=== PATIENT | female | born 1960 | race Caucasian/White ===

== ENCOUNTER 2024-11-11 07:53 | Outpatient (AMB) | payer OTHER, SELFPAY ==
--- OUTSIDE RECORDS SUMMARY | 2024-11-11 07:56 | XMS_ITS | Encounter Summary ---
Author Organization [facility] Address [address] [place] [address] [place] [phone] Phone Care Team Providers Care Environmental Services Floor Tech Name Role Phone Vince Wilcox MD Primary Care Provider + [phone] Vince Wilcox MD Primary Care Provider [phone] Bhavna Cormier MD Primary Care Provider [phone] Encounter Details Date Type Department Care Team (Late st Contact Info) Description 01/24/2021 Procedure Pass [facility] Endoscopy Admitting Dept Virtual Department [address] [place] [address] [id number] Social History Tobacco Use Types Packs/Day Years Used Date Smoking Tobacco: Former Cigarettes Q uit: 2018 Smokeless Tobacco: Former Alcohol Use Standard Drinks/Week Comments Not Currently 0 (1 standard drink = 0.6 oz pur e alcohol) Comments Unknown Sex and Gender Information Value Date Recorded Sex Assigned at Female 01/24/2021 10:32 AM EDT Legal Sex Female 8:15 AM EDT Gender Identity Female 01/24/2021 10:32 AM EDT Sexual Orientation Straight 01/24/2021 10 :32 AM EDT documented as of this encounter Plan of Treatment Upcoming Encounters Date Type Department Care Team (Late st Contact Info) Description 02/17/2025 10:00 AM EST Office Visit [facility] [address] [place], [place] [phone] Bhavna Cormier MD [address] [facility], [address] [place], [place] [id number] [email or web address] 04/29/2025 10:10 AM EST Office Visit [facility] [address] [place] [address] John Hamlin [address] [address] 11/09/2025 8:45 AM EDT Appointment [facility] [address] [place] [address] [address] [place] [address] Leonel Wesley, [address] [place] [address] 11/22/2025 9:00 AM EDT Office Visit [facility] [address] [place] [address], [address] [place] [address] Leonel Wesley, [address] [address] [email or web address] documented as of this encounter Visit Diagnoses Not on filedocumented in this encounter Care Teams Environmental Services Floor Tech Relationship Specialty Start Date End Date Vince Wilcox MD PCP - General Internal Medicine 09/13/20 02/04/24 Vince Wilcox MD [address] [place] [address] PCP - General Internal Medicine 02/05/24 06/02/24 Bhavna Cormier MD 234 [facility] 7 [place] [address] [email or web address] PCP - General Family Medicine 06/03/24 documented as of this encounter Additional Source Comments The information contained in this document represents components of the legal health record. It is not the complete legal health record.[facility]
[2024-11-11 08:02] VITALS: BP 102/62; PULSE 69; O2SAT 98; BMI 25.1
--- NOTE | 2024-11-11 08:02 | A.OFFPC_ITS ---
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 Allergies statin Adverse Reaction (Mild, Uncoded 11/11/24 08:22) Muscle Cramps Medication List - Last Reconciled 11/11/24 by Renée Gan PA-C alendronate 70 mg PO QWEEK xcxldaokgn-eblrxfdkhgkii-tcvj 50-325-40 mg 1 tab PO Q4-6H PRN dextroamphetamine-amphetamine 5 mg (Adderall) 5 mg PO DAILY levothyroxine (Unithroid) 75 mcg PO DAILY omeprazole 20 mg PO DAILY rosuvastatin 20 mg PO DAILY trazodone 50 mg PO BEDTIME PRN Tobacco use date assessed: 11/11/24 Fall risk assessment: No Falls in past year Last assessed Fall Risk: 11/11/24 Dental Screening Dental Screen Date: 11/11/24 Did you have a dental visit in the last 12 months?: Yes Did you have a dental problem in the last 6 months where you did not have access to dental care?: No Was dental information given to patient?: 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 She was last seen by her PCP 03/2024 for physical exam. At that time she was following with [facility] for bilateral cortisone injections of the hip and starting with PT. Migraines had improved and patient was continued on Adderall for ADD. Presenting for a new patient visit to establish care and discuss ongoing management of multiple chronic conditions. The patient has been managing osteoporosis with alendronate due to insurance coverage issues with her previous medication, Prolia. She is following with Dr. Hamlin through [facility] endo. The patient has a history of hyperlipidemia and has experienced muscle pain with statins, which she manages with tonic water and CoQ10 supplements. The patient experiences optical migraines approximately twice a month, managed with Fioricet. GERD is managed with omeprazole, which she uses as needed, particularly when consuming foods that may trigger symptoms. Carotid Artery Disease is monitored annually by cardiology, with no current surgical indication. Emphysema diagnosed but not requiring inhalers; the patient attends annual lung screenings. Mammogram: 12/2023. 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 1. Little interest or pleasure in doing things: not at all 2. Feeling down, depressed, or hopeless: not at all 3. Trouble falling or staying asleep, or sleeping too much: not at all 4. Feeling tired or having little energy: not at all 5. Poor appetite or overeating: not at all 6. Feeling bad about yourself - or that you are a failure or have let yourself or your family down: not at all 7. Trouble concentrating on things, such as reading the newspaper or watching television: not at all 8. Moving or speaking so slowly that other people could have noticed. Or the opposite - being so fidgety or restless that you have been moving around a lot more than usual: not at all 9. Thoughts that you would be better off or of hurting yourself in some way: not at all Total score: 0 Depression Screening Interpretation: Negative Depression Screening Done: Yes 69880 - PHQ-9 Billing: Yes Source: Developed by Drs. Alexis Granger, Dodie Reyes, Mikie Garcia and colleagues, with an educational rocco from [employer]. Thrive Questionnaire Date Thrive assessed: 11/09/24 I am a: Patient What is your living situation today?: I have a steady place to live Within the past 12 months, did the food you bought not last and you didn't have the money to get more?: Never true Within the past 12 months, did you worry whether your food would run out before you got money to buy more?: Never true Do you have trouble paying for medicines?: I choose not to answer this question Do you have trouble getting transportation to medical appointments?: No Do you have trouble paying your heating and electricity bill?: I choose not to answer this question Do you have trouble taking care of your child, family member or friend?: No Do you have trouble with day-to-day activities such as bathing, preparing meals, shopping, managing finances, etc.?: No Are you currently unemployed and looking for a job?: No Are you interested in more education?: Yes Please select the resources that you would like help with: None Currently or been in a relationship where the following occur: No concerns reported THRIVE Score: 0 AUDIT C Alcohol Use Questionnaire (AUDIT-C) 1. How often do you have a drink containing alcohol?: Never 3. How often do you have six or more drinks on one occasion?: Never Total Score: 0 Score Reviewed/Action Taken: Yes DIAN-7 AMB Questionnaire DIAN-7 Date DIAN - 7 assessed: 11/11/24 Feeling nervous, anxious, or on edge: 0 = Not at all Not being able to stop or control worryin = Not at all Worrying too much about different things: 0 = Not at all Trouble relaxin = Not at all Being so restless that it is hard to sit still: 0 = Not at all Becoming easily annoyed or irritable: 0 = Not at all Feeling afraid as if something awful might happen: 0 = Not at all Total DIAN-7 score (0-4 normal; 5-9 mild; 10-14 moderate; 15-21 severe): 0 Source: Developed by Dodie Singh Kurt Kroenke and colleagues, with an educational rocco from [employer]. DIAN-7 Assessment Billing DIAN-7 Assessment Tool: DIAN-7 Assessment 58808 Review of Systems Const Denies body aches, Denies fatigue, Denies fever(s), Denies frequent falls and Reports headache(s) (2-3 months) Eyes Reports no additional complaints, Denies change in vision and Reports requires corrective lenses ENT Denies dysphagia, Denies dizziness, Denies facial pain, Reports headache(s) (2-3 months) and Denies odynophagia Card Denies chest pain, Denies syncope, Denies irregular heart rhythm, Denies leg edema, Denies lightheadedness and Denies dyspnea Resp Denies cough and Denies dyspnea GI Denies abdominal pain, Denies constipation, Denies dysphagia, Denies dyspepsia, Denies diarrhea, Denies nausea, Denies odynophagia and Denies vomiting Denies urinary frequency, Denies dysuria, Denies urinary hesitancy and Denies urinary urgency Musc Details: pepito knee pain Denies back pain Skin/Breast Reports system reviewed and no additional complaints, except as documented Neuro Denies dizziness, Denies syncope, Denies frequent falls and Reports headache(s) (2-3 months) Psych Reports no additional complaints Endo Denies fatigue Physical exam (Primary Care) Vital Signs: Last Vital Signs Pulse 69 11/11/24 08:02 BP 102/62 11/11/24 08:02 Pulse Ox 98 11/11/24 08:02 Oxygen Delivery Method Room Air 11/11/24 08:02 BMI result Body Mass Index 25.1 Tobacco/Smoking Status: Tobacco use Status Tobacco use date assessed 11/11/24 11/11/24 08:17 Patient Tobacco Use Status Former Tobacco user 11/11/24 08:17 Tobacco use type Cigarette 11/11/24 08:17 e-Cigarette/Vaping Use Never Used 11/11/24 08:17 PHQ-9: PHQ-9 Score PHQ-9: Total score 0 11/11/24 08:21 Depression Screening Interpretation: Negative Thrive Assessment: Date of Thrive Assessment Date Thrive assessed 11/09/24 11/11/24 08:02 Currently or been in a relationship where the following occur: No concerns reported Const General: cooperative, healthy appearing, comfortable and no acute distress Orientation/consciousness: patient oriented x3 [facility] Head: Yes normocephalic Ears: hearing grossly normal bilaterally General nose exam: Normal external nose present Eyes General: appearance normal, both eyes and all related structures Conjunctivae: conjunctivae normal Neck Neck: Yes full ROM and Yes no lymphadenopathy Resp Effort & Inspection: normal respiratory effort Auscultation: clear to auscultation bilaterally, no crackles, no rales, no rhonchi and no wheezes Cardio Rate: regular rate Rhythm: regular rhythm Skin General skin exam: no rashes or lesions noted Neuro General: patient oriented x3 Gait exam (Neuro): Normal gait present Extrem General: Yes normal to inspection, Yes full ROM and No edema Psych Affect: normal affect Attitude: cooperative Insight: Good insight present (Psych) Judgement: Good judgement present (Psych) Coding Level of Care Code New Pt Level 4 (76888) Diagnoses ADD (attention deficit disorder) F98.8 Bilateral carotid artery disease I77.9 Hypothyroidism following radioiodine therapy E89.0 Osteoporosis M81.0 PUD (peptic ulcer disease) K27.9 Migraines G43.909 Emphysema lung J43.9 Insomnia G47.00 Hyperglycemia R73.9 Hypercholesterolemia E78.00 Additional Codes DIAN-7 Assessment Billing - DIAN-7 Assessment Tool: DIAN-7 Assessment 66631 ([id number]) PHQ-9 - 12812 - PHQ-9 Billing: Yes ([id number]) Assessment & Plan Assessment & Plan (1) ADD (attention deficit disorder): Code(s): F98.8 - Other specified behavioral and emotional disorders with onset usually occurring in childhood and adolescence Category: Medical Plan: She is on Adderall 5mg QD and feels this is beneficial. Plan to maintain this Rx for this patient. (2) Bilateral carotid artery disease: Comment: Not surgically and follows yearly with vascular Code(s): I77.9 - Disorder of arteries and arterioles, unspecified Category: Medical Plan: Following with [facility] cardiology yearly for this concern. She was previously on ASA but was discontinue and she is unsure of the reason. Plan to obtain records from cardiology and continue to follow with their office. LDL goal less than 70. (3) Hypothyroidism following radioiodine therapy: Code(s): E89.0 - Postprocedural hypothyroidism Category: Medical Plan: Continue to follow with endocrinology and currently on Levothyroxine 75mcg. Ordered for repeat blood work. (4) Osteoporosis: Comment: Dr. Hamlin [facility] endo Code(s): M81.0 - Age-related osteoporosis without current pathological fracture Category: Medical Plan: She is currently following with [facility] endo and was previously on Prolia injections prior to insurance changing. She was switched to Alendronate as the injection was no longer covered. Reviewed adverse reactions of this medication with the patient today. Continue to follow with endo. (5) PUD (peptic ulcer disease): Code(s): K27.9 - Peptic ulcer, site unspecified, unspecified as acute or chronic, without hemorrhage or perforation Category: Medical Plan: Avoid trigger foods such as citrus, tomato products, soda, caffeine, spicy foods and other foods that may be irritating to your stomach. Avoid laying flat 3-4 hours after eating and elevate the head of the bed 30 degrees to prevent acid from moving into the esophagus. (6) Migraines: Code(s): G43.909 - Migraine, unspecified, not intractable, without status migrainosus Category: Medical Plan: Patient experiences migraines 1-2x per month and uses Fioricet as needed. She will continue on this medication as she has had good benefit. Should migraines become more frequent will plan to discuss maintenance medication at that time. (7) Emphysema lung: Comment: Annual lung cancer screening Code(s): J43.9 - Emphysema, unspecified Category: Medical Plan: She participates in annual lung cancer screening program through [facility]. Not currently on inhalers and feels her breathing is well managed at this time. (8) Insomnia: Code(s): G47.00 - Insomnia, unspecified Category: Medical Plan: Patient uses Trazodone with good benefit. (9) Hyperglycemia: Code(s): R73.9 - Hyperglycemia, unspecified Category: Medical Plan: Decrease the amount of carbohydrates such as pasta, bread, rice, and potatoes and limit the amount of sweets. Although fruits are generally healthy they should be eaten in moderation as they are still high in sugar. Given resources today and ordered for updated blood work. (10) Hypercholesterolemia: Code(s): E78.00 - Pure hypercholesterolemia, unspecified Category: Medical Plan: Avoid foods that are high in cholesterol such as red meat, fried foods, eggs and baked goods. Triglyceride goal of less than 150 and LDL goal of less than 70. Continue on Rosuvastatin 20mg. Orderedfor updated blood work. Plan The patient will continue with alendronate for osteoporosis management, ensuring adherence to administration guidelines to prevent esophageal irritation. Regular follow-up with the animal husbandry teacher is advised to monitor bone health and medication efficacy. For hyperlipidemia, the patient is encouraged to maintain consistent medication adherence and consider lifestyle modifications, including dietary changes and increased physical activity, to manage cholesterol levels effectively. Migraine management will continue with Fioricet as needed, and the patient is advised to monitor for any changes in frequency or severity. Hypothyroidism will be managed with ongoing levothyroxine therapy, with regular monitoring of thyroid function tests. GERD management includes the use of omeprazole as needed, particularly when consuming trigger foods. Insomnia management will continue with trazodone as needed, with attention to sleep hygiene practices. The patient will continue to monitor carotid artery disease with annual evaluations, and emphysema will be monitored through annual lung screenings. This note was constructed using voice recognition software. While every effort has been made to ensure accuracy and auto design checker, still areas may have been included sometimes these areas may affect the content or meeting of the given symptoms. Total time spent caring for the patient today was 30 minutes. This includes time spent before the visit reviewing the chart, time spent during the visit, and time spent after the visit and documentation. Patient was informed a nd verbally consented to the use of an ambient scribe for clinic note documentation during this visit. Orders: Orders Lipid Panel Today E78.00 - Pure hypercholesterolemia, unspecified, I77.9 - Disorder of arteries and arterioles, unspecified TSH reflex Free T4 Today E89.0 - Postprocedural hypothyroidism Complete Blood Count Auto Diff Today K27.9 - Peptic ulcer, site unspecified, unspecified as acute or chronic, without hemorrhage or perforation, Z00.00 - Encounter for general adult medical examination without abnormal findings Vitamin B12 and Folate Today M81.0 - Age-related osteoporosis without current pathological fracture, Z13.21 - Encounter for screening for nutritional disorder Vitamin D 25-OH Total Today M81.0 - Age-related osteoporosis without current pathological fracture, Z13.21 - Encounter for screening for nutritional disorder Hemoglobin A1c Today E11.65 - Type 2 diabetes mellitus with hyperglycemia, R73.9 - Hyperglycemia, unspecified Free T4 (Free Thyroxine) Today E89.0 - Postprocedural hypothyroidism
== END 2024-11-11 08:50 | disposition home or self-care (01) ==
LOC: HO.HMCH 07:53
DX: J43.9 Emphysema, unspecified (principal); F98.8 Other specified behavioral and emotional disorders with onset usually occurring in childhood and adolescence; I77.9 Disorder of arteries and arterioles, unspecified; E89.0 Postprocedural hypothyroidism; M81.0 Age-related osteoporosis without current pathological fracture; K27.9 Peptic ulcer, site unspecified, unspecified as acute or chronic, without hemorrhage or perforation; G43.909 Migraine, unspecified, not intractable, without status migrainosus; G47.00 Insomnia, unspecified; R73.9 Hyperglycemia, unspecified; E78.00 Pure hypercholesterolemia, unspecified

== ENCOUNTER → 2024-11-11 07:53 | Outpatient (BNVA) | payer OTHER, SELFPAY | DX: M81.0 Age-related osteoporosis without current pathological fracture (principal); J43.9 Emphysema, unspecified; F98.8 Other specified behavioral and emotional disorders with onset usually occurring in childhood and adolescence; E78.00 Pure hypercholesterolemia, unspecified; E03.9 Hypothyroidism, unspecified; G47.00 Insomnia, unspecified; G43.909 Migraine, unspecified, not intractable, without status migrainosus; R35.0 Frequency of micturition | CPT/HCPCS: 96127 ==

== ENCOUNTER 2024-12-12 09:33 | Outpatient (REF) | payer OTHER, SELFPAY ==
--- OUTSIDE RECORDS SUMMARY | 2024-12-12 09:38 | XMS_ITS | Encounter Summary ---
Author Organization [facility] Address [address] [place] [address] Phone Care Team Providers Care Leather Stamper Name Role Phone Vince Wilcox MD Primary Care Provider [phone] Vince Wilcox MD Primary Care Provider [phone] Bhavna Cormier MD Primary Care Provider [phone] Encounter Details Date Type Department Care Team (Latest Contact Info) Description 09/14/2020 Transcribe Orders Virtual Department [address] [place] [address] Dodie Norman NP [address] [place] [id number] Dysphagia, pharyngoesophageal phase (Primary Dx) Social History Tobacco Use Types Packs/Day Years Used Date Smoking Tobacco: Never Assessed Comments Unknown Sex and Gender Information Value [...] Description 02/17/2025 10:00 AM EST Office Visit [facility] [address] [place], [place] [phone] Bhavna Cormier MD [address] [facility], [address] [place] [address] [email or web address] 04/29/2025 10:10 AM EST Office Visit [facility] [address] [place] [address] [place] [address] John Hamlin, [address] [address] 11/09/2025 8:45 AM EDT Appointment [facility] [address] [place] [address] Leonel Wesley, [address] [place] [address] 11/22/2025 9:00 AM EDT Office Visit [facility] [address] [place] [address] [address] [facility], [address] [place] [address] Leonel Wesley, [address] [place] [address] [email or web address] documented as of this encounter Visit Diagnoses Diagnosis Dysphagia, pharyngoesophageal phase- Primary documented in this encounter Care Teams Leather Stamper Relationship Specialty Start Date End Date Vince Wilcox MD PCP - General Internal Medicine 09/13/20 02/04/24 Vince Wilcox MD [facility] [address] PCP - General Internal Medicine 02/05/24 06/02/24 Bhavna Cormier MD [address] [facility], [address] [place] [address] [email or web address] PCP - General Family Medicine 06/03/24 documented as of this encounter Additional Source Comments The information contained in this document represents components of the legal health record. It is not the complete legal health record.[facility]
--- OUTSIDE RECORDS SUMMARY | 2024-12-12 09:38 | XMS_ITS | Encounter Summary ---
Author Organization [facility] Address [address] [place] [address] Phone Care Team Providers Care Cigar Packer And Shader Name Role Phone Vince Wilcox MD Primary Care Provider [phone] Vince Wilcox MD Primary Care Provider [phone] Bhavna Cormier MD Primary Care Provider [phone] Encounter Details Date Type Department Care Team (Late st Contact Info) Description 10/07/2020 Ancillary Orders Virtual Department 30 [place] [address] Dodie Norman NP 10 [place] [address] Dysphagia, unspecified type Social History Tobacco Use Types Packs/Day Years [...] Description 02/17/2025 10:00 AM EST Office Visit [facility] [address] [place] [address] Bhavna Cormier MD [address] [place] [address], [address] [place] [address] [email or web address] 04/29/2025 10:10 AM EST Office Visit [facility] [address] [place] [address] [place] [address] John Hamlin [address] [address] 11/09/2025 8:45 AM EDT Appointment [facility] [address] [place] [address] Leonel Wesley, [address] [place] [address] 11/22/2025 9:00 AM EDT Office Visit [facility] [address] [place] [address], [address] [place] [address] Leonel Wesley [address] [place] [address] documented as of this encounter Results * FL BARIUM SWALLOW ESOPHAGRAM DOUBLE CONTRAST (10/28/2020 9:33 AM EDT) Anatomical Region Laterality Modality Chest Computed Radiogr aphy 10/28/2020 10:2 2 AM EDT Impressions 10/28/2020 10:32 AM EDT 1.Severe esophageal dysmotility. 2.Suggestion of ulceration of the distal esophagus. Recommend direct visualization with endoscopy. 3.Large hiatal hernia. Narrative 10/28/2020 10:32 AM EDT TECHNIQUE: BARIUM SWALLOW was performed with Sodium Carbonate and Barium. OPERATORS: Dr. Aquiles Ross COMPARISON: None available. FINDINGS: Swallow: The swallowing mechanism was grossly normal. There was esophageal dysmotility, with nonpropulsive contractions and tertiary contractions identified. During swallowing of heavy barium liquid, there was the suggestion of ulceration of the distal esophagus, though this was not definitively present during swallowing of thin barium. The esophagus was normally distensible. Gastroesophageal junction: There was a large hiatal hernia. Reflux: Assessment for gastroesophageal reflux was equivocal for evidence of reflux. A barium tablet was administered, which passed easily into the stomach. Radiation Exposure: Fluoroscopy Time: 2 minutes 38 seconds, Dose: 70.48 mGy, Dose Area Product (DAP): 1304.19 uGy * m^2, Number of total images: 437 Procedure Note Aquiles Ross MD - 10/28/2020 TECHNIQUE: BARIUM SWALLOW was performed with Sodium Carbonate and Barium. OPERATORS: Dr. Aquiles Ross COMPARISON: None available. FINDINGS: Swallow: The swallowing mechanism was grossly normal. There wasesophageal dysmotility, with nonpropulsive contractions and tertiarycontractions identified. During swallowing of heavy barium liquid, therewas the suggestion of ulceration of the distal esophagus, though this wasnot definitively present during swallowing of thin barium. The esophaguswas normally distensible. Gastroesophageal junction: There was a large hiatal hernia. Reflux: Assessment for gastroesophageal reflux was equivocal for evidenceof reflux. A barium tablet was administered, which passed easily into the stomach. Radiation Exposure: Fluoroscopy Time: 2 minutes 38 seconds, Dose: 70.48 mGy, Dose Area Product (DAP): 1304.19 uGy * m^2, Number of total images: 437 IMPRESSION: 1.Severe esophageal dysmotility. 2.Suggestion of ulceration of the distal esophagus. Recommend directvisualization with endoscopy. 3.Large hiatal hernia. Dodie Norman NP IMG FL MISC Final Res ult documented in this encounter Visit Diagnoses Diagnosis Dysphagia, unspecified type Dysphagia, unspecified type documented in this encounter Care Teams Cigar Packer And Shader Relationship Specialty Start Date End Date Vince Wilcox MD PCP - General Internal Medicine 09/13/20 02/04/24 Vince Wilcox MD [address] [place] [address] PCP - General Internal Medicine 02/05/24 06/02/24 Bhavna Cormier MD [address] [place] [address] 7 [place] [address] [email or web address] PCP - General Family Medicine 06/03/24 documented as of this encounter Additional Source Comments The information contained in this document represents components of the legal health record. It is not the complete legal health record.[facility]
--- OUTSIDE RECORDS SUMMARY | 2024-12-12 09:38 | XMS_ITS | Encounter Summary ---
Author Organization [facility] Address [address] [place] [address] Phone Care Team Providers Care Baseball Pitcher Name Role Phone Vince Wilcox MD Primary Care Provider [phone] Vince Wilcox MD Primary Care Provider [phone] Bhavna Cormier MD Primary Care Provider Reason for Referral * MRI/CAT Scan - Closed Specialty Diagnoses / Procedures Referred By Michael wilson Referred To Contact Radiology Diagnoses Abdominal pain, unspecified abdominal location Procedures CT Abdomen/Pelvis CHG CT SCAN,ABDOMENT AND PELVIS,W CONTRAST Arleth Redd PA 10 [place] [address] Phone: tel: fax: Referral ID Status Reason Start Date Expiration Date Visits Re quested Visits Authorized [id number] Closed 05/01/2023 06/30/2023 1 1 Encounter Details Date Type Department Care Team (Latest Contact Info) Description 05/01/2023 Transcribe Orders Virtual Department [address] [place] [address] Arleth Redd PA 10 [place] [address] Abdominal pain, unspecified abdominal location (Primary Dx) Social History Tobacco Use Types Packs/Day Years Used Date Smoking Tobacco: Former Cigarettes 2017 Smokeless Tobacco: Former Alcohol Use Standard Drinks/Week Comments Not Currently 0 (1 standard drink = 0.6 oz pur e alcohol) Education Answer Date Recorded Are you interested in more education? Not on kim e 07/28/2022 Are you concerned about learning? Not on file 07/28/2022 No 07/28/2022 No 07/28/2022 Digital Access Answer Date Recorded No 08/28/2022 No 08/28/2022 Reliable internet access at home? Not on file 08/28/2022 Device with a working camera? 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 Not on file Not on file documented as of this encounter Plan of Treatment Upcoming Encounters Date Type Department Care Team (Late st Contact Info) Description 02/17/2025 10:00 AM EST Office Visit [facility] [address] [place] [address] Bhavna Cormier MD 234 [facility] 7 [place] [address] [email or web address] 04/29/2025 10:10 AM EST Office Visit [facility] [address] [place] [address] John Hamlin [address] [address] 11/09/2025 8:45 AM EDT Appointment [facility] [place] 3rd [place] [address] Leonel Wesley, 22 [facility] [address] [place] [address] .[place] 11/22/2025 9:00 AM EDT Office Visit [facility] 22 [facility] 3rd Floor, [address] [place] [address] Leonel Wesley DO 22 [facility] [address] [place] [address] [email or web address] documented as of this encounter Results * CT ABDOMEN/PELVIS WITH CONTRAST (06/06/2023 4:39 PM EST) Anatomical Region Laterality Modality Abdomen, Pelvis Computed Tomogra phy 06/07/2023 5:29 PM EST Impressions 06/08/2023 6:44 AM EST Impression: No abdominopelvic acute inflammation. Moderate-sized hiatal hernia containing nonobstructed stomach. Mild extrahepatic bile duct dilation; a cause is not visualized. No intrahepatic bile duct dilation or abnormal gallbladder distention. Indeterminate 1.9 cm left ovarian lesion. RECOMMENDATION: -Consider abdominal MRI/MRCP to further evaluate for a cause of mild extrahepatic bile duct dilation. -Consider pelvic ultrasound to further evaluate left ovarian finding. Narrative 06/08/2023 6:[address] ABDOMEN/PELVIS WITH CONTRAST Referring clinician's provided indication for this examination in Epic: Outside Radiology Order; ABDOMINAL PAIN TECHNIQUE: Multidetector-row CT of the abdomen and pelvis was performed after administration of intravenous contrast using tailored dose modulation techniques. Images were reconstructed in the axial, coronal, and sagittal planes. COMPARISON: FL BARIUM SWALLOW ESOPHAGRAM DOUBLE CONTRAST FINDINGS: Lower Chest: Moderate sized hiatal hernia. Subsegmental atelectasis at the posterior lower lobes. Liver: No suspicious focal lesion. Biliary: Dilation of extrahepatic bile duct measuring up to 10 mm diameter. No intrahepatic bile duct dilation. Nondistended gallbladder with fundal adenomyomatosis. Spleen: No splenomegaly or suspicious focal lesion. Pancreas: No mass or main duct dilation. Adrenal Glands: No nodule. Kidneys/Ureters: No urolithiasis, hydronephrosis, or solid renal mass. Pelvic Organs/Bladder: Hysterectomy. No focal bladder wall thickening. Left ovary contains a 1.9 cm hypoattenuating round lesion (3:159). Bowel: No abnormal wall thickening or distension. Large colonic stool volume.. Peritoneum/Retroperitoneum: No free fluid, free air, or mass. Lymph Nodes: No abnormally enlarged lymph nodes. Vessels: No aortic aneurysm. Atherosclerotic changes. Bones/Soft Tissues: No destructive osseous lesion. Left iliac sclerotic lesion, likely bone island. Grade 1 degenerative anterolisthesis of L5 on S1. Degenerative changes. Procedure Note Josiah Valenzuela MD - 06/08/2023 CT ABDOMEN/PELVIS WITH CONTRAST Referring clinician's provided indication for this examination in Epic:Outside Radiology Order; ABDOMINAL PAIN TECHNIQUE: Multidetector-row CT of the abdomen and pelvis was performedafter administration of intravenous contrast using tailored dosemodulation techniques. Images were reconstructed in the axial, coronal,and sagittal planes. COMPARISON: FL BARIUM SWALLOW ESOPHAGRAM DOUBLE CONTRAST FINDINGS: Lower Chest: Moderate sized hiatal hernia. Subsegmental atelectasis at theposterior lower lobes. Liver: No suspicious focal lesion. Biliary: Dilation of extrahepatic bile duct measuring up to 10 mmdiameter. No intrahepatic bile duct dilation. Nondistended gallbladderwith fundal adenomyomatosis. Spleen: No splenomegaly or suspicious focal lesion. Pancreas: No mass or main duct dilation. Adrenal Glands: No nodule. Kidneys/Ureters: No urolithiasis, hydronephrosis, or solid renal mass. Pelvic Organs/Bladder: Hysterectomy. No focal bladder wall thickening.Left ovary contains a 1.9 cm hypoattenuating round lesion (3:159). Bowel: No abnormal wall thickening or distension. Large colonic stoolvolume.. Peritoneum/Retroperitoneum: No free fluid, free air, or mass. Lymph Nodes: No abnormally enlarged lymph nodes. Vessels: No aortic aneurysm. Atherosclerotic changes. Bones/Soft Tissues: No destructive osseous lesion. Left iliac scleroticlesion, likely bone island. Grade 1 degenerative anterolisthesis of L5 onS1. Degenerative changes. IMPRESSION: Impression: No abdominopelvic acute inflammation. Moderate-sized hiatal hernia containing nonobstructed stomach. Mild extrahepatic bile duct dilation; a cause is not visualized. Nointrahepatic bile duct dilation or abnormal gallbladder distention. Indeterminate 1.9 cm left ovarian lesion. RECOMMENDATION: -Consider abdominal MRI/MRCP to further evaluate for a cause of mildextrahepatic bile duct dilation. -Consider pelvic ultrasound to further evaluate left ovarian finding. us Arleth KHAN IMG CT ABD/PELVIS Final Res ult documented in this encounter Visit Diagnoses Diagnosis Abdominal pain, unspecified abdominal location- Primary Abdominal pain, unspecified abdominal location documented in this encounter Care Teams Baseball Pitcher Relationship Specialty Start Date End Date Vince Wilcox MD PCP - General Internal Medicine 09/13/20 02/04/24 [place] [address] [place] [address] PCP - General Internal Medicine 02/05/24 06/02/24 Bhavna Cormier MD [address] [place] [address], [address] [place] [address] [email or web address] PCP - General Family Medicine 06/03/24 documented as of this encounter Additional Source Comments The information contained in this document represents components of the legal health record. It is not the complete legal health record.[facility]
--- OUTSIDE RECORDS SUMMARY | 2024-12-12 09:38 | XMS_ITS | Encounter Summary ---
Author Organization [facility] Address [facility] [employer] [facility] [address] [place] [address] Phone Care Team Providers Care Hose Sprayer Name Role Phone Vince Wilcox MD Primary Care Provider [phone] Vince Wilcox MD Primary Care Provider [phone] Bhavna Cormier MD Primary Care Provider [phone] Encounter Details Date Type Department Care Team (Late st Contact Info) Description 10/31/2020 Procedure Pass [facility] [address] [place] [address] Social History Tobacco Use Types Packs/Day Years [...] Description 02/17/2025 10:00 AM EST Office Visit [facility] [address] [place] [address] Bhavna Cormier MD 234 [facility], [address] [place], [place] [id number] [email or web address] 04/29/2025 10:10 AM EST Office Visit [facility] [address] [place] [address] John Hamlin, [address] [address] 11/09/2025 8:45 AM EDT Appointment [facility] [place] [address] [place] [address] Leonel Wesley, DO [address] [place] [address] [place] [address] 11/22/2025 9:00 AM EDT Office Visit [facility] [address], [address] [place] [address] Leonel Wesley [address] [place] [address] [email or web address] documented as of this encounter Visit Diagnoses Not on filedocumented in this encounter Care Teams Hose Sprayer Relationship Specialty Start Date End Date Vince Wilcox MD PCP - General Internal Medicine 09/13/20 02/04/24 Vince Wilcox MD [facility] [address] PCP - General Internal Medicine 02/05/24 06/02/24 Bhavna Cormier MD 234 [facility] 7 [place] [address] [email or web address] PCP - General Family Medicine 06/03/24 documented as of this encounter Additional Source Comments The information contained in this document represents components of the legal health record. It is not the complete legal health record.[facility]
--- OUTSIDE RECORDS SUMMARY | 2024-12-12 09:38 | XMS_ITS | Encounter Summary ---
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 Not on file Not on file documented as of this encounter Plan of Treatment Upcoming Encounters Date Type Department Care Team (Late st Contact Info) Description 02/17/2025 10:00 AM EST Office Visit [facility] [address] [place] [address] Bhavna Cormier MD 234 [facility] 7 [place] [address] [email or web address] 04/29/2025 10:10 AM EST Office Visit [facility] [address] [place] [address] John Hamlin [address] [address] 11/09/2025 8:45 AM EDT Appointment [facility] [address] [address] Leonel Wesley, [address] [address] 11/22/2025 9:00 AM EDT Office Visit [facility] [address] [place] [address], [address] [place] [address] Leonel Wesley, [address] [address] documented as of this encounter Visit Diagnoses Not on filedocumented in this encounter Care Teams Music Pastor Relationship Specialty Start Date End Date Vince Wilcox MD PCP - General Internal Medicine 09/13/20 02/04/24 Vince Wilcox MD [address] [address] PCP - General Internal Medicine 02/05/24 06/02/24 Bhavna Cormier MD [address] [place] [address] 7 [place] [address] [email or web address] PCP - General Family Medicine 06/03/24 documented as of this encounter Additional Source Comments The information contained in this document represents components of the legal health record. It is not the complete legal health record.[facility]
--- OUTSIDE RECORDS SUMMARY | 2024-12-12 09:38 | XMS_ITS | Encounter Summary ---
Author Organization [facility] Address [address] [place] [address] Phone Care Team Providers Care Netezza Developer Name Role Phone Vince Wilcox MD Primary Care Provider [phone] Vince Wilcox MD Primary Care Provider [phone] Bhavna Cormier MD Primary Care Provider Reason for Referral * MRI/CAT Scan - Closed Specialty Diagnoses / Procedures Referred By Michael wilson Referred To Contact Radiology Diagnoses Dilated bile duct Procedures MRI Cholangiopancreatography (MRCP) CHG MRI, ABDOMEN, COMBO Arleth Redd PA [address] [place] [address] Phone: tel: fax: Referral ID Status Reason Start Date Expiration Date Visits Re quested Visits Authorized [id number] Closed 06/17/2023 08/16/2023 1 1 Encounter Details Date Type Department Care Team (Latest Contact Info) Description 06/27/2023 Transcribe Orders Virtual Department 30 [place] [address] Arleth Redd PA [address] [place], [place] [id number] Dilated bile duct (Primary Dx) Social History Tobacco Use Types [...] 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 on file Not on file documented as of this encounter Plan of Treatment Upcoming Encounters Date Type Department Care Team (Late st Contact Info) Description 02/17/2025 10:00 AM EST Office Visit [facility] [address] [place] [address] Bhavna Cormier MD 234 [facility] 7 [place] [address] [email or web address] 04/29/2025 10:10 AM EST Office Visit [facility] [address] [place] [address] Jhon Hamlin, 22 [place] [address] 11/09/2025 8:45 AM EDT Appointment [facility] [place] [address] [place] [address] 3rd [place] [address] Leonel Wesley, 22 [facility] [address] [place] [address] [email or web address] 11/22/2025 9:00 AM EDT Office Visit [facility] 22 [facility] 3rd Floor, [address] [place] [address] Leonel Wesley, 22 [facility] [address] [place] [address] [email or web address] documented as of this encounter Results * MRI CHOLANGIOPANCREATOGRAPHY (MRCP) WITH AND WITHOUT CONTRAST (07/10/2023 5:27 PM EDT) Anatomical Region Laterality Modality Pancreas, Biliary Magnetic Reson ance 07/11/2023 8:41 PM EDT Impressions 07/12/2023 6:00 AM EDT No choledocholithiasis or other cause for mild extrahepatic bile duct dilation identified. No intrahepatic bile duct dilation. Narrative 07/12/2023 6:00 AM EDT MRI CHOLANGIOPANCREATOGRAPHY (MRCP) WITH AND WITHOUT CONTRAST Referring clinician's provided indication for this examination in Epic: Outside Radiology Order; bile duct dilation TECHNIQUE: Multiplanar MR imaging of the abdomen was performed using T1, T2, fat saturated, and diffusion weighted techniques. 2D and 3D MRCP sequences were performed. Dynamic multiphase imaging was also performed after administration of an intravenous gadolinium contrast agent. COMPARISON: CT ABDOMEN/PELVIS WITH CONTRAST FINDINGS: Lower Chest: No significant change in moderate-sized hiatal hernia. Liver: No global signal abnormality or suspicious focal lesion. Few punctate simple appearing cysts. Biliary: No intrahepatic bile duct dilation. Mild extrahepatic bile duct prominence measuring up to 9 mm diameter. No obstructing stone or mass identified. Noninflamed gallbladder with fundal adenomyomatosis. Spleen: No splenomegaly or suspicious focal lesion. Pancreas: No solid mass or main duct dilation. Adrenal Glands: No nodule. Kidneys/Ureters: No solid renal mass or hydronephrosis. Peritoneum/Retroperitoneum: No abdominal free fluid or mass. Lymph Nodes: No lymphadenopathy. Vessels: No abdominal aortic aneurysm. Bones/Soft Tissues: No suspicious osseous lesion. Degenerative changes. Procedure Note Josiah Valenzuela MD - 07/12/2023 MRI CHOLANGIOPANCREATOGRAPHY (MRCP) WITH AND WITHOUT CONTRAST Referring clinician's provided indication for this examination in Epic:Outside Radiology Order; bile duct dilation TECHNIQUE: Multiplanar MR imaging of the abdomen was performed using T1,T2, fat saturated, and diffusion weighted techniques. 2D and 3D MRCPsequences were performed. Dynamic multiphase imaging was also performedafter administration of an intravenous gadolinium contrast agent. COMPARISON: CT ABDOMEN/PELVIS WITH CONTRAST FINDINGS: Lower Chest: No significant change in moderate-sized hiatal hernia. Liver: No global signal abnormality or suspicious focal lesion. Fewpunctate simple appearing cysts. Biliary: No intrahepatic bile duct dilation. Mild extrahepatic bile ductprominence measuring up to 9 mm diameter. No obstructing stone or massidentified. Noninflamed gallbladder with fundal adenomyomatosis. Spleen: No splenomegaly or suspicious focal lesion. Pancreas: No solid mass or main duct dilation. Adrenal Glands: No nodule. Kidneys/Ureters: No solid renal mass or hydronephrosis. Peritoneum/Retroperitoneum: No abdominal free fluid or mass. Lymph Nodes: No lymphadenopathy. Vessels: No abdominal aortic aneurysm. Bones/Soft Tissues: No suspicious osseous lesion. Degenerative changes. IMPRESSION: No choledocholithiasis or other cause for mild extrahepatic bile ductdilation identified. No intrahepatic bile duct dilation. us Arleth KHAN IMG MR ABDOMEN Final Resul t documented in this encounter Visit Diagnoses Diagnosis Dilated bile duct- Primary Dilated bile duct documented in this encounter Care Teams Netezza Developer Relationship Specialty Start Date End Date Vince Wilcox MD PCP - General Internal Medicine 09/13/20 02/04/24 Vince Wlicox MD [address] [place] [address] PCP - General Internal Medicine 02/05/24 06/02/24 Bhavna Cormier MD [address] [place] [address], [address] [place] [address] [email or web address] PCP - General Family Medicine 06/03/24 documented as of this encounter Additional Source Comments The information contained in this document represents components of the legal health record. It is not the complete legal health record.[facility]
--- OUTSIDE RECORDS SUMMARY | 2024-12-12 09:38 | XMS_ITS | Encounter Summary ---
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 [address] [place] [address] Bhavna Cormier MD 234 [facility] 7 [place] [address] [email or web address] [email or web address] 04/29/2025 10:10 AM EST Office Visit [facility] [address] [place] [address] John Hamlin [address] [address] 11/09/2025 8:45 AM EDT Appointment [facility] [address] [address] Leonel Wesley, [address] [address] 11/22/2025 9:00 AM EDT Office Visit [facility] [address] [place] [address], [address] [place] [address] Leonel Wesley, [address] [address] documented as of this encounter Visit Diagnoses Not on filedocumented in this encounter Care Teams Nutrition Club Ambassador Relationship Specialty Start Date End Date Vince Wilcox MD PCP - General Internal Medicine 09/13/20 02/04/24 Vince Wilcox MD [address] [address] PCP - General Internal Medicine 02/05/24 06/02/24 Bhavna Cormier MD [address] [place] [address] 7 [place] [address] [email or web address] PCP - General Family Medicine 06/03/24 documented as of this encounter Additional Source Comments The information contained in this document represents components of the legal health record. It is not the complete legal health record.[facility]
--- OUTSIDE RECORDS SUMMARY | 2024-12-12 09:38 | XMS_ITS | Encounter Summary ---
Author Organization [facility] Address [address] [place] [address] Phone Care Team Providers Care Communications Tower Climber Name Role Phone Bhavna Cormier MD Primary Care Provider Encounter Details Date Type Department Care Team ([facility] st Contact Info) Description 11/09/2024 Telephone [facility] [address] [place] [address] Kiana [email or web address] Social History Tobacco Use Types Packs/Day Years Used Date Smoking Tobacco: Former Cigarettes 2017 Smokeless Tobacco: Former Alcohol Use Standard Drinks/Week Comments Never 0 (1 standard drink = 0.6 oz [...] with a working camera? Not on file Intimate Partner Violence Answer Date R ecorded Are you denied basic needs s uch as food, clothing, or medical care? Deferred 01/30/2024 In the past 12 months have y ou been in a relationship with a person who hurts, threatens, or tries to control you? Deferred 01/30/2024 Are you denied basic needs s uch as food, clothing, or medical care? Deferred 01/30/2024 In the past 12 months have y ou been in a relationship with a person who hurts, threatens, or tries to control you? 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 Hamlin is contracted with her insurance. Informed patient insurance is accepted based off insurance participation grid, pt would like a call back. Please contact and advise. Central Support Oil Refiner (Please do not reply to this user; this inbox is not monitored.) Thank you. documented in this encounter Plan of Treatment Upcoming Encounters Date Type Department Care Team (Late st Contact Info) Description 02/17/2025 10:00 AM EST Office Visit [facility] [address] [place] [address] Bhavna Cormier MD 234 [facility], [address] [place] [address] [email or web address] 04/29/2025 10:10 AM EST Office Visit [facility] [address] [place] [address] John Hamlin DO 22 [place] [address] 11/09/2025 8:45 AM EDT Appointment [facility] [address] 3rd [place] [address] Leonel Wesley, DO 22 [facility] [address] [place] [address] [email or web address] 11/22/2025 9:00 AM EDT Office Visit [facility] [address] Floor, [address] [place] [address] Leonel Wesley, DO 22 [facility] [address] [place] [address] [email or web address] documented as of this encounter Visit Diagnoses Not on filedocumented in this encounter Care Teams Communications Tower Climber Relationship Specialty Start Date End Date Bhavna Cormier MD [address] [place] [address] 7 [place] [address] [email or web address] PCP - General Family Medicine 06/03/24 documented as of this encounter Additional Source Comments The information contained in this document represents components of the legal health record. It is not the complete legal health record.[facility]
--- OUTSIDE RECORDS SUMMARY | 2024-12-12 09:38 | XMS_ITS | Encounter Summary ---
Author Organization [facility] Address [address] [place] [address] Phone Care Team Providers Care Industrial Hygiene Engineer Name Role Phone Bhavna Cormier MD Primary Care Provider Reason for Visit * Reason Onset Date Comments Medication Problem 12/10/2024 Re: Fosamax Encounter Details Date Type Department Care Team (Late st Contact Info) Description 12/10/2024 Telephone [facility] 22 [place] [address] Hayley Hernandez RN 22 [place] [address] [email or web address] Medication Problem (Re: Fosamax) Social History Tobacco Use Types Packs/Day Years [...] Industry 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 I called her back, no answer, left her a voicemail. * Hayley Hernandez RN - 12/11/2024 11:18 AM EDT Call placed to patient, no answer, left message to return call to nurse. * John Hamlin DO - 12/10/2024 4:56 PM EDT Reclast is a bisphosphonate as well but it should not cause any GI problems. I do not know if it isgoing to cause her bone pain as well as she describes. As you know there is also Prolia subcutaneous injections every 6 months but this requires more work from the patient in terms of doing blood work and she would not be able to stop the medication without being placed on either zoledronic acid/Reclast or alendronate. * Hayley Hernandez RN - 12/10/2024 4:06 PM EDT Pt left voicemail, stating thinks having side effect to Fosamax. Reports has been on it for 2 months now. Reports nausea and headache and joint discomfort, exhaustion. States her knees are really bothering her the most. She is trying to get through it, but never had knee pain before. Denies any nausea. She has dry heaved some. She would be due to take her next pill this Saturday, so her last pillwas last Saturday. She is asking if you think would be reasonable for her to do Reclast instead? Pt advised me okay to leave her detailed voicemail when I return her call. documented in this encounter Plan of Treatment Upcoming Encounters Date Type Department Care Team (Late st Contact Info) Description 02/17/2025 10:00 AM EST Office Visit [address] [address] Bhavna Cormier MD [address] [place] [address] 7 [place] [address] [email or web address] 04/29/2025 10:10 AM EST Office Visit [facility] [address] [place] [address] John Hamlin, DO [address] [place] [address] 11/09/2025 8:45 AM EDT Appointment [facility] [place] 3rd [place] [address] Leonel Wesley, DO 22 [facility] [address] [place] [address] 11/22/2025 9:00 AM EDT Office Visit [facility] 22 [facility] 3rd Floor, [address] [place], [place] [phone] Leonel Wesley DO 22 [facility] [address] [place] [address] [email or web address] documented as of this encounter Visit Diagnoses Not on filedocumented in this encounter Care Teams Industrial Hygiene Engineer Relationship Specialty Start Date End Date Bhavna Cormier MD [address] [place] [address] [address] [place] [address] [email or web address] PCP - General Family Medicine 06/03/24 documented as of this encounter Additional Source Comments The information contained in this document represents components of the legal health record. It is not the complete legal health record.[facility]
--- OUTSIDE RECORDS SUMMARY | 2024-12-12 09:38 | XMS_ITS | Encounter Summary ---
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 7 [place] [address] [email or web address] 04/29/2025 10:10 AM EST Office Visit [facility] [address] [place] [address] John Hamlin [address] [address] 11/09/2025 8:45 AM EDT Appointment [facility] [place] [address] Leonel Wesley, [address] [address] 11/22/2025 9:00 AM EDT Office Visit [facility] [address] [place] [address], [address] [place] [address] Leonel Wesley, [address] [address] documented as of this encounter Visit Diagnoses Not on filedocumented in this encounter Care Teams Cost Recorder Relationship Specialty Start Date End Date Vince Wilcox MD PCP - General Internal Medicine 09/13/20 02/04/24 Vince Wilcox MD [address] [address] PCP - General Internal Medicine 02/05/24 06/02/24 Bhavna Cormier MD [address] [place] [address] 7 [place] [address] [email or web address] PCP - General Family Medicine 06/03/24 documented as of this encounter Additional Source Comments The information contained in this document represents components of the legal health record. It is not the complete legal health record.[facility]
--- OUTSIDE RECORDS SUMMARY | 2024-12-12 09:38 | XMS_ITS | Encounter Summary ---
Author Organization [facility] Address [address] [place] [address] [place] [address] Phone Care Team Providers Care Water Resource Consultant Name Role Phone Vince Wilcox MD Primary Care Provider + [phone] Vince Wilcox MD Primary Care Provider [phone] Bhavna Cormier MD Primary Care Provider Encounter Details Date Type Department Care Team (Late st Contact Info) Description 12/30/2020 Procedure Pass [facility] Endoscopy Admitting Dept Virtual Department [address] [place], [place] [phone] Social History Tobacco Use Types Packs/Day Years [...] Encounters Date Type Department Care Team (Late Contact Info) Description 02/17/2025 10:00 AM EST Office Visit [facility] 234 [place], [place] [phone] Bhavna Cormier MD 234 [facility], [address] [place] [address] [email or web address] [email or web address] [email or web address] [email or web address] 04/29/2025 10:10 AM EST Office Visit [facility] 22 [place] [address] John Hamlin [address] [address] [email or web address] 11/09/2025 8:45 AM EDT Appointment [facility] [place] [address] [place] [address] [address] [place] [address] Leonel Wesley, [address] [place] [address] [email or web address] 11/22/2025 9:00 AM EDT Office Visit [facility] [address] [place] [address], [address] [place] [address] Leonel Wesley, [address] [address] [email or web address] documented as of this encounter Visit Diagnoses Not on filedocumented in this encounter Care Teams Water Resource Consultant Relationship Specialty Start Date End Date Vince Wilcox MD PCP - General Internal Medicine 09/13/20 02/04/24 Vince Wilcox MD [address] [place] [address] PCP - General Internal Medicine 02/05/24 06/02/24 Bhavna Cormier MD [address] [place] [address], [address] [place] [address] [email or web address] [email or web address] [email or web address] PCP - General Family Medicine 06/03/24 documented as of this encounter Additional Source Comments The information contained in this document represents components of the legal health record. It is not the complete legal health record.[facility]
--- OUTSIDE RECORDS SUMMARY | 2024-12-12 09:38 | XMS_ITS | Encounter Summary ---
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 on file Not on file documented as of this encounter Plan of Treatment Upcoming Encounters Date Type Department Care Team ([facility] st Contact Info) Description 02/17/2025 10:00 AM EST Office Visit [facility] [address] [place] [address] Bhavna Cormier MD 234 [facility] 7 [place] [address] [email or web address] 04/29/2025 10:10 AM EST Office Visit [facility] [address] [place] [address] John Hamlin [address] [address] 11/09/2025 8:45 AM EDT Appointment [facility] [place] [place] [address] Leonel Wesley, [address] [place] [address] 11/22/2025 9:00 AM EDT Office Visit [facility] [address] [place] [address] [place] [address], [address] [place] [address] Leonel Wesley, [address] [address] documented as of this encounter Visit Diagnoses Not on filedocumented in this encounter Care Teams Green Prize Packer Relationship Specialty Start Date End Date Vince Wilcox MD PCP - General Internal Medicine 09/13/20 02/04/24 Vince Wilcox MD [address] [address] PCP - General Internal Medicine 02/05/24 06/02/24 Bhavna Cormier MD [address] [place] [address] 7 [place] [address] [email or web address] PCP - General Family Medicine 06/03/24 documented as of this encounter Additional Source Comments The information contained in this document represents components of the legal health record. It is not the complete legal health record.[facility]
--- OUTSIDE RECORDS SUMMARY | 2024-12-12 09:38 | XMS_ITS | Encounter Summary ---
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 .[email or web address] 04/29/2025 10:10 AM EST Office Visit [facility] [address] [place] [address] John Hamlin [address] [address] 11/09/2025 8:45 AM EDT Appointment [facility] [place] [address] [address] [place] [address] Leonel Wesley, 22 [facility] [address] [place] [address] 11/22/2025 9:00 AM EDT Office Visit [facility] [address] [facility], [address] [place] [address] Leonel Wesley Ally, DO [facility] [address] [place] [address] [email or web address] documented as of this encounter Visit Diagnoses Not on filedocumented in this encounter Care Teams Manager Target Relationship Specialty Start Date End Date Vince Wilcox MD PCP - General Internal Medicine 09/13/20 02/04/24 Vince Wilcox MD [address] [address] PCP - General Internal Medicine 02/05/24 06/02/24 Bhavna Cormier MD [address] [place] [address] [address] [place] [address] [email or web address] PCP - General Family Medicine 06/03/24 documented as of this encounter Additional Source Comments The information contained in this document represents components of the legal health record. It is not the complete legal health record.[facility]
--- OUTSIDE RECORDS SUMMARY | 2024-12-12 09:38 | XMS_ITS | Encounter Summary ---
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 [address] [place] [address] Bhavna Cormier MD [address] [facility] [address] [place] [address] [email or web address] 04/29/2025 10:10 AM EST Office Visit [facility] [address] [place] [address] John Hamlni [address] [address] 11/09/2025 8:45 AM EDT Appointment [facility] [address] [place] [address] Leonel Wesley [address] [place] [id number] 11/22/2025 9:00 AM EDT Office Visit [facility] [address] [facility], [address] [place] [address] Leonel Wesley [address] [address] documented as of this encounter Results * US PELVIS TRANSABDOMINAL PLUS TRANSVAGINAL (06/21/2023 4:43 PM EDT) Anatomical Region Laterality Modality Pelvis, Uterus/Adnexa Ultrasound 06/24/2023 9:41 AM EDT Impressions 06/25/2023 5:00 PM EDT 1. 1.7 cm simple appearing left ovarian avascular cyst corresponds to prior CT findings. Yearly follow-up sonography is recommended per current guidelines 2. Surgically absent right ovary and uterus, per history Narrative 06/25/2023 5:00 PM EDT US PELVIS TRANSABDOMINAL PLUS TRANSVAGINAL Referring clinician's provided indication for this examination in [facility]: Outside Radiology Order; lesion on ovary TECHNIQUE: Pelvic Ultrasound Transabdominal performed for global imaging of the pelvis. Pelvic Ultrasound Transvaginal performed for detailed imaging of the endometrium and/or adnexa. COMPARISON: CT abdomen pelvis 06/06/2023 FINDINGS: Uterus: Surgically absent, per history. Right adnexa: Surgically absent, per history. Left adnexa: The left ovary is poorly visualized sonographically. Overlying bowel gas. Left ovary measures 2.1 x 2.9 x 1.8 cm. Normal color and spectral Doppler waveform analysis. There is a 1.7 x 1.5 x 1.7 cm simple appearing avascular cyst. Free fluid: No significant free fluid. Procedure Note Nita Villalta MD - 06/25/2023 US PELVIS TRANSABDOMINAL PLUS TRANSVAGINAL Referring clinician's provided indication for this examination in [facility]:Outside Radiology Order; lesion on ovary TECHNIQUE: Pelvic Ultrasound Transabdominal performed for global imagingof the pelvis. Pelvic Ultrasound Transvaginal performed for detailedimaging of the endometrium and/or adnexa. COMPARISON: CT abdomen pelvis 06/06/2023 FINDINGS: Uterus: Surgically absent, per history. Right adnexa: Surgically absent, per history. Left adnexa: The left ovary is poorly visualized sonographically. Overlying bowel gas.Left ovary measures 2.1 x 2.9 x 1.8 cm. Normal color and spectral Dopplerwaveform analysis. There is a 1.7 x 1.5 x 1.7 cm simple appearingavascular cyst. Free fluid: No significant free fluid. IMPRESSION: 1. 1.7 cm simple appearing left ovarian avascular cyst corresponds toprior CT findings. Yearly follow-up sonography is recommended per currentguidelines 2. Surgically absent right ovary and uterus, per history us Arleth KHAN IMG US PELVIS Final Resul t documented in this encounter Visit Diagnoses Diagnosis Lesion of ovary- Primary Lesion of ovary documented in this encounter Care Teams Supervisor [employer] Relationship Specialty Start Date End Date Vince Wilcox MD PCP - General Internal Medicine 09/13/20 02/04/24 Vince Wilcox MD [address] [place] [id number] PCP - General Internal Medicine 02/05/24 06/02/24 Bhavna Cormier MD [address] [place] [address], [address] [place] [address] [email or web address] PCP - General Family Medicine 06/03/24 documented as of this encounter Additional Source Comments The information contained in this document represents components of the legal health record. It is not the complete legal health record.[facility]
--- OUTSIDE RECORDS SUMMARY | 2024-12-12 09:38 | XMS_ITS | Clinical Summary ---
Author Organization [facility] Address [address] [place] [id number] Phone Care Team Providers Care Head Counselor Name Role Phone Bhavna Cormier MD Primary Care Provider [phone] Allergies Active Allergy Reactions Criticality Noted Date Comments Atorvastatin Other (See Comments) 10/31/2020 Leg cramps Codeine Unknown 12/25/2022 Gi upset Medications levothyroxine (SYNTHROID, LEVOTHROID) 75 MCG tablet levothyroxine 75 mcg tablet Active omeprazole (PRILOSEC) 20 MG capsule Take 20 mg by mouth as needed. Active dextroamphetamin e-amphetamine (ADDERALL) 5 mg Tab Take 5 mg by mouth daily. Active ascorbic acid, vitamin C, (VITAMIN C) 500 MG tablet Take 500 mg by mouth daily. Active cholecalciferol (VITAMIN D3) 25 MCG (1,000 unit) tablet Take 1,000 Units by mouth daily. Active butalbital-aceta minophen-caffein e (FIORICET, ESGIC) 50-325-40 mg per tablet Take 1 tablet by mouth every 4 (four) hours as needed for pain (specific location in comments). Active calcium carbonate 1,250 mg (500 mg elemental) capsule Take 500 mg by mouth daily. Active magnesium 250 mg Tab Take 210 mg by mouth daily. Active traZODone (DESYREL) 50 MG tablet Take 50 mg by mouth as needed. 01/16/20 Active chlorhexidine (PERIDEX) 0.12 % solution 10/31/19 23 Active ibuprofen (ADVIL,MOTRIN) 800 MG tablet Take 800 mg by mouth every 8 (eight) hours. 10/31/19 23 Active PHENobarbital-hy oscyamine-atropi ne-scopolamine () 16.2-0.1037 -0.0194 mg Tab Take 1 tablet by mouth as needed. 05/06/19 24 Active denosumab (PROLIA SUBQ) 10/23/19 24 Active docusate sodium (COLACE) 100 MG capsule Take 1 capsule (100 mg total) by mouth 2 (two) times a day. 60 capsule 6 01/30/20 24 Active meloxicam (MOBIC) 15 MG tablet Take 1 tablet by mouth every morning. 02/10/20 24 Active rosuvastatin (CRESTOR) 20 MG tablet TAKE 1 TABLET BY MOUTH DAILY 90 tablet 3 08/11/19 25 Active alendronate (FOSAMAX) 70 MG tabletIndication s:Other osteoporosis without current pathological fracture Take 1 tablet (70 mg total) by mouth every 7 days. Take in the morning with a full glass of water, on an empty stomach, and do not take anything else by mouth or lie down for the next 30 min. 12 tablet 2 10/30/19 25 Active Active Problems Problem Noted Date Diagnosed Date History of repair of hiatal hernia 02/21/2024 Other dysphagia 08/12/2023 Paraesophageal hernia 08/12/2023 Assessment & Plan (08/12/2023 3:53 PM EDT): This is a 63-year-old woman with an apparent recurrence of her paraesophageal hernia from 2020. There may be partial breakdown of her partial gastric fundoplication but it appears to be intact on endoscopy and my visualization of her recent barium swallow. I have offered the patient a laparoscopic repair of her recurrent paraesophageal hernia and she would like to undergo this procedure. She reports she is feeling relatively well right now and would like to get through the summer prior to scheduling this procedure. The patient will follow back up with me at the end of summer to schedule the laparoscopic repair of her recurrent paraesophageal hernia. I discussed the procedure in detail including risk benefits and alternatives and discussed the postoperative diet of pur ed diet for 2 weeks. She agrees. She will follow-up with me prior to scheduling this procedure to ensure that there are no significant changes to her health. She is scheduled to see the rotary machine operator for her normal ongoing follow-up and will need a cardiac clearance prior to this procedure anyway. Epigastric pain 01/21/2023 Assessment & Plan (01/21/2023 4:35 PM EDT): This is a 62-year-old woman who has a history of undergoing hiatal hernia repair with partial gastric fundoplication for gastroesophageal reflux disease with Dr. Ribeiro from [facility] in 2020. The patient has developed epigastric discomfort and regurgitation of liquids only in the early mornings which resolves later on in the day. She has no reflux. She underwent an endoscopy that shows a possible recurrence of hiatal hernia but fundoplication that is still intact. The patient will schedule the barium swallow so I can get a further look at what the esophagus looks like and also the gastric fundoplication and the possibility of hiatal hernia. Patient will continue current medications and diet as she already is. She currently avoids drinking anything before 11:00 and she could should continue that as she has no regurgitation if she continues to schedule. The patient will also obtain the surgical records from Dr. Ribeiro so that I can evaluate what type of surgery was performed in 2020. Once I have these records and the study for the barium swallow has been completed I will call the patient discuss next steps. I personally reviewed the documentation that was sent over from [facility] including the endoscopy. Bilateral carotid artery stenosis 12/25/2022 Assessment & Plan (11/09/2024 9:13 AM EDT): She really does have minimal internal carotid artery thickening nonetheless I would keep her LDL right where it is at less than 70 mg/dL Assessment & Plan (10/29/2023 9:22 AM EDT): She has tortuous carotid arteries but not a lot in the way of plaque Assessment & Plan (03/29/2023 10:48 AM EST): She has a 60% right carotid stenosis that we will follow twice a year with ultrasound I have put this order in. Assessment & Plan (12/25/2022 4:13 PM EDT): He has bilateral carotid artery stenosis, see note. She is completely asymptomatic. She will meet with Dr. Wesley in 3 months to discuss that. Other osteoporosis without current pathological fracture 03/10/2021 Assessment & Plan (04/27/2024 10:41 AM EST): She continues with calcium vitamin D supplements today she presents for the 6th Prolia injection. She is due for repeat DXA scan at a [facility] facility on 10/17/2024 this has been requested. I did inform her that she must go to the same facility where she went last. She should repeat lab work prior to the follow-up visit in 6 months time. Also lab work fasting 2 weeks prior to the visit in a years time. Assessment & Plan (04/25/2023 3:40 PM EST): The patient is taking calcium but still deficient and I think by 250 mg asked her to add additional tablet which is 250 mg. That should bring her up to maybe 1250 mg of calcium a day combined with her dietary calcium. Her vitamin D will be closer to 3500 units. Today she presents for her fourth Prolia injection. She has been doing quite well in terms of bone mineral density with weight training, additional calcium intake and Prolia administration. She had a tremendous improvement in the femoral neck of 16.6% and in the spine 7.6%. She is no longer in the osteoporotic range in terms of bone mineral density but the diagnosis of course is still considered osteoporosis. Assessment & Plan (10/10/2022 9:43 AM EDT): I am still unclear if the patient is getting adequate calcium in combination with diet and supplements. Vitamin D levels was still elevated and she is going to decrease the vitamin D intake to 2000 units daily. She will send me a message through the patient portal regarding her calcium supplementation. Today, 10/10/2022 she received her third Prolia injection. She is past due for DXA scan. She does not recall exactly where she had the last imaging or which [facility] facility it was done. She believes it was in [place] was not [place]. I will ask my staff to send DXA scan request to [facility]. Addendum: She googled her calcium supplementation she is getting calcium carbonate 650 mg. Assessment & Plan (04/11/2022 8:53 AM EST): The patient is now taking calcium 500 mg a day +441 mg on average through diet. Is still not enough she needs formal calcium at least 1200 mg a day. She is taking vitamin D 5000 units every other day and her vitamin D levels were elevated in the past we will check vitamin D level for the follow-up visit. She is also on Prolia received her first injection on 06/23/2021 but is receiving her second Prolia injection today because she was sick and had to reschedule. I did advise her that really she should try to get these injections within the 2-week window. With starting a new schedule as of today. She should repeat basic metabolic panel prior to the follow-up visit in 6 months time. Assessment & Plan (05/26/2021 10:37 AM EST): This is a patient with osteoporosis and I do recommend treatment with antiresorptive medications. I prefer Prolia over generic alendronate because had to had studies have shown a benefit in terms of bone mineral density there is greater bone mineral density with Prolia. The patient has agreed to use Prolia. Of course she has health [employer] insurance and we do have to get prior authorization. I did inform the patient that she does have to come twice a year to the office. The first visit is going to be a little bit off because she has to get the injection which cannot be done today but eventually will go to coordinate the visit so that she sees the nurse once and she sees me at least once a year. She will not have to do multiple visits for injections plus follow-up visit with me. She does need to get adequate calcium intake because the Prolia takes calcium from the serum into the bones to build bone. So if she does not take adequate calcium intake she is going to develop hypocalcemia which can cause muscle aches tingling numbness etc. This is a concern because the patient does not take enough calcium. Despite 24-hour urine calcium levels being in the normal reference range her calcium intake was only 441 mg so she needs another 760 mg. She does not like to take calcium tablets because it too big but they are available and Gummies and she can get this. She needs to take it in divided doses with food at lunch and dinner. She needs at least 760 mg but I do not know what doses these Gummies come in. So they could be 250 mg she needs to figure it out. Again it is important that she take it with food. Also is important that she take it in divided doses because she cannot absorb more than 800 mg of calcium in 1 sitting. She is getting too much vitamin D she needs to take 10,000 units every other day for 5000 units. Once she completes that maybe she can just get 5000 units vitamin D. Even 5000 units seems to be high but her vitamin D levels were not as high as I would expect at 67 ng/mL on 10,000 units of vitamin D. I do have to do a prior transition for Prolia. I asked the patient to contact our staff in 2 weeks if she has not heard anything. Continue doing that until she finds out if the Prolia has been approved. The patient informs me that she has gastritis so she prefers to use Prolia or oral bisphosphonates which can worsen her problem. In fact the patient informs me that she is due for hiatal hernia repair. I reviewed that Denosumab (Prolia) is a q 6 month subcutaneous injection that has good bone density and fracture data. It s mechanism of action is as a monoclonal antibody directed against RANK ligand. It acts as an antiresorptive agent on the bones by suppressing formation of osteoclasts. It is indicated for osteoporosis in women and men, bony metastases in breast, prostate and other solid tumors, and is approved for aromatase inhibitor bone loss. Potential side effects include injection site pain and swelling (short lived), rash, infection, osteonecrosis of the jaw (5.2 out 10,000 patients) and possibly atypical femur fractures (0.8 out of 10,000). It is necessary to stay current with calcium and Vitamin D intake as hypocalcemia can develop. Labs were reviewed and there is no hypocalcemia. Denosumab ten year data has been presented and shows continued increases in BMD (lumbar spine 21.7% increase in BMD, and hip was 9.2% increase in BMD over 10 years) and continued fracture risk reduction (68% vertebral and hip, 40% non-vertebral, 20% for hip over a three year period) without significant increases in potential side effects. The patient has been instructed to call our office if any symptoms develop or if pain in the thigh develops. Assessment & Plan (03/10/2021 11:03 AM EST): This is a patient with osteoporosis diagnosed on 09/02/2020. She has multiple risk factors for osteoporosis including family history, age, menopause, history of hyperparathyroidism, tobacco use for 30 years, decrease calcium intake and use of proton pump inhibitors. At this point I would like to work-up for secondary etiologies of osteoporosis. Essential familial hypercholesterolemia 02/16/20 Assessment & Plan (11/09/2024 9:14 AM EDT): Her cholesterol is actually really well-controlled Assessment & Plan (03/29/2023 10:47 AM EST): We are working on this I will get her to the guidelines at less than 70 mg/dL LDL Pure hypercholesterolemia 01/10/2021 Assessment & Plan (10/29/2023 9:22 AM EDT): LDL should be less than 70 which it is Assessment & Plan (12/25/2022 4:12 PM EDT): Last office visit, we started her on Crestor. She is doing a lot better on the Crestor. She is tolerating 5 mg once daily. Her lipids are much better, her LDL is now 82. I would like her to increase her rosuvastatin up a little bit to 10 mg once daily. We will recheck a lipid panel in 3 months. She will then follow-up with Dr. Wesley given her new carotid disease findings. Assessment & Plan (09/10/2022 4:07 PM EDT): Her LDL has been elevated. She tells me that she has been on atorvastatin in the past and did not tolerate it due to muscle cramps. She is so far tolerating the Zetia but it is not terribly effective at lowering her lipids. She is willing to try rosuvastatin. I have prescribed a low-dose of rosuvastatin, 5 mg to be taken once daily. We will recheck a lipid panel in 3 months. Given her family history of coronary artery disease, I have suggested that she have a carotid ultrasound. (If she has carotid artery disease, she will more likely be a candidate for Repatha if it comes down to that). Assessment & Plan (02/14/2022 9:04 AM EST): Her most recent lipid panel from September 2021 shows cholesterol 242, LDL 152. LDL goal should be less than 100. She has been intolerant of multiple statins in the past due to muscle cramping. She did try Zetia for 3 months which can provided. Muscle cramping and pain so she discontinued this medication. She is trying to eat better and exercising however her LDL still remains 152. Would like to try her on a PSK 9 2 inhibitor but will need to seek prior Auth from insurance company. I will have the medical staff assistant's wellness and see if we can get her set up on 1 of these medications. We will see her back here in 4 months after she is started this medication. She is strongly encouraged to follow heart healthy diet and to start exercising consistently. Assessment & Plan (01/10/2021 12:20 PM EDT): As mentioned I have ordered her a lipid profile I will see her thereafter in follow-up. Chest pain on breathing 10/31/2020 Assessment & Plan (01/10/2021 12:20 PM EDT): No coronary disease whatsoever on high quality stress testing Assessment & Plan (10/31/2020 12:03 PM EDT): As mentioned given her risk factors it is worth doing an exercise nuclear stress test she does have nonspecific T wave abnormalities on the ECG and a lot of risk factors. Benign essential hypertension 10/31/2020 Overview (11/09/2024): Her blood pressure is perfectly controlled to the guidelines Assessment & Plan (11/09/2024 9:13 AM EDT): Assessment & Plan (10/29/2023 9:21 AM EDT): Perfectly controlled to the guidelines. Assessment & Plan (03/29/2023 10:47 AM EST): Well-controlled to the guidelines. Assessment & Plan (12/25/2022 4:11 PM EDT): Blood pressure in the office today is normal. No medication changes. Assessment & Plan (09/10/2022 4:05 PM EDT): Blood pressure in the office today is adequately controlled. No medication changes. Assessment & Plan (02/14/2022 9:04 AM EST): Blood pressure is well controlled today 110/76. She was encouraged to follow her healthy diet including low sodium. Assessment & Plan (01/10/2021 12:20 PM EDT): Well-controlled at this time. Assessment & Plan (10/31/2020 12:03 PM EDT): Well-controlled Obesity (BMI 30-39.9) 10/31/2020 Assessment & Plan (11/09/2024 9:14 AM EDT): She has lost a few pounds and is trying to exercise more Assessment & Plan (03/29/2023 10:48 AM EST): She is losing weight and exercises on a regular basis. Assessment & Plan (01/10/2021 12:20 PM EDT): She knows well to diet and exercise for this Assessment & Plan (10/31/2020 12:03 PM EDT): I did talk to her about diet and exercise Encounters Date Type Department Care Team Description 12/10/2024 Telephone [facility] [address] [place] [address] [place] [address] Hayley Hernandez, chaser apprentice Problem (Re: Fosamax) 11/09/2024 9:00 AM EDT Office Visit [facility] [address], [address] [place] [address] Leonel Wesley, Benign essential hypertension (Primary Dx); Bilateral carotid artery stenosis; Obesity (BMI 30-39.9); Essential familial hypercholesterolemia 11/09/2024 Telephone [facility] [address] [place] [address] Kiana Neal 10/29/2024 Orders Only [facility] [address] [place] [address] John Hamlin DO Other osteoporosis without current pathological fracture (Primary Dx) 10/28/2024 9:26 AM EDT - 10/28/2024 11:59 PM EDT Hospital Encounter [facility] [address] [place] [address] 3rd [place] [address] Leonel Wesley DO Discharge Disposition: Home or Self Care 10/27/2024 7:53 AM EDT - 10/27/2024 11:59 PM EDT Hospital Encounter [facility] [address] [place] [address] John Hamlin DO Discharge Disposition: Home or Self Care 10/22/2024 Telephone [facility] [address] [place] [address] John Hamlin DO Medication Prior Authorization (Prolia) from Last 3 Months Immunizations Immunization Administration Dates Next Due COVID-19 (Pre-01/21) Pfizer Vaccine, mRNA, PF Influenza Quadrivalent Preservative Free IM 01/30,12/30/2018 Family History Medical History Relation Comments Arthritis Father Heart disease Father Lung cancer Mother Osteoporosis Mother Relation Status Comments Father Alive Mother Social History Tobacco Use Types Packs/Day Years Used Date Smoking Tobacco: Former Cigarettes 2017 Smokeless Tobacco: Former Tobacco Cessation:Counseling Given: Not Answered Alcohol Use Standard Drinks/Week Comments Never 0 [...] Industry 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 Job 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 Not on fi le Not on file Not on file Last Filed Vital Signs Vital Sign Reading Time Taken Comments Blood Pressure 116/68 11/09/2024 8:52 AM EDT Pulse 66 11/09/2024 8:52 AM EDT Temperature 36 C (96.8 F) 06/09/2024 11:00 AM EDT Respiratory Rate 20 01/30/2024 11:30 AM EDT Oxygen Saturation 98% 06/09/2024 11:00 AM EDT Inhaled Oxygen Concentration - - Weight 64 kg (141 lb) 11/09/2024 8:52 AM EDT Height 156.2 cm (5' 1.5 ) 11/09/2024 8:52 AM EDT Body Mass Index 26.21 11/09/2024 8:52 AM EDT Plan of Treatment Upcoming Encounters Date Type Department Care Team (Late st Contact Info) Description 02/17/2025 10:00 AM EST Office Visit [facility] [address] [place] [address] Bhavna Cormier MD [address] [place] [address] [address] [place] [address] [email or web address] 04/29/2025 10:10 AM EST Office Visit [facility] [address] [place] [address] John Hamlin, [address] [address] 11/09/2025 8:45 AM EDT Appointment [facility] [address] [place] [address] Leonel Wesley, [address] [place] [id number] 11/22/2025 9:00 AM EDT Office Visit [facility] [address] [place] [address], [address] [place] [address] Loenel Wesley [address] [place] [phone] Health Maintenance Due Date Last Done Comments DEPRESSION SCREENING 1971 HEPATITIS C SCREENING 06/19/1977 HIV ONE-TIME SCREENING (18-65 YEARS) 06/19/1977 MAMMOGRAM 1999 COLOGUARD 06/19/2004 COLONOSCOPY 06/19/2004 COLORECTAL CANCER SCREENING 06/19/2004 FIT TEST 06/19/2004 FOBT 06/19/2004 SIGMOIDOSCOPY 06/19/2004 VIRTUAL COLONOSCOPY 06/19/2004 LUNG CANCER SCREENING (LDCT Only) 06/19/2009 PNEUMOCOCCAL VACCINES (50+ years) (2 of 2 - PCV) 01/01/2020 12/31/2018 TSH LEVEL 03/13/2022 03/13/2021 INFLUENZA VACCINE (#1) 2024 3, 03/16/2022, 02/12/2020, Additional history exists COVID-19 VACCINE (2024- season) 2024 03/18/2021, 05/23/2020, 05/12/2020, Additional history exists BLOOD PRESSURE 05/12/2025 11/09/2024 SCREENING FOR DIABETES 10/28/2027 10/27/2024 Adult Td,Tdap Booster 09/02/2031 09/01/2021 , 08/07/2011, 12/31/2001 RSV VACCINE (1 - 1-dose 75+ series) 06/19/2034 ZOSTER VACCINES Completed 03/16/2022, 05/27/2021 OSTEOPOROSIS SCREENING INITIAL (ONE-TIME) Completed 10/21/2024, 10/17/2022, 04/11/2022 HEPATITIS A VACCINES Aged Out No long er eligible based on patient's age to complete this topic HIB VACCINES Aged Out No longer eligi ble based on patient's age to complete this topic MENINGOCOCCAL VACCINES (ACWY) Aged Out No longer eligible based on patient's age to complete this topic MENINGOCOCCAL VACCINES (B) Aged Out N o longer eligible based on patient's age to complete this topic Medical Devices Implanted Type [employer] Director Device Identifier Shelf Expiration Date Model / Serial / Lot Mesh Mesh Bladder Pin Pin Bilateral: Toe Procedures Procedure Name Priority Date/Time Associated Diagnosis Comments US CAROTID DUPLEX COMPLETE (BILATERAL) Routine 10/28/2024 10:29 AM EDT Benign essential hypertension RENAL PANEL Routine 10/27/2024 8:04 AM EDT Other osteoporosis without current pathological fracture BD DXA MONITORING Routine 10/21/2024 9:5 0 AM EDT Other osteoporosis without current pathological fracture TSH WITH REFLEX Routine 03/13/2021 8:24 AM EST Other osteoporosis without current pathological fracture from Last 3 Months or Most Recently Relevant to Health Maintenance Results * US Carotid Duplex Complete (Bilateral) (10/28/2024 10:29 AM EDT) Height 156 cm Weight 61 kg Anatomical Region Laterality Modality Heart, Thoracic Vasculature, Neck Ultrasound Narrative 10/29/2024 10:34 AM EDT Right Side: Internal carotid artery stenosis range: 16-49% Vertebral artery is antegrade Subclavian artery is multiphasic. Since previous study no change in velocities. Left Side: Internal carotid artery stenosis range: 16-49% Vertebral artery is antegrade Subclavian artery is multiphasic. Since previous study no change in velocities. Conclusion: No significant carotid artery stenosis is seen. There is some tortuosity in the right distal internal carotid artery. Carotid Artery Right Right Side: Common Carotid Artery CCA Prox: 71/19 cm/sec CCA Dist: 80/24 cm/sec CCA Plaque: minimal Internal Carotid Artery ICA Prox: 61/24 cm/sec ICA Mid: 74/25 cm/sec ICA Distal: 137/49 cm/sec (tortuous) ICA Plaque: mild ICA/CCA Ratio: 1.7 External Carotid Artery: 122 cm/sec Vertebral: 55 cm/sec; antegrade Subclavian: 115 cm/sec; multiphasic Carotid Artery Left Left Side: Common Carotid Artery CCA Prox: 60/17 cm/sec CCA Dist: 65/20 cm/sec CCA Plaque: minimal Internal Carotid Artery ICA Prox: 77/32 cm/sec ICA Mid: 58/22 cm/sec ICA Distal: 114/45 cm/sec ICA Plaque: minimal ICA/CCA Ratio: 1.7 External Carotid Artery: 77 cm/sec Vertebral: 50 cm/sec; antegrade Subclavian: 53 cm/sec; multiphasic Introductory Comments Techniques used for this study included: color flow Doppler and spectral waveform Doppler. us Leonel A Arcoleo DO CV US NEUROVASCULAR Final Res ult * (ABNORMAL) Renal panel (10/27/2024 8:04 AM EDT) SODIUM 141 133 - 146 mmol/L [facility] POTASSIUM 4.4 3.3 - 5.1 mmol/L [facility] CHLORIDE 103 96 - 108 mmol/L [facility] CO2 29 21 - 35 mmol/L [facility] GLUCOSE 109(H) 70 - 99 mg/dL [facility] BUN 10 6 - 19 mg/dL [facility] CREATININE 0.70 0.5 - 1.5 mg/dL [facility] CALCIUM 10.1 8.4 - 10.3 mg/dL [facility] PHOSPHORUS 3.4 2.7 - 4.5 mg/dL [facility] ALBUMIN 4.3 3.9 - 4.8 g/dL [facility] EGFR 96 >59 mL/min/1.7 3m2 [facility] Comment:Estimated glomerular filtration rate calculated using the CKD-EPI refit equation. ANION GAP 13 10 - 20 mmol/L [facility] Blood 10/27/2024 8:04 AM EDT 10/27/2024 8:06 AM EDT us John Hamlin DO LAB BLOOD ORDERABLES Final Resul t Performing Organization Address City/[facility]/ZIP Co de Phone Number [address] [address] * DXA Monitoring (10/21/2024 9:50 AM EDT) Anatomical Region Laterality Modality Bone Density Bone Density John Hamlin DO IMG BD BONE DENSITY DEXA Final R esult * TSH with reflex (03/13/2021 8:24 AM EST) TSH 1.12 0.27 - 4.20 uIU/mL [facility] Blood 03/13/2021 8:24 AM EST 03/13/2021 8:29 AM EST us John Hamlin DO LAB BLOOD ORDERABLES Final Resul t Performing Organization Address City/[facility]/ZIP Co de Phone Number [address] [address] from Last 3 Months or Most Recently Relevant to Health Maintenance Insurance [employer] PPO MEDICARE REPLACEMENT AETNA O MEDICARE REPLACEMENT AETNA O MEDICARE REPLACEMENT AETNA O MEDICARE REPLACEMENT AETNA O MEDICARE REPLACEMENT AETNA [facility] MEDICARE REPLACEMENT Advance Directives For more information, please contact: [phone] (9AM - 5PM Angie/[facility], Saturday-Saturday) Documents on File Type Date Recorded Patient Triage Technician Expl anation Healthcare Proxy 01/30/2024 * Full Code (Latest Code Status on File) Date Activated Date Inactivated Comments 01/30/2024 6:43 AM Question Answer Comments Code Status Confirmed With: Patient Care Teams Head Counselor Relationship Specialty Start Date End Date Bhavna Cormier MD [address] [place] [address], [address] [place], [place] [address] [email or web address] PCP - General Family Medicine 06/03/24 Additional Source Comments The information contained in this document represents components of the legal health record. It is not the complete legal health record.[facility]
--- OUTSIDE RECORDS SUMMARY | 2024-12-12 09:38 | XMS_ITS | Encounter Summary ---
Author Organization [facility] Address [address] [place] [address] [place] [address] Phone Care Team Providers Care Sports Official Name Role Phone Vince Wilcox MD Primary Care Provider + [phone] Vince Wilcox MD Primary Care Provider [phone] Bhavna Cormier MD Primary Care Provider Encounter Details Date Type Department Care Team (Late st Contact Info) Description 02/21/2021 Procedure Pass [facility] Endoscopy Admitting Dept Virtual Department 30 [place] [address] Social History Tobacco Use Types Packs/Day Years Used Date Smoking Tobacco: Former Cigarettes Q uit: 2018 Smokeless Tobacco: Former Alcohol Use Standard Drinks/Week Comments Not Currently 0 (1 standard drink = 0.6 oz pur e alcohol) Comments No Sex and Gender Information Value Date Recorded Sex Assigned at Female 01/24/2021 10:32 AM EDT Legal Sex Female 8:15 AM EDT Gender Identity Female 01/24/2021 10:32 AM EDT Sexual Orientation Straight 01/24/2021 10 :32 AM EDT documented as of this encounter Plan of Treatment Upcoming Encounters Date Type Department Care Team (Late Contact Info) Description 02/17/2025 10:00 AM EST Office Visit [facility] [address] [place] [address] Bhavna Cormier MD 234 [facility], [address] [place] [address] [email or web address] 04/29/2025 10:10 AM EST Office Visit [facility] 22 [place] [address] John Hamlin [address] [address] [email or web address] 11/09/2025 8:45 AM EDT Appointment [facility] [address] [place] [address] 3[address] [place] [address] Leonel Wesley, [address] [place] [address] [email or web address] 11/22/2025 9:00 AM EDT Office Visit [facility] [address] [place] [address], [address] [place] [address] Leonel Wesley, [address] [address] [email or web address] documented as of this encounter Visit Diagnoses Not on filedocumented in this encounter Care Teams Sports Official Relationship Specialty Start Date End Date Vince Wilcox MD PCP - General Internal Medicine 09/13/20 02/04/24 Vince Wilcox MD [address] [place] [address] PCP - General Internal Medicine 02/05/24 06/02/24 Bhavna Cormier MD [address] [place] [address], [address] [place] [address] [email or web address] PCP - General Family Medicine 06/03/24 documented as of this encounter Additional Source Comments The information contained in this document represents components of the legal health record. It is not the complete legal health record.[facility]
--- OUTSIDE RECORDS SUMMARY | 2024-12-12 09:38 | XMS_ITS | Encounter Summary ---
Author Organization [facility] Address [address] [place] [address] Phone Care Team Providers Care Interactive Multimedia Designer Name Role Phone Vince Wilcox MD Primary Care Provider + [phone] Vince Wilcox MD Primary Care Provider [phone] Bhavna Cormier MD Primary Care Provider [phone] Encounter Details Date Type Department Care Team (Late st Contact Info) Description 05/07/2023 Telephone [facility] Main Endoscopy [address] [place] [address] Swati Lucas RN 30 [place] [address] [email or web address] Social History Tobacco Use Types Packs/Day Years [...] 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 Not on file Not on file documented as of this encounter Plan of Treatment Upcoming Encounters Date Type Department Care Team (Late st Contact Info) Description 02/17/2025 10:00 AM EST Office Visit [facility] 234 [place] [address] Bhavna Cormier MD [address] [address] [email or web address] 04/29/2025 10:10 AM EST Office Visit [facility] [address] [place] [address] [place] [address] John Hamlin [address] [address] 11/09/2025 8:45 AM EDT Appointment [facility] [address] [place] [address] Leonel Wesley, [address] [address] 11/22/2025 9:00 AM EDT Office Visit [facility] [address] [place] [address], [address] [place] [address] Leonel Wesley [address] [address] documented as of this encounter Visit Diagnoses Not on filedocumented in this encounter Care Teams Interactive Multimedia Designer Relationship Specialty Start Date End Date Vince Wilcox MD PCP - General Internal Medicine 09/13/20 02/04/24 Vince Wilcox MD [address] [address] PCP - General Internal Medicine 02/05/24 06/02/24 Bhavna Cormier MD [address] [place] [address] 7 [place] [address] [email or web address] PCP - General Family Medicine 06/03/24 documented as of this encounter Additional Source Comments The information contained in this document represents components of the legal health record. It is not the complete legal health record.[facility]
--- OUTSIDE RECORDS SUMMARY | 2024-12-12 09:38 | XMS_ITS | Encounter Summary ---
Author Organization [facility] Address [address] [place] [address] [place] [address] Phone Care Team Providers Care Data Warehouse Developer Name Role Phone Vince Wilcox MD Primary Care Provider + [phone] Vince Wilcox MD Primary Care Provider [phone] Bhavna Cormier MD Primary Care Provider Encounter Details Date Type Department Care Team (Late st Contact Info) Description 01/24/2021 Procedure Pass [facility] Endoscopy Admitting Dept Virtual Department 30 [place], [place] [id number] Social History Tobacco Use Types Packs/Day Years [...] Description 02/17/2025 10:00 AM EST Office Visit [facility] 234 [place], [place] [phone] Bhavna Cormier MD 234 [facility], [address] [place] [address] [email or web address] 04/29/2025 10:10 AM EST Office Visit [facility] 22 [place] [address] John Hamlin [address] [address] [email or web address] 11/09/2025 8:45 AM EDT Appointment [facility] [place] [address] [place] [address] [address] [place] [address] Leonel Wesley, [address] [place] [address] [email or web address] 11/22/2025 9:00 AM EDT Office Visit [facility] [address] [place] [address], [address] [place] [address] Leonel Wesley, [address] [address] [email or web address] documented as of this encounter Visit Diagnoses Not on filedocumented in this encounter Care Teams Data Warehouse Developer Relationship Specialty Start Date End Date Vince Wilcox MD PCP - General Internal Medicine 09/13/20 02/04/24 Vince Wilcox MD [address] [place] [address] PCP - General Internal Medicine 02/05/24 06/02/24 Bhavna Cormier MD [address] [place] [address], [address] [place] [address] [email or web address] PCP - General Family Medicine 06/03/24 documented as of this encounter Additional Source Comments The information contained in this document represents components of the legal health record. It is not the complete legal health record.[facility]
[2024-12-12 11:01] LABS: Hematocrit 34.6 % (37.0-47.0); Hemoglobin 11.6 g/dl (12.0-16.0); Mean Corpuscular HGB Conc 33.5 g/dl (31.0-35.0); Mean Corpuscular Hemoglobin 28.4 pg (27.0-33.0); Mean Corpuscular Volume 84.6 fL (80.0-98.0); NRBC Abs Auto 0.000 X10*3/uL (0.0-0.012); NRBC Pct Auto 0.0 /100WBC (0.0-0.2); Platelet Count 196 X10*3/uL (160-400); Red Blood Count 4.09 X10*6/uL (4.20-5.50); White Blood Count 6.8 X10*3/uL (4.8-10.8)
[2024-12-12 11:03] LABS: Hemoglobin A1C 114.5474 umol/L; Total Hemoglobin (HGBA1C) 3046.2536 umol/L
[2024-12-12 11:18] LABS: Atypical Lymph Absolute Manual 0.5 x10*3/uL; Atypical Lymphs Percent Manual 7 % (0-6); Band Neutrophils Percent 2 % (3-5); Basophils Abs Manual 0.1 X10*3/uL (0.0-0.2); Basophils Percent Manual 1 % (0-2); Eosinophils Absolute Manual 0.1 X10*3/uL (0.0-0.4); Eosinophils Percent Manual 2 % (0-4); Lymphocytes Absolute Manual 1.6 X10*3/uL (1.2-4.9); Lymphocytes Percent Manual 23 % (20-40); Monocytes Absolute Manual 0.5 X10*3/uL (0.1-1.2); Monocytes Percent Manual 7 % (2-11); Neutrophils Absolute Manual 4.1 X10*3/uL (2.0-8.3); Neutrophils Percent Manual 58 % (45-73); RBC Morphology NORMAL
[2024-12-12 12:06] LABS: Cholesterol 146 mg/dL (<200); HDL Cholesterol 48 mg/dL (>40); Triglycerides 126 mg/dL (<150)
[2024-12-12 12:28] LABS: Free T4 (Free Thyroxine) 1.04 ng/dL (0.71-1.85)
[2024-12-12 12:31] LABS: Folate 6.9 ng/mL (> or = 4.0); Vitamin B12 796 pg/mL (200-900)
[2024-12-14 21:33] LABS: Lyme Abs Screen <0.90 index
== END 2024-12-12 09:34 | disposition home or self-care (01) ==
LOC: HO.LAB 09:33
DX: E11.65 Type 2 diabetes mellitus with hyperglycemia (principal); M81.0 Age-related osteoporosis without current pathological fracture; G43.909 Migraine, unspecified, not intractable, without status migrainosus; E78.00 Pure hypercholesterolemia, unspecified; I77.9 Disorder of arteries and arterioles, unspecified; E89.0 Postprocedural hypothyroidism; Z13.21 Encounter for screening for nutritional disorder; Z01.84 Encounter for antibody response examination
CPT/HCPCS: 36415; 80061; 82306; 82607; 82746; 83036; 84439; 84443; 85007; 85025; 85027; 86617; 86618

== ENCOUNTER 2024-12-14 08:23 | Outpatient (AMB) | payer OTHER, SELFPAY ==
[2024-12-14 08:31] VITALS: BP 108/68; PULSE 81; RESP 16; TEMP 36.4; O2SAT 95; BMI 24.7
--- NOTE | 2024-12-14 08:31 | MHC.OFFWIV ---
Intake Vital Signs 12/14/24 08:31 Height 5 ft 2.6 in Weight 137 lb 8 oz BMI 24.7 BP 108/68 Blood Pressure Location Lt brachial Position Sitting Respiration 16 Pulse 81 Pulse Source Pulse Oximeter Temp 97.5 F Temp Source Oral Pulse Oximetry (%) 95 Oxygen Delivery Method Room Air Intake Visit Reasons: EP Sweats, headaches, joint pain Patient Tobacco Use Status: Former Tobacco user Health Information Systems Technician Required: No Accompanied by: Self / Same As Patient Allergies statin Adverse Reaction (Mild, Uncoded 11/11/24 08:22) Muscle Cramps HPI HPI Comments History of Present Illness Details 64 y/o Female patient who presents to the walk in clinic with c/o URI symptoms. She reports Joint pains, Body aches, Headaches, Nausea, chills and abdominal cramping. Reports that symptoms started 2 weeks. She has been taking Pain medication with no relief.Denies Fevers or vomiting. Denies Diarrhea, but she does have chronic Constipation. 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 Current occupational exposures/hazards: No Cognitive needs: No Hearing needs: No Vision needs: Yes Review of Systems Const All systems reviewed & are unremarkable except as noted in HPI and below Physical Exam Vital Signs: Last Vital Signs Temp 97.5 F 12/14/24 08:31 Pulse 81 12/14/24 08:31 Resp 16 12/14/24 08:31 BP 108/68 12/14/24 08:31 Pulse Ox 95 12/14/24 08:31 Oxygen Delivery Method Room Air 12/14/24 08:31 BMI result Body Mass Index 24.7 Const General: no acute distress Nutritional Appearance: well nourished Orientation/consciousness: patient oriented x3 HEENT Head: Yes normocephalic Ears: external ears normal and TM's normal bilaterally General nose exam: No nasal discharge present Face and sinus: Yes sinuses nontender Mouth: moist mucous membranes Throat: Yes uvula midline Resp Effort & Inspection: normal respiratory effort Auscultation: clear to auscultation bilaterally, no crackles, no rales, no rhonchi and no wheezes Cardio Heart sounds: S1 normal heart sound present and S2 normal heart sound present Neuro General: patient oriented x3 Assessment & Plan Assessment & Plan (1) Acute respiratory disease: Code(s): J06.9 - Acute upper respiratory infection, unspecified Plan: Possibly viral vs Bacterial. Rest and hydrate well Acetaminophen for pain relief. Ordered SARs. If no improvement go to ED. Orders: Orders SARS-CoV2/FLU/RSV Today J06.9 - Acute upper respiratory infection, unspecified Coding Level of Care Code Est Pt Level 4 (12003) Diagnoses Acute respiratory disease J06.9 Time Spent (min) 20
--- OUTSIDE RECORDS SUMMARY | 2024-12-14 09:26 | XMS_ITS | Encounter Summary ---
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 7 [place] [address] [email or web address] 04/29/2025 10:10 AM EST Office Visit [facility] [address] [place] [address] John Hamlin [address] [address] 11/09/2025 8:45 AM EDT Appointment [facility] [address] [address] Leonel Wesley, [address] [address] 11/22/2025 9:00 AM EDT Office Visit [facility] [address] [place] [address], [address] [place] [address] Leonel Wesley, [address] [address] documented as of this encounter Visit Diagnoses Not on filedocumented in this encounter Care Teams Intermodal Customer Service Relationship Specialty Start Date End Date Vince Wilcox MD PCP - General Internal Medicine 09/13/20 02/04/24 Vince Wilcox MD [address] [address] PCP - General Internal Medicine 02/05/24 06/02/24 Bhavna Cormier MD [address] [place] [address] 7 [place] [address] [email or web address] PCP - General Family Medicine 06/03/24 documented as of this encounter Additional Source Comments The information contained in this document represents components of the legal health record. It is not the complete legal health record.[facility]
--- OUTSIDE RECORDS SUMMARY | 2024-12-14 09:26 | XMS_ITS | Encounter Summary ---
Author Organization [facility] Address [address] [place] [address] Phone Care Team Providers Care Science Editor Name Role Phone Vince Wilcox MD Primary Care Provider + [phone] Vince Wilcox MD Primary Care Provider [phone] Bhavna Cormier MD Primary Care Provider Encounter Details Date Type Department Care Team (Latest Contact Info) Description 09/14/2020 Transcribe Orders Virtual Department 30 [place] [address] Dodie Norman NP [address] [place] [address] Dysphagia, pharyngoesophageal phase (Primary Dx) Social History [...] Description 02/17/2025 10:00 AM EST Office Visit [facility] 234 [place], [place] [phone] Bhavna Cormier MD 234 [facility], [address] [place] [address] [email or web address] 04/29/2025 10:10 AM EST Office Visit [facility] [address] [place] [address] [place] [address] John Hamlin, [address] [address] 11/09/2025 8:45 AM EDT Appointment [facility] [address] [place] [address] Leonel Wesley, [address] [place] [address] 11/22/2025 9:00 AM EDT Office Visit [facility] [address] [place] [address] [address] [facility], [address] [place] [address] Leonel Wesley, [address] [place] [address] [email or web address] documented as of this encounter Visit Diagnoses Diagnosis Dysphagia, pharyngoesophageal phase- Primary documented in this encounter Care Teams Science Editor Relationship Specialty Start Date End Date Vince Wilcox MD PCP - General Internal Medicine 09/13/20 02/04/[address] [facility] [address] PCP - General Internal Medicine 02/05/24 06/02/24 Bhavna Cormier MD 234 [facility], [address] [place] [address] [email or web address] PCP - General Family Medicine 06/03/24 documented as of this encounter Additional Source Comments The information contained in this document represents components of the legal health record. It is not the complete legal health record.[facility]
--- OUTSIDE RECORDS SUMMARY | 2024-12-14 09:26 | XMS_ITS | Encounter Summary ---
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 on file Not on file documented as of this encounter Plan of Treatment Upcoming Encounters Date Type Department Care Team (Late st Contact Info) Description 02/17/2025 10:00 AM EST Office Visit [facility] [address] [place] [address] Bhavna Cormier MD 234 [facility] 7 [place] [address] [email or web address] 04/29/2025 10:10 AM EST Office Visit [facility] 22 [place] [address] John Hamlin [address] [address] 11/09/2025 8:45 AM EDT Appointment [facility] [place] [address] Leonel Wesley, [address] [address] 11/22/2025 9:00 AM EDT Office Visit [facility] [address] [place] [address], [address] [place] [address] Leonel Wesley, [address] [address] documented as of this encounter Visit Diagnoses Not on filedocumented in this encounter Care Teams Body Repairer Relationship Specialty Start Date End Date Vince Wilcox MD PCP - General Internal Medicine 09/13/20 02/04/24 Vince Wilcox MD [address], [place] [address] PCP - General Internal Medicine 02/05/24 06/02/24 hBavna Cormier MD [address] [place] [address] 7 [place] [address] [email or web address] PCP - General Family Medicine 06/03/24 documented as of this encounter Additional Source Comments The information contained in this document represents components of the legal health record. It is not the complete legal health record.[facility]
--- OUTSIDE RECORDS SUMMARY | 2024-12-14 09:26 | XMS_ITS | Clinical Summary ---
Author Organization [facility] Address [address] [place] [address] Phone Care Team Providers Care Manager Inventory Name Role Phone Bhavna Cormier MD Primary Care Provider Allergies Active Allergy Reactions Criticality Noted Date [...] health. She is scheduled to see the senior marketing data analyst for her normal ongoing follow-up and will need a cardiac clearance prior to this procedure anyway. Epigastric pain 01/21/2023 Assessment & Plan (01/21/2023 4:35 PM EDT): This is a 62-year-old woman who has a history of undergoing hiatal hernia repair with partial gastric fundoplication for gastroesophageal reflux disease with Dr. Ribeiro from [facility] in 2020. The patient has developed [...] the documentation that was sent over from [facility] including the endoscopy. Bilateral carotid artery [...] due for repeat DXA scan at a [facility] facility on 10/17/2024 this has been [...] she had the last imaging or which [facility] facility it was done. She believes it was in [place] was not [place]. I will ask my staff to send DXA scan request to [facility]. Addendum: She googled her calcium supplementation she [...] use Prolia. Of course she has health [place] insurance and we do have to get [...] insurance company. I will have the medical billing and coding specialist's wellness and see if we can get [...] Care Team Description 12/10/2024 Telephone [facility] [address] [place] [address] [place] [address] Hayley Hernandez, celery stripper Problem (Re: Fosamax) 11/09/2024 9:00 AM EDT Office Visit [facility] [address], [address] [place] [address] Leonel Wesley, Benign essential hypertension (Primary Dx); Bilateral carotid artery stenosis; Obesity (BMI 30-39.9); Essential familial hypercholesterolemia 11/09/2024 Telephone [facility] [address] [place] [address] Kiana Neal 10/29/2024 Orders Only [facility] [address] [place] [address] John Hamlin DO Other osteoporosis without current pathological fracture (Primary Dx) 10/28/2024 9:26 AM EDT - 10/28/2024 11:59 PM EDT Hospital Encounter [facility] [address] [place] [address] 3rd [place] [address] Leonel Wesley DO Discharge Disposition: Home or Self Care 10/27/2024 7:53 AM EDT - 10/27/2024 11:59 PM EDT Hospital Encounter [facility] [address] [place] [address] John Hamlin DO Discharge Disposition: Home or Self Care 10/22/2024 Telephone [facility] [address] [place] [address] John Hamlin DO Medication Prior Authorization (Prolia) [...] 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 [...] Description 02/17/2025 10:00 AM EST Office Visit [facility] [address] [place] [address] Bhavna Cormier MD [address] [place] [address] 7 [place] [address] [email or web address] 04/29/2025 10:10 AM EST Office Visit [facility] [address] [place] [address] John Hamlin, [address] [address] 11/09/2025 8:45 AM EDT Appointment [facility] [place] [address] [place] [address] Leonel Wesley, [address] [place] [address] 11/22/2025 9:00 AM EDT Office Visit [facility] [address] [place] [address], [address] [place] [address] Leonel Wesley [address] [place] [address] Health Maintenance Due Date Last Done Comments [...] this topic Medical Devices Implanted Type Area Venereal Disease Control Head Device Identifier Shelf Expiration Date Model / [...] EDT) SODIUM 141 133 - 146 mmol/L [facility] POTASSIUM 4.4 3.3 - 5.1 mmol/L [facility] CHLORIDE 103 96 - 108 mmol/L [facility] CO2 29 21 - 35 mmol/L [facility] GLUCOSE 109(H) 70 - 99 mg/dL [facility] BUN 10 6 - 19 mg/dL [facility] CREATININE 0.70 0.5 - 1.5 mg/dL [facility] CALCIUM 10.1 8.4 - 10.3 mg/dL [facility] PHOSPHORUS 3.4 2.7 - 4.5 mg/dL [facility] ALBUMIN 4.3 3.9 - 4.8 g/dL [facility] EGFR 96 >59 mL/min/1.7 3m2 [facility] Comment:Estimated glomerular filtration rate calculated using the CKD-EPI refit equation. ANION GAP 13 10 - 20 mmol/L [facility] Blood 10/27/2024 8:04 AM EDT 10/27/2024 8:06 AM EDT us John Hamlin DO LAB BLOOD ORDERABLES Final Resul t Performing Organization Address City/[facility]/ZIP Co de Phone Number [address] [address] * DXA Monitoring (10/21/2024 9:50 AM EDT) Anatomical Region Laterality Modality Bone Density Bone Density John Hamlin DO IMG BD BONE DENSITY DEXA Final R esult * TSH with reflex (03/13/2021 8:24 AM EST) TSH 1.12 0.27 - 4.20 uIU/mL [facility] Blood 03/13/2021 8:24 AM EST 03/13/2021 8:29 AM EST us John Hamlin DO LAB BLOOD ORDERABLES Final Resul t Performing Organization Address City/[facility]/ZIP Co de Phone Number [address] [address] from Last 3 Months or Most Recently Relevant to Health Maintenance Insurance A[employer] PPO MEDICARE REPLACEMENT AETNA O MEDICARE REPLACEMENT AETNA O MEDICARE REPLACEMENT AETNA O MEDICARE REPLACEMENT AETNA O MEDICARE REPLACEMENT AETNA [facility] MEDICARE REPLACEMENT Advance Directives For more information, please contact: [phone] (9AM - 5PM Angie/[facility], Saturday-Saturday) Documents on File Type Date Recorded Patient Radiology Receptionist Expl anation Healthcare Proxy 01/30/2024 * Full Code (Latest Code Status on File) Date Activated Date Inactivated Comments 01/30/2024 6:43 AM Question Answer Comments Code Status Confirmed With: Patient Care Teams Manager Inventory Relationship Specialty Start Date End Date Bhavna Cormier MD [address] [place] [address], [address] [place], [place] [id number] [email or web address] PCP - General Family Medicine 06/03/24 Additional Source Comments The information contained in this document represents components of the legal health record. It is not the complete legal health record.[facility]
--- OUTSIDE RECORDS SUMMARY | 2024-12-14 09:26 | XMS_ITS | Encounter Summary ---
Author Organization [facility] Address [address] [place] [address] [place] [address] Phone Care Team Providers Care Arts Administrator Or Manager Name Role Phone Vince Wilcox MD Primary Care Provider + [phone] Vince Wilcox MD Primary Care Provider [phone] Bhavna Cormier MD Primary Care Provider Encounter Details Date Type Department Care Team (Late st Contact Info) Description 01/24/2021 Procedure Pass [facility] Endoscopy Admitting Dept Virtual Department 30 [place], [place] [id number] Social History Tobacco Use Types Packs/Day Years [...] Description 02/17/2025 10:00 AM EST Office Visit [facility] 234 [place], [place] [phone] Bhavna Cormier MD 234 [facility], [address] [place] [address] [email or web address] 04/29/2025 10:10 AM EST Office Visit [facility] 22 [place] [address] [address] Ham[address] [address] [email or web address] 11/09/2025 8:45 AM EDT Appointment [facility] [place] [address] [place] [address] 3rd [place] [address] Leonel Wesley, [address] [place] [address] [email or web address] 11/22/2025 9:00 AM EDT Office Visit [facility] [address] [place] [address], [address] [place] [address] Leonel Wesley, [address] [address] [email or web address] documented as of this encounter Visit Diagnoses Not on filedocumented in this encounter Care Teams Arts Administrator Or Manager Relationship Specialty Start Date End Date Vince Wilcox MD PCP - General Internal Medicine 09/13/20 02/04/24 Vince Wilcox MD [address] [place] [address] PCP - General Internal Medicine 02/05/24 06/02/24 Bhavna Cormier MD [address] [place] [address], [address] [place] [address] [email or web address] PCP - General Family Medicine 06/03/24 documented as of this encounter Additional Source Comments The information contained in this document represents components of the legal health record. It is not the complete legal health record.[facility]
--- OUTSIDE RECORDS SUMMARY | 2024-12-14 09:26 | XMS_ITS | Encounter Summary ---
Author Organization [facility] Address [address] [place] [address] Phone Care Team Providers Care Upholsterer Outside Name Role Phone Vince Wilcox MD Primary Care Provider [phone] Vince Wilcox MD Primary Care Provider [phone] Bhavna Cormier MD Primary Care Provider [phone] Reason for Referral * MRI/CAT Scan - Closed Specialty Diagnoses / Procedures Referred By Michael wilson Referred To Contact Radiology Diagnoses Dilated bile duct Procedures MRI Cholangiopancreatography (MRCP) CHG MRI, ABDOMEN, COMBO Arleth Redd PA 10 [place] [address] Phone: tel: fax: Referral ID Status Reason Start Date Expiration Date Visits Re quested Visits Authorized [id number] Closed 06/17/2023 08/16/2023 1 1 Encounter Details Date Type Department Care Team (Latest Contact Info) Description 06/27/2023 Transcribe Orders Virtual Department 30 [place] [address] Arleth Redd PA [address] [place], [place] [id number] Dilated bile duct (Primary Dx) Social History [...] Industry 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 fi le Not on file Not on file documented as of this encounter Plan of Treatment Upcoming Encounters Date Type Department Care Team (Late st Contact Info) Description 02/17/2025 10:00 AM EST Office Visit [facility] [address] [place] [address] Bhavna Cormier MD 234 [facility] 7 [place] [address] [email or web address] 04/29/2025 10:10 AM EST Office Visit [facility] [address] [place] [address] John Hamlin, 22 [place] [address] 11/09/2025 8:45 AM EDT Appointment [facility] [place] [address] [place] [address] 3rd [place] [address] Leonel Wesley, [address] [facility] [address] [place] [address] [email or web address] 11/22/2025 9:00 AM EDT Office Visit [facility] [address] [facility] 3rd Floor, [address] [place] [address] Leonel Wesley, [address] [facility] [address] [place] [address] [email or web address] documented as of this encounter Results * [...] duct documented in this encounter Care Teams Upholsterer Outside Relationship Specialty Start Date End Date Vince Wilcox MD PCP - General Internal Medicine 09/13/20 02/04/24 Vince Wilcox MD [address] [place] [address] PCP - General Internal Medicine 02/05/24 06/02/24 Bhavna Cormier MD [address] [place] [address], [address] [place] [address] [email or web address] PCP - General Family Medicine 06/03/24 documented as of this encounter Additional Source Comments The information contained in this document represents components of the legal health record. It is not the complete legal health record.[facility]
--- OUTSIDE RECORDS SUMMARY | 2024-12-14 09:26 | XMS_ITS | Encounter Summary ---
Author Organization [facility] Address [address] [place] [address] Phone Care Team Providers Care Excel Expert Name Role Phone Vince Wilcox MD Primary Care Provider [phone] Vince Wilcox MD Primary Care Provider [phone] Bhavna Cormier MD Primary Care Provider Encounter Details Date Type Department Care Team (Late st Contact Info) Description 10/07/2020 Ancillary Orders Virtual Department 30 [place] [address] Dodie Norman NP 10 [place] [address] Dysphagia, unspecified type Social History Tobacco Use [...] Description 02/17/2025 10:00 AM EST Office Visit [facility] 234 [place] [address] Bhavna Cormier MD [address] [place] [address], [address] [place] [address] [email or web address] 04/29/2025 10:10 AM EST Office Visit [facility] [address] [place] [address] [place] [address] [address] Hamlin [address] [address] 11/09/2025 8:45 AM EDT Appointment [facility] [address] [place] [address] Leonel Wesley, [address] [place] [address] 11/22/2025 9:00 AM EDT Office Visit [facility] [address] [place] [address], [address] [place] [address] Leonel Wesley [address] [place] [address] documented as of this encounter Results * [...] type documented in this encounter Care Teams Excel Expert Relationship Specialty Start Date End Date Vince Wilcox MD PCP - General Internal Medicine 09/13/20 02/04/24 Vince Wilcox MD [address] [place] [address] PCP - General Internal Medicine 02/05/24 06/02/24 Bhavna Cormier MD [address] [place] [address] 7 [place] [address] [email or web address] PCP - General Family Medicine 06/03/24 documented as of this encounter Additional Source Comments The information contained in this document represents components of the legal health record. It is not the complete legal health record.[facility]
--- OUTSIDE RECORDS SUMMARY | 2024-12-14 09:26 | XMS_ITS | Encounter Summary ---
Author Organization [facility] Address [address] [place] [address] [place] [address] Phone Care Team Providers Care Phlebotomy Manager Name Role Phone Vince Wilcox MD Primary Care Provider + [phone] Vince Wilcox MD Primary Care Provider [phone] Bhavna Cormier MD Primary Care Provider [phone] Encounter Details Date Type Department Care Team (Late st Contact Info) Description 12/30/2020 Procedure Pass [facility] Endoscopy Admitting Dept Virtual Department 30 [place], [place] [phone] Social History Tobacco Use Types Packs/Day Years [...] Description 02/17/2025 10:00 AM EST Office Visit [facility] 234 [place], [place] [phone] Bhavna Cormier MD 234 [facility], [address] [place] [address] [email or web address] 04/29/2025 10:10 AM EST Office Visit [facility] 22 [place] [address] John Hamlin [address] [address] [email or web address] 11/09/2025 8:45 AM EDT Appointment [facility] [place] [address] [place] [address] 3[address] [place] [address] Leonel Wesley, [address] [place] [address] [email or web address] 11/22/2025 9:00 AM EDT Office Visit [facility] [address] [place] [address], [address] [place] [address] Leoenl Wesley, [address] [address] [email or web address] documented as of this encounter Visit Diagnoses Not on filedocumented in this encounter Care Teams Phlebotomy Manager Relationship Specialty Start Date End Date Vince Wilcox MD PCP - General Internal Medicine 09/13/20 02/04/24 Vince Wilcox MD [address] [place] [address] PCP - General Internal Medicine 02/05/24 06/02/24 Bhavna Cormier MD [address] [place] [address], [address] [place] [address] [email or web address] PCP - General Family Medicine 06/03/24 documented as of this encounter Additional Source Comments The information contained in this document represents components of the legal health record. It is not the complete legal health record.[facility]
--- OUTSIDE RECORDS SUMMARY | 2024-12-14 09:26 | XMS_ITS | Encounter Summary ---
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 Please contact and advise. Central Support Automotive Service Writer (Please do not reply to this user; this inbox is not monitored.) Thank you. documented in this encounter Plan of Treatment Upcoming Encounters Date Type Department Care Team (Late st Contact Info) Description 02/17/2025 10:00 AM EST Office Visit [facility] [address] [place] [address] Bhavna Cormier MD 234 [facility], [address] [place] [address] [email or web address] 04/29/2025 10:10 AM EST Office Visit [facility] [address] [place] [address] John Hamlin DO 22 [place] [address] 11/09/2025 8:45 AM EDT Appointment [facility] [address] 3rd [place] [address] Leonel Wesley, DO 22 [facility] [address] [place] [address] [email or web address] 11/22/2025 9:00 AM EDT Office Visit [facility] [address] Floor, [address] [place] [address] Leonel Wesley, DO 22 [facility] [address] [place] [address] [email or web address] documented as of this encounter Visit Diagnoses Not on filedocumented in this encounter Care Teams Mandarin Chinese Teacher Relationship Specialty Start Date End Date Bhavna Cormier MD [address] [place] [address] 7 [place] [address] [email or web address] PCP - General Family Medicine 06/03/24 documented as of this encounter Additional Source Comments The information contained in this document represents components of the legal health record. It is not the complete legal health record.[facility]
--- OUTSIDE RECORDS SUMMARY | 2024-12-14 09:26 | XMS_ITS | Encounter Summary ---
Author Organization [facility] Address [facility] [employer] [facility] [address] [place] [address] Phone Care Team Providers Care Pneumatic Tube Operator Name Role Phone Vince Wilcox MD Primary Care Provider [phone] Vince Wilcox MD Primary Care Provider [phone] Bhavna Cormier MD Primary Care Provider [phone] Encounter Details Date Type Department Care Team (Late st Contact Info) Description 10/31/2020 Procedure Pass [facility] [address] [place] [address] Social History Tobacco Use Types Packs/Day Years [...] Description 02/17/2025 10:00 AM EST Office Visit [facility] [address] [place] [address] Bhavna Cormier MD 234 [facility], [address] [place], [place] [address] [email or web address] 04/29/2025 10:10 AM EST Office Visit [facility] [address] [place] [address] John Hamlin, [address] [address] 11/09/2025 8:45 AM EDT Appointment [facility] [place] [address] [place] [address] Leonel Wesley, DO [address] [place] [address] [place] [address] 11/22/2025 9:00 AM EDT Office Visit [facility] [address], [address] [place] [address] Leonel Wesley [address] [place] [address] [email or web address] documented as of this encounter Visit Diagnoses Not on filedocumented in this encounter Care Teams Pneumatic Tube Operator Relationship Specialty Start Date End Date Vince Wilcox MD PCP - General Internal Medicine 09/13/20 02/04/24 Vince Wilcox MD [facility] [address] PCP - General Internal Medicine 02/05/24 06/02/24 Bhavna Cormier MD 234 [facility] 7 [place] [address] [email or web address] PCP - General Family Medicine 06/03/24 documented as of this encounter Additional Source Comments The information contained in this document represents components of the legal health record. It is not the complete legal health record.[facility]
--- OUTSIDE RECORDS SUMMARY | 2024-12-14 09:27 | XMS_ITS | Encounter Summary ---
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 on file Not on file documented as of this encounter Plan of Treatment Upcoming Encounters Date Type Department Care Team ([facility] st Contact Info) Description 02/17/2025 10:00 AM EST Office Visit [facility] 234 [place] [address] Bhavna Cormier MD 234 [facility] 7 [place] [address] [email or web address] 04/29/2025 10:10 AM EST Office Visit [facility] [address] [place] [address] John Hamlin [address] [address] 11/09/2025 8:45 AM EDT Appointment [facility] [place] [place] [address] Leonel Wesley, [address] [place] [address] 11/22/2025 9:00 AM EDT Office Visit [facility] [address] [place] [address] [place] [address], [address] [place] [address] Leonel Wesley, [address] [address] documented as of this encounter Visit Diagnoses Not on filedocumented in this encounter Care Teams Fur Storage Clerk Relationship Specialty Start Date End Date Vince Wilcox MD PCP - General Internal Medicine 09/13/20 02/04/24 Vince Wilcox MD [address], [place] [address] PCP - General Internal Medicine 02/05/24 06/02/24 Bhavna Cormier MD [address] [place] [address] 7 [place] [address] [email or web address] PCP - General Family Medicine 06/03/24 documented as of this encounter Additional Source Comments The information contained in this document represents components of the legal health record. It is not the complete legal health record.[facility]
--- OUTSIDE RECORDS SUMMARY | 2024-12-14 09:27 | XMS_ITS | Encounter Summary ---
Author Organization [facility] Address [address] [place] [address] [place] [address] Phone Care Team Providers Care Print Line Operator Name Role Phone Vince Wilcox MD Primary Care Provider + -[phone] Vince Wilcox MD Primary Care Provider [phone] Bhavna Cormier MD Primary Care Provider Encounter Details Date Type Department Care Team (Late st Contact Info) Description 02/21/2021 Procedure Pass [facility] Endoscopy Admitting Dept Virtual Department 30 [place], [place] [phone] Social History Tobacco Use Types Packs/Day Years [...] Description 02/17/2025 10:00 AM EST Office Visit [facility] 234 [place] [address] Bhavna Cormier MD 234 [facility], [address] [place] [address] [email or web address] [email or web address] 04/29/2025 10:10 AM EST Office Visit [facility] 22 [place] [address] John Hamlin [address] [address] [email or web address] 11/09/2025 8:45 AM EDT Appointment [facility] [address] [place] [address] 3rd [place] [address] Leonel Wesley, [address] [place] [address] [email or web address] 11/22/2025 9:00 AM EDT Office Visit [facility] [address] [place] [address], [address] [place] [address] Leonel Wesley, [address] [address] [email or web address] documented as of this encounter Visit Diagnoses Not on filedocumented in this encounter Care Teams Print Line Operator Relationship Specialty Start Date End Date Vince Wilcox MD PCP - General Internal Medicine 09/13/20 02/04/24 Vince Wilcox MD [address] [place] [address] PCP - General Internal Medicine 02/05/24 06/02/24 Bhavna Cormier MD [address] [place] [address], [address] [place] [address] [email or web address] PCP - General Family Medicine 06/03/24 documented as of this encounter Additional Source Comments The information contained in this document represents components of the legal health record. It is not the complete legal health record.[facility]
--- OUTSIDE RECORDS SUMMARY | 2024-12-14 09:27 | XMS_ITS | Encounter Summary ---
Author Organization [facility] Address [address] [place] [address] Phone Care Team Providers Care Emergency Manager Name Role Phone Vince Wilcox MD Primary Care Provider + -[phone] Vince Wilcox MD Primary Care Provider + -[phone] Bhavna Cormier MD Primary Care Provider [phone] Encounter Details Date Type Department Care Team (Latest Contact Info) Description 01/02/2023 Transcribe Orders Virtual Department 30 [place] [address] Estuardo Olea MD [address] [place] [address] [email or web address] Dysphagia, unspecified type (Primary Dx) Social History Tobacco Use Types [...] Description 02/17/2025 10:00 AM EST Office Visit [facility] 234 [place] [address] Bhavna Cormier MD 234 [facility] 7 [place] [address] [email or web address] 04/29/2025 10:10 AM EST Office Visit [facility] 22 [place] [address] John Hamlin [address] [address] 11/09/2025 8:45 AM EDT Appointment [facility] [place] [address] [place] [address] Leonel Wesley [address] [address] 11/22/2025 9:00 AM EDT Office Visit [facility] [address] [facility], [address] [place] [address] Leonel Wesley [address] [address] documented as of this encounter Results * FL BARIUM SWALLOW ESOPHAGRAM DOUBLE CONTRAST (02/08/2023 9:20 AM EST) Anatomical Region Laterality Modality Chest Computed Radiogr aphy 02/08/2023 12:2 2 PM EST Impressions 02/08/2023 5:21 PM EST 1. Large paraesophageal hernia with questioned breakdown or partial breakdown of the known Navdeep fundoplication. 2. Distention of the distal esophagus with moderate to severe esophageal motility FLUOROSCOPY TIME: 2 minutes 32 seconds NUMBER OF IMAGES: 252 ATTESTATION: I, Nita Villalta as teaching physician, have reviewed the images for this case and if necessary edited the report originally created by Nathaniel Serrano. Narrative 02/08/2023 5:21 PM EST BARIUM SWALLOW ESOPHAGRAM DOUBLE CONTRAST HISTORY: Hiatal hernia status post Navdeep fundoplication, recurrent symptoms COMPARISON: Barium swallow 10/28/2020. OPERATORS: Nathaniel Serrano SUPERVISING PHYSICIAN: Nita Villalta TECHNIQUE: Double contrast barium swallow examination was performed with Sodium Carbonate and Barium. The patient was unable to tolerate effervescent crystals. FINDINGS: A preliminary lateral view of the neck demonstrates no acute abnormality. LARYNX: Laryngeal penetration without evidence of aspiration. ESOPHAGUS: Motility: Moderate to severe esophageal dysmotility evidenced by tertiary contractions and reversed peristalsis. Mucosa: Unremarkable. Distensibility: There is distention of the distal esophagus. GASTROESOPHAGEAL JUNCTION: There is a large paraesophageal hernia with questioned breakdown or partial breakdown of the known Navdeep fundoplication. TABLET: A standard 13 mm barium tablet passed through the esophagus into the stomach without difficulty. GASTROESOPHAGEAL REFLUX: None observed. Procedure Note Nita Villalta MD - 02/08/2023 BARIUM SWALLOW ESOPHAGRAM DOUBLE CONTRAST HISTORY: Hiatal hernia status post Navdeep fundoplication, recurrentsymptoms COMPARISON: Barium swallow 10/28/2020. OPERATORS: Nathaniel Serrano SUPERVISING PHYSICIAN: Nita Villalta TECHNIQUE: Double contrast barium swallow examination was performed withSodium Carbonate and Barium. The patient was unable to tolerateeffervescent crystals. FINDINGS: A preliminary lateral view of the neck demonstrates no acuteabnormality. LARYNX: Laryngeal penetration without evidence of aspiration. ESOPHAGUS: Motility: Moderate to severe esophageal dysmotility evidenced bytertiary contractions and reversed peristalsis. Mucosa: Unremarkable. Distensibility: There is distention of the distal esophagus. GASTROESOPHAGEAL JUNCTION: There is a large paraesophageal hernia withquestioned breakdown or partial breakdown of the known Nissenfundoplication. TABLET: A standard 13 mm barium tablet passed through the esophagus intothe stomach without difficulty. GASTROESOPHAGEAL REFLUX: None observed. IMPRESSION: 1. Large paraesophageal hernia with questioned breakdown or partialbreakdown of the known Navdeep fundoplication. 2. Distention of the distal esophagus with moderate to severe esophagealmotility FLUOROSCOPY TIME: 2 minutes 32 seconds NUMBER OF IMAGES: 252 ATTESTATION: I, Nita Villalta as teaching physician, have reviewed theimages for this case and if necessary edited the report originally createdby Nathaniel Serrano. Estuardo Olea MD [facility] Final Result documented in this encounter Visit Diagnoses Diagnosis Dysphagia, unspecified type- Primary Dysphagia, unspecified type documented in this encounter Care Teams Emergency Manager Relationship Specialty Start Date End Date Vince Wilcox MD PCP - General Internal Medicine 09/13/20 02/04/24 Vince Wilcox MD [address] [place] [address] PCP - General Internal Medicine 02/05/24 06/02/24 Bhavna Cormier MD [address] [place] [address] 7 [place] [address] [email or web address] PCP - General Family Medicine 06/03/24 documented as of this encounter Additional Source Comments The information contained in this document represents components of the legal health record. It is not the complete legal health record.[facility]
--- OUTSIDE RECORDS SUMMARY | 2024-12-14 09:27 | XMS_ITS | Encounter Summary ---
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 on file Not on file documented as of this encounter Plan of Treatment Upcoming Encounters Date Type Department Care Team (Late st Contact Info) Description 02/17/2025 10:00 AM EST Office Visit [facility] 234 [place] [address] Bhavna Cormier MD 234 [facility] 7 [place] [address] [email or web address] 04/29/2025 10:10 AM EST Office Visit [facility] 22 [place] [address] John Hamlin [address] [address] 11/09/2025 8:45 AM EDT Appointment [facility] [place] [address] Leonel Wesley, [address] [address] 11/22/2025 9:00 AM EDT Office Visit [facility] [address] [place] [address], [address] [place] [address] Leonel Wesley, [address] [address] documented as of this encounter Visit Diagnoses Not on filedocumented in this encounter Care Teams Network Announcer Relationship Specialty Start Date End Date Vince Wilcox MD PCP - General Internal Medicine 09/13/20 02/04/24 Vince Wilcox MD [address], [place] [address] PCP - General Internal Medicine 02/05/24 06/02/24 Bhavna Cormier MD [address] [place] [address] 7 [place] [address] [email or web address] PCP - General Family Medicine 06/03/24 documented as of this encounter Additional Source Comments The information contained in this document represents components of the legal health record. It is not the complete legal health record.[facility]
--- OUTSIDE RECORDS SUMMARY | 2024-12-14 09:27 | XMS_ITS | Encounter Summary ---
Author Organization [facility] Address [address] [place] [address] Phone Care Team Providers Care Electrician Helper Powerhouse Name Role Phone Vince Wilcox MD Primary Care Provider + [phone] Vince Wilcox MD Primary Care Provider [phone] Bhavna Cormier MD Primary Care Provider [phone] Encounter Details Date Type Department Care Team (Latest Contact Info) Description 06/17/2023 Transcribe Orders Virtual Department 30 [place] [address] Arleth Redd PA [address] [place] [address] Lesion of ovary (Primary Dx) Social History [...] Industry 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 Not on file Not on file documented as of this encounter Plan of Treatment Upcoming Encounters Date Type Department Care Team (Late st Contact Info) Description 02/17/2025 10:00 AM EST Office Visit [facility] 234 [place] [address] Bhavna Cormier MD 234 [facility] 7 [place] [address] [email or web address] 04/29/2025 10:10 AM EST Office Visit [facility] 22 [place] [address] John Hamlin [address] [address] 11/09/2025 8:45 AM EDT Appointment [facility] [address] [place] [address] Leonel Wesley [address] [place] [address] 11/22/2025 9:00 AM EDT Office Visit [facility] [address] [place] [address]rd [facility], [address] [place] [address] Leonel Wesley [address] [place] [address] [address] documented as of this encounter Results * [...] clinician's provided indication for this examination in [facility]: Outside Radiology Order; lesion on ovary TECHNIQUE: [...] clinician's provided indication for this examination in [facility]:Outside Radiology Order; lesion on ovary TECHNIQUE: Pelvic [...] ovary documented in this encounter Care Teams Electrician Helper Powerhouse Relationship Specialty Start Date End Date Vince Wilcox MD PCP - General Internal Medicine 09/13/20 02/04/24 Vince Wilcox MD [address] [place] [address] PCP - General Internal Medicine 02/05/24 06/02/24 Bhavna Cormier MD [address] [place] [address], [address] [place] [address] [email or web address] PCP - General Family Medicine 06/03/24 documented as of this encounter Additional Source Comments The information contained in this document represents components of the legal health record. It is not the complete legal health record.[facility]
--- OUTSIDE RECORDS SUMMARY | 2024-12-14 09:27 | XMS_ITS | Encounter Summary ---
Author Organization [facility] Address [address] [place] [address] Phone Care Team Providers Care Director Critical Care Name Role Phone Vince Wilcox MD Primary Care Provider [phone] Vince Wilcox MD Primary Care Provider [phone] Bhavna Cormier MD Primary Care Provider Reason for Referral * MRI/CAT Scan - Closed Specialty Diagnoses / Procedures Referred By Michael wilson Referred To Contact Radiology Diagnoses Abdominal pain, unspecified abdominal location Procedures CT Abdomen/Pelvis CHG CT SCAN,ABDOMENT AND PELVIS,W CONTRAST Arleth Redd PA [address] [place] [address] Phone: tel: fax: Referral ID Status Reason Start Date Expiration Date Visits Re quested Visits Authorized [id number] Closed 05/01/2023 06/30/2023 1 1 Encounter Details Date Type Department Care Team (Latest Contact Info) Description 05/01/2023 Transcribe Orders Virtual Department [address] [place] [address] Arleth Redd PA [address] [place] [address] Abdominal pain, unspecified abdominal location (Primary Dx) [...] Industry 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 Not on file Not on file documented as of this encounter Plan of Treatment Upcoming Encounters Date Type Department Care Team (Late st Contact Info) Description 02/17/2025 10:00 AM EST Office Visit [facility] 234 [place] [address] Bhavna Cormier MD 234 [facility] 7 [place] [address] [email or web address] 04/29/2025 10:10 AM EST Office Visit [facility] [address] [place] [address] John Hamlin [address] [address] 11/09/2025 8:45 AM EDT Appointment [facility] [address] 3rd [place] [address] Leonel Wesley, 22 [facility] [address] [place] [address] [email or web address] 11/22/2025 9:00 AM EDT Office Visit [facility] 22 [facility] 3rd Floor, [address] [place] [address] Leonel Wesley DO 22 [facility] [address] [place] [address] [email or web address] documented as of this encounter Results * [...] location documented in this encounter Care Teams Director Critical Care Relationship Specialty Start Date End Date Vince Wilcox MD PCP - General Internal Medicine 09/13/20 02/04/24 [place] [address] [place] [address] PCP - General Internal Medicine 02/05/24 06/02/24 Bhavna Cormier MD [address] [place] [address], [address] [place] [address] [email or web address] PCP - General Family Medicine 06/03/24 documented as of this encounter Additional Source Comments The information contained in this document represents components of the legal health record. It is not the complete legal health record.[facility]
--- OUTSIDE RECORDS SUMMARY | 2024-12-14 09:27 | XMS_ITS | Encounter Summary ---
Author Organization [facility] Address [address] [place] [address] Phone Care Team Providers Care Mainframe Analyst Name Role Phone Bhavna Cormier MD Primary Care Provider Reason for Visit * Reason Onset Date Comments Medication Problem 12/10/2024 Re: Fosamax Encounter Details Date Type Department Care Team (Late st Contact Info) Description 12/10/2024 Telephone [facility] 22 [place] [address] Hayley Hernandez RN 22 [place] [address] [email or web address] Medication Problem (Re: Fosamax) Social History [...] Industry 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 Not [...] Description 02/17/2025 10:00 AM EST Office Visit [address] [address] Bhavna Cormier MD [address] [place] [address] 7 [place] [address] [email or web address] 04/29/2025 10:10 AM EST Office Visit [facility] [address] [place] [address] John Hamlin, DO [address] [place] [address] 11/09/2025 8:45 AM EDT Appointment [facility] [place] 3rd [place] [address] Leonel Wesley, DO 22 [facility] [address] [place] [address] 11/22/2025 9:00 AM EDT Office Visit [facility] 22 [facility] 3rd Floor, [address] [place], [place] [address] Leonel Wesley DO 22 [facility] [address] [place] [address] [email or web address] documented as of this encounter Visit Diagnoses Not on filedocumented in this encounter Care Teams Mainframe Analyst Relationship Specialty Start Date End Date Bhavna Cormier MD [address] [place] [address] [address] [place] [address] [email or web address] PCP - General Family Medicine 06/03/24 documented as of this encounter Additional Source Comments The information contained in this document represents components of the legal health record. It is not the complete legal health record.[facility]
--- OUTSIDE RECORDS SUMMARY | 2024-12-14 09:27 | XMS_ITS | Encounter Summary ---
Author Organization [facility] Address [address] [place] [address] Phone Care Team Providers Care Service Director Name Role Phone Vince Wilcox MD Primary Care Provider + [phone] Vince Wilcox MD Primary Care Provider [phone] Bhavna Cormier MD Primary Care Provider Encounter Details Date Type Department Care Team (Late st Contact Info) Description 05/07/2023 Telephone [facility] [address] [place] [address] Swati Lucas RN 30 [place] [address] [email or web address] Social History Tobacco Use Types Packs/Day Years [...] 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 on file Not on file documented as of this encounter Plan of Treatment Upcoming Encounters Date Type Department Care Team (Late st Contact Info) Description 02/17/2025 10:00 AM EST Office Visit [facility] 234 [place] [address] Bhavna Cormier MD [address] [address] [email or web address] 04/29/2025 10:10 AM EST Office Visit [facility] [address] [place] [address] [place] [address] John Hamlin [address] [address] 11/09/2025 8:45 AM EDT Appointment [facility] [address] [place] [address] Leonel Wesley, [address] [address] 11/22/2025 9:00 AM EDT Office Visit [facility] [address] [place] [address], [address] [place] [address] Leonel Wesley [address] [address] documented as of this encounter Visit Diagnoses Not on filedocumented in this encounter Care Teams Service Director Relationship Specialty Start Date End Date Vince Wilcox MD PCP - General Internal Medicine 09/13/20 02/04/24 Vince Wilcox MD [address] [address] PCP - General Internal Medicine 02/05/24 06/02/24 Bhavna Cormier MD [address] [place] [address] 7 [place] [address] [email or web address] PCP - General Family Medicine 06/03/24 documented as of this encounter Additional Source Comments The information contained in this document represents components of the legal health record. It is not the complete legal health record.[facility]
--- OUTSIDE RECORDS SUMMARY | 2024-12-14 09:27 | XMS_ITS | Encounter Summary ---
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 file Not on file documented as of this encounter Plan of Treatment Upcoming Encounters Date Type Department Care Team (Late st Contact Info) Description 02/17/2025 10:00 AM EST Office Visit [facility] 234 [place] [address] Bhavna Cormier MD 234 [facility] 7 [place] [address] [email or web address] 04/29/2025 10:10 AM EST Office Visit [facility] 22 [place] [address] John Hamlin [address] [address] 11/09/2025 8:45 AM EDT Appointment [facility] [place] [address] [address] [place] [address] Leonel Wesley, 22 [facility] [address] [place] [address] 11/22/2025 9:00 AM EDT Office Visit [facility] [address] [place] [address] [facility], [address] [place] [address] Leonel Wesley Ally, DO 22 [facility] [address] [place] [address] [email or web address] documented as of this encounter Visit Diagnoses Not on filedocumented in this encounter Care Teams Singe Winder Relationship Specialty Start Date End Date Vince Wilcox MD PCP - General Internal Medicine 09/13/20 02/04/24 Vince Wilcox MD [address] [address] PCP - General Internal Medicine 02/05/24 06/02/24 Bhavna Cormier MD [address] [place] [address] [address] [place] [address] CAROL@[email or web address] PCP - General Family Medicine 06/03/24 documented as of this encounter Additional Source Comments The information contained in this document represents components of the legal health record. It is not the complete legal health record.[facility]
[2024-12-14 11:48] LABS: Resp Syncy Virus RNA Qual PCR NEGATIVE (Negative); SARS COV2 PCR INHOUSE NEGATIVE (Negative)
== END 2024-12-14 09:14 | disposition home or self-care (01) ==
PROVIDERS: Visit Provider Nurse Practitioner Family
DX: J06.9 Acute upper respiratory infection, unspecified (principal)

== ENCOUNTER → 2024-12-14 08:23 | Outpatient (BNVA) | payer OTHER, SELFPAY | PROVIDERS: Visit Provider Nurse Practitioner Family | DX: J06.9 Acute upper respiratory infection, unspecified (principal) | CPT/HCPCS: 87637 ==

== ENCOUNTER 2024-12-23 09:23 | Outpatient (REF) | payer MEDICARE, SELFPAY ==
[2024-12-23 11:12] LABS: Hematocrit 34.5 % (37.0-47.0); Hemoglobin 11.1 g/dl (12.0-16.0); Mean Corpuscular HGB Conc 32.2 g/dl (31.0-35.0); Mean Corpuscular Hemoglobin 28.0 pg (27.0-33.0); Mean Corpuscular Volume 87.1 fL (80.0-98.0); NRBC Abs Auto 0.000 X10*3/uL (0.0-0.012); NRBC Pct Auto 0.0 /100WBC (0.0-0.2); Platelet Count 212 X10*3/uL (160-400); Red Blood Count 3.96 X10*6/uL (4.20-5.50); White Blood Count 6.2 X10*3/uL (4.8-10.8)
[2024-12-23 12:17] LABS: Alanine Aminotransferase 129 U/L (0-31); Albumin Level 3.7 g/dL (3.5-5.0); Alkaline Phosphatase 203 U/L (39-117); Anion Gap 9 (12-20); Aspartate Amino Transferase 98 U/L (5-31); Blood Urea Nitrogen 7 mg/dL (9-16); Calcium 9.3 mg/dL (8.4-10.2); Carbon Dioxide 30 mmol/L (22-29); Chloride 104 mmol/L (96-108); Estimated Glomerular Filt Rate > 60; Potassium 4.3 mmol/L (3.3-5.1); Sodium 139 mmol/L (135-145); Thyroid Stimulating Hormone 2.17 uIU/mL (0.32-4.0); Total Protein 6.7 g/dL (6.5-8.0)
== END 2024-12-23 09:24 | disposition home or self-care (01) ==
LOC: HO.LAB 09:23
PROVIDERS: Visit Provider Internal Medicine
DX: R53.83 Other fatigue (principal)
CPT/HCPCS: 36415; 80048; 80076; 84443; 85027; 85652

== ENCOUNTER 2024-12-23 09:23 | Outpatient (AMB) | payer OTHER, SELFPAY ==
[2024-12-23 09:40] VITALS: BP 110/72; PULSE 79; O2SAT 99; BMI 24.9
--- NOTE | 2024-12-23 09:40 | A.OFFPC_ITS ---
Vital Signs 12/23/24 09:40 Height 5 ft 2.6 in Weight 139 lb BMI 24.9 BP 110/72 Blood Pressure Location Lt brachial Position Sitting Pulse 79 Pulse Source Pulse Oximeter Pulse Oximetry (%) 99 Oxygen Delivery Method Room Air Intake Visit Reasons: not feeling well Allergies alendronate sodium Adverse Reaction (Mild, Verified 12/23/24 09:44) Difficulty Breathing statin Adverse Reaction (Mild, Uncoded 12/23/24 09:44) Muscle Cramps Tobacco use date assessed: 11/11/24 Fall risk assessment: No Falls in past year Last assessed Fall Risk: 12/23/24 Dental Screening Dental Screen Date: 11/11/24 [facility] Medical History (Updated 12/14/24 @ 08:56 by Tracy Hoover NP) Acute respiratory disease Anxiety Paraesophageal hernia Surgical History (Updated 12/22/24 @ 13:03 by Mag Esqueda) History of colonoscopy (~07/29/18) S/P appendectomy H/O salpingostomy History of bunionectomy H/O esophageal hernia repair Family History Mother Hemorrhage Type 2 diabetes mellitus Lung cancer Father Prostate cancer Social History Housing: House Patient Tobacco Use Status: Former Tobacco user Tobacco use type: Cigarette e-Cigarette/Vaping Use: Never Used Second Hand Smoke Exposure: No service: No Current occupational status: employed 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 Current occupational exposures/hazards: No Cognitive needs: No Hearing needs: No Vision needs: Yes Questionnaire Thrive Questionnaire Date Thrive assessed: 11/09/24 I am a: Patient What is your living situation today?: I have a steady place to live Within the past 12 months, did the food you bought not last and you didn't have the money to get more?: Never true Within the past 12 months, did you worry whether your food would run out before you got money to buy more?: Never true Do you have trouble paying for medicines?: I choose not to answer this question Do you have trouble getting transportation to medical appointments?: No Do you have trouble paying your heating and electricity bill?: I choose not to answer this question Do you have trouble taking care of your child, family member or friend?: No Do you have trouble with day-to-day activities such as bathing, preparing meals, shopping, managing finances, etc.?: No Are you currently unemployed and looking for a job?: No Are you interested in more education?: Yes Please select the resources that you would like help with: None Currently or been in a relationship where the following occur: No concerns reported THRIVE Score: 0 AUDIT C Alcohol Use Questionnaire (AUDIT-C) 1. How often do you have a drink containing alcohol?: Never 3. How often do you have six or more drinks on one occasion?: Never Total Score: 0 DIAN-7 AMB Questionnaire DIAN-7 Date DIAN - 7 assessed: 11/11/24 Source: Developed by Drs. Alexis Granger, Dodie Reyes, Mikie Garcia and colleagues, with an educational rocco from [employer]. Physical exam (Primary Care) Vital Signs: Last Vital Signs Pulse 79 12/23/24 09:40 BP 110/72 12/23/24 09:40 Pulse Ox 99 12/23/24 09:40 Oxygen Delivery Method Room Air 12/23/24 09:40 BMI result Body Mass Index 24.9 Tobacco/Smoking Status: Tobacco use Status Tobacco use date assessed 11/11/24 12/23/24 09:42 Patient Tobacco Use Status Former Tobacco user 12/23/24 09:42 Tobacco use type Cigarette 12/23/24 09:42 e-Cigarette/Vaping Use Never Used 12/23/24 09:42 Thrive Assessment: Date of Thrive Assessment Date Thrive assessed 11/09/24 12/23/24 09:42 Currently or been in a relationship where the following occur: No concerns reported Coding Level of Care Code Est Pt Level 4 (78443) Complex EM visit Add On G2211 Diagnoses Fatigue R53.83 Assessment & Plan Assessment & Plan (1) Fatigue: Code(s): R53.83 - Other fatigue Plan: Blood work from recent ER visit reviewed. TSH has been ordered. With symptoms of fatigue, hyperthyroidism should be ruled out. Empiric use of azithromycin to rule out any upper respiratory tract infection. Note for work given. Plan History of Present Illness - The patient is a 64-year-old female presenting with symptoms of dyspnea, fatigue, and headaches, suspected to be an adverse reaction to alendronate. - The patient started alendronate seven weeks ago after switching from Prolia due to insurance coverage issues. - Two weeks ago, the patient began experiencing severe headaches and dyspnea, leading to discontinuation of alendronate. - The patient visited urgent care and the ER, where no definitive alternative diagnosis was provided. 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 - The patient has a history of optical migraines, which have been exacerbated recently, requiring ice packs for relief. 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 Review of Systems - Respiratory: Reports dyspnea, especially when climbing stairs. - Neurological: Reports severe headaches and optical migraines. - General: Reports fatigue and body aches. Physical Exam General: Cooperative and healthy appearing Nutritional Appearance: Well nourished Orientation/consciousness: Patient oriented x3 Limitations: No limitations Head: Normal to inspection General: Appearance normal, both eyes and all related structures Neck: Normal visual inspection Chest: Normal palpation of entire chest wall Respiratory: Patient reports difficulty breathing, unable to walk upstairs without discomfort, and experiences significant fatigue. ormal respiratory effort Neurology: Patient oriented x3, reports headaches and optical migraines, with recent increase in severity requiring ice packs for relief. Results - Imaging: Chest X-ray performed, results not detailed in the conversation. Plan - Discontinue alendronate due to suspected adverse reaction. - Follow up with [employer] faculty mathematics department for alternative osteoporosis management options. - Monitor symptoms and seek further evaluation if dyspnea or headaches persist. Discussion Notes I discussed with the patient the likely adverse reaction to alendronate and the importance of discontinuing the medication. We reviewed the need to follow up with her adjunct [employer] department to explore alternative osteoporosis treatments. I advised monitoring her symptoms closely and to seek further evaluation if her dyspnea or headaches do not improve. Patient Instructions - Stop taking alendronate immediately. - Schedule an appointment with your adjunct faculty mathematics department to discuss other treatment options for osteoporosis. - Keep track of your symptoms and go to the doctor if your breathing or headaches get worse. Orders: Orders Thyroid Stimulating Hormone Today R53.83 - Other fatigue Erythrocyte Sedimentation Rate Today R53.83 - Other fatigue Complete Blood Count no Diff Today R53.83 - Other fatigue Basic Metabolic Panel Today R53.83 - Other fatigue Liver Panel Today R53.83 - Other fatigue
--- OUTSIDE RECORDS SUMMARY | 2024-12-23 11:06 | XMS_ITS | Encounter Summary ---
Author Organization [facility] Address [address] [place] [address] [address] [place] [address] Phone Care Team Providers Care City Engineer Name Role Phone Vince Wilcox MD Primary Care Provider + [phone] Vince Wilcox MD Primary Care Provider [phone] Bhavna Cormier MD Primary Care Provider Encounter Details Date Type Department Care Team (Late st Contact Info) Description 01/24/2021 Procedure Pass [facility] Admitting Dept Virtual Department [address] [place] [address] Social History Tobacco Use Types Packs/Day Years [...] Upcoming Encounters Date Type Department Care Team (Latest Contact Info) Description 02/17/2025 10:00 AM EST Office Visit [facility] [address] [place] [address] Bhavna Cormier MD [address] [facility], [address] [place] [address] [email or web address] 04/29/2025 10:10 AM EST Office Visit [facility] [address] [place] [address] John Hamlin [address] [address] 11/09/2025 8:45 AM EDT Appointment [facility] [address] [address] Leonel Wesley, [address] [address] 11/22/2025 9:00 AM EDT Ancillary Procedure [facility] [address] [place] [address], [address] [address] Leonel Wesley [address] [address] documented as of this encounter Visit Diagnoses Not on filedocumented in this encounter Additional Health Concerns Infection Onset Date Last Indicated Resolved Time CoV-Risk 12/15/2024 12/15/2024 documented as of this encounter Care Teams City Engineer Relationship Specialty Start Date End Date Vince Wilcox MD PCP - General Internal Medicine 09/13/20 02/04/24 Vince Wilcox MD [address], [place] [address] PCP - General Internal Medicine 02/05/24 06/02/24 Bhavna Cormier MD [address] [facility], [facility] [address] [place] [address] [email or web address] PCP - General Family Medicine 06/03/24 documented as of this encounter Additional Source Comments The information contained in this document represents components of the legal health record. It is not the complete legal health record.[facility]
--- OUTSIDE RECORDS SUMMARY | 2024-12-23 11:06 | XMS_ITS | Encounter Summary ---
Author Organization [facility] Address [address] [place] [address] [place] [address] Phone Care Team Providers Care Desk Operator Name Role Phone Vince Wilcox MD Primary Care Provider + [phone] Vince Wilcox MD Primary Care Provider [phone] Bhavna Cormier MD Primary Care Provider [phone] Encounter Details Date Type Department Care Team (Late st Contact Info) Description 06/27/2023 Procedure Pass [facility], [address] [place] [address] Social History Tobacco Use Types Packs/Day Years [...] 10:00 AM EST Office Visit [facility] [address] [place] [address] Bhavna Cormier MD [address] [facility] [address] [place] [address] [email or web address] 04/29/2025 10:10 AM EST Office Visit [facility] [address] [place] [address] [place] [address] John Hamlin [address] [address] 11/09/2025 8:45 AM EDT Appointment [facility] [address] [place] [address] Leonel Wesley, [address] [address] 11/22/2025 9:00 AM EDT Ancillary Procedure [facility] [address] [place] [address] [place] [address], [address] [place] [address] Leonel Wesley [address] [address] documented as of this encounter Visit Diagnoses Not on filedocumented in this encounter Additional Health Concerns Infection Onset Date Last Indicated Resolved Time CoV-Risk 12/15/2024 12/15/2024 documented as of this encounter Care Teams Desk Operator Relationship Specialty Start Date End Date Vince Wilcox MD PCP - General Internal Medicine 09/13/20 02/04/24 Vince Wilcox MD [address] [address] PCP - General Internal Medicine 02/05/24 06/02/24 Bhavna Cormier MD [address] [place] [address] [address] [place] [address] [email or web address] PCP - General Family Medicine 06/03/24 documented as of this encounter Additional Source Comments The information contained in this document represents components of the legal health record. It is not the complete legal health record.[facility]
--- OUTSIDE RECORDS SUMMARY | 2024-12-23 11:06 | XMS_ITS | Clinical Summary ---
Author Organization [facility] Address [facility] [employer] [address] [address] Phone Care Team Providers Care Mammalogy Teacher Name Role Phone Bhavna Cormier MD [...] health. She is scheduled to see the auto brake mechanic for her normal ongoing follow-up and will need a cardiac clearance prior to this procedure anyway. Epigastric pain 01/21/2023 Assessment & Plan (01/21/2023 4:35 PM EDT): This is a 62-year-old woman who has a history of undergoing hiatal hernia repair with partial gastric fundoplication for gastroesophageal reflux disease with Dr. Ribeiro from [facility] in 2020. The patient has developed epigastric [...] the documentation that was sent over from [facility] including the endoscopy. Bilateral carotid artery [...] due for repeat DXA scan at a [facility] facility on 10/17/2024 this has been requested. [...] she had the last imaging or which [facility] facility it was done. She believes it was in [place] was not [place]. I will ask my staff to send DXA scan request to [facility]. Addendum: She googled her calcium supplementation she [...] use Prolia. Of course she has health [employer] insurance and we do have to get [...] insurance company. I will have the medical consultant's wellness and see if we can get [...] Encounters Date Type Department Care Team Description 12/15/2024 11:52 AM EDT - 12/15/2024 2:33 PM EDT Emergency [facility] [address] [place] [address] Discharge Disposition: Home or Self Care 12/10/2024 Telephone [facility] [address] [place] [address] Hayley Hernandez, hosiery looper Problem (Re: Fosamax) 11/09/2024 9:00 AM EDT Office Visit [facility] [address], [address] [place] [address] Leonel Wesley DO Benign essential hypertension (Primary Dx); Bilateral carotid artery stenosis; Obesity (BMI 30-39.9); Essential familial hypercholesterolemia 11/09/2024 Telephone [facility] [address] [place] [address] Kiana Neal 10/29/2024 Orders Only [facility] [address] [place] [address] John Hamlin DO Other osteoporosis without current pathological fracture (Primary Dx) 10/28/2024 9:26 AM EDT - 10/28/2024 11:59 PM EDT Hospital Encounter [facility] [place] [address] [place] [address] Leonel Wesley DO Discharge Disposition: Home or Self Care 10/27/2024 7:53 AM EDT - 10/27/2024 11:59 PM EDT Hospital Encounter [facility] [address] [place] [address] John Hamlin DO Discharge Disposition: Home or Self Care 10/22/2024 Telephone [facility] [address] [place] [address] John Hamlin DO Medication Prior Authorization (Prolia) [...] uch as food, clothing, or medical care? No 12/15/2024 In the past 12 months have y ou been in a relationship with a person who hurts, threatens, or tries to control you? No 12/15/2024 Are you denied basic needs s uch as food, clothing, or medical care? No 12/15/2024 In the past 12 months have y ou been in a relationship with a person who hurts, threatens, or tries to control you? 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 Not on file Not on file Last Filed Vital Signs Vital Sign Reading Time Taken Comments Blood Pressure 102/65 12/15/2024 2:25 PM EDT Pulse 62 12/15/2024 2:25 PM EDT Temperature 36.4 C (97.5 F) 12/15/2024 2:25 PM EDT Respiratory Rate 16 12/15/2024 2:25 PM EDT Oxygen Saturation 98% 12/15/2024 2:25 PM EDT Inhaled Oxygen Concentration - - Weight 64 kg (141 lb) 12/15/2024 11:41 AM EDT Height 154.9 cm (5' 1 ) 12/15/2024 11:41 AM EDT Body Mass Index 26.64 12/15/2024 11:41 AM EDT Plan of Treatment Upcoming Encounters Date Type Department Care Team (Latest Contact Info) Description 02/17/2025 10:00 AM EST Office Visit [facility] [address] [place] [address] Bhavna Cormier MD [address] [facility], [address] [place] [address] [email or web address] 04/29/2025 10:10 AM EST Office Visit [facility] [address] [place] [address] John Hamlin, DO [address] [place] [address] 11/09/2025 8:45 AM EDT Appointment [facility] [address] [place] [address] Leonel Wesley, [address] [place] [address] 11/22/2025 9:00 AM EDT Ancillary Procedure [facility] [address] [facility], [address] [place] [address] Leonel Wesley, [address] [address] Health Maintenance Due Date Last Done Comments DEPRESSION SCREENING 1971 HEPATITIS C SCREENING 06/19/1977 HIV ONE-TIME SCREENING (18-65 YEARS) 06/19/1977 MAMMOGRAM 1999 COLOGUARD 06/19/2004 COLONOSCOPY 06/19/2004 COLORECTAL CANCER SCREENING 06/19/2004 FIT TEST 06/19/2004 FOBT 06/19/2004 SIGMOIDOSCOPY 06/19/2004 VIRTUAL COLONOSCOPY 06/19/2004 LUNG CANCER SCREENING (LDCT Only) 06/19/2009 PNEUMOCOCCAL VACCINES (50+ years) (2 of 2 - PCV) 01/01/2020 12/31/2018 INFLUENZA VACCINE (#1) 2024 3, 03/16/2022, 02/12/2020, Additional history exists COVID-19 VACCINE ( season) 2024 03/18/2021, 05/23/2020, 05/12/2020, Additional history exists BLOOD PRESSURE 05/12/2025 11/09/2024 TSH LEVEL 12/15/2025 12/15/2024, 03/13/2021 SCREENING FOR DIABETES 12/16/2027 12/15/2024 Adult Td,Tdap Booster 09/02/2031 09/01/2021 , 08/07/2011, [...] this topic Medical Devices Implanted Type Area Distribution Operations Supervisor Device Identifier Shelf Expiration Date Model / Serial / Lot Mesh Mesh Bladder Pin Pin Bilateral: Toe Procedures Procedure Name Priority Date/Time Associated Diagnosis Comments TSH WITH REFLEX STAT 12/15/2024 12:13 PM EDT BASIC METABOLIC PANEL STAT 12/15/2024 12:09 PM EDT CBC AND DIFFERENTIAL STAT 12/15/2024 12:09 PM EDT XR CHEST PA AND LATERAL 2 VIEWS Routine 12/15/2024 12:00 PM EDT ECG 12-LEAD STAT 12/15/2024 11:45 AM EDT US CAROTID DUPLEX COMPLETE (BILATERAL) Routine 10/28/2024 10:29 AM EDT Benign essential hypertension RENAL PANEL Routine 10/27/2024 8:04 AM EDT Other osteoporosis without current pathological fracture BD DXA MONITORING Routine 10/21/2024 9:5 0 AM EDT Other osteoporosis without current pathological fracture from Last 3 Months Results * TSH with reflex (12/15/2024 12:13 PM EDT) TSH 2.59 0.27 - 4.20 uIU/mL [facility] Blood 12/15/2024 12:1 3 PM EDT 12/15/2024 12:24 PM EDT us Jazz Paz PA-C LAB BLOOD ORDERABLES Final Result [facility] [address] [place] [address] * (ABNORMAL) CBC and differential (12/15/2024 12:09 PM EDT) WBC 5.02 4.00 - 11.00 K/uL [facility] RBC 3.98(L) 4.00 - 5.20 M/uL [facility] HGB 11.1(L) 12.0 - 16.0 g/dL [facility] HCT 34.6(L) 36.0 - 46.0 % [facility] PLT 196 150 - 450 K/uL [facility] MCV 86.9 80.0 - 100.0 fL [facility] MCH 27.9 27.0 - 31.0 pg [facility] MCHC 32.1 32.0 - 36.0 g/dL [facility] RDW 15.0(H) 11.5 - 14.5 % [facility] MPV 9.1 8.4 - 12.0 fL [facility] NRBC 0.00 0.00 /100 WBCs [facility] ABSOLUTE NRBC 0.00 0.00 K/uL [facility] DIFF METHOD Manual [facility] TOTAL CELLS COUNTED 100 [facility] NEUTS 38.0(L) 48.0 - 76.0 % [facility] BANDS 1.0 0 - 10 % [facility] LYMPHS 43.0(H) 18.0 - 41.0 % [facility] Comment:Many atypical lymphs present MONOS 11.0 4.0 - 11.0 % [facility] EOS 2.0 0.0 - 5.0 % [facility] BASOS 2.0(H) 0.0 - 1.5 % [facility] MYELOS 2.0(H) 0 % [facility] METAS 1.0(H) 0 % [facility] ABSOLUTE NEUTS 1.96 1.92 - 7.60 K/uL [facility] ABSOLUTE LYMPHS 2.16 0.72 - 4.10 K/uL [facility] ABSOLUTE MONOS 0.55 0.16 - 1.10 K/uL [facility] ABSOLUTE EOS 0.10 0.00 - 0.50 K/uL [facility] ABSOLUTE BASOS 0.10 0.00 - 0.15 K/uL [facility] ABSOLUTE MYELOS 0.10 K/uL [facility] ABSOLUTE METAS 0.05 K/uL [facility] Blood 12/15/2024 12:0 9 PM EDT 12/15/2024 12:24 PM EDT us Valerio Reddy MD LAB BLOOD ORDERAB LES Final Result [facility] [address] [place] [address] * (ABNORMAL) Basic metabolic panel (12/15/2024 12:09 PM EDT) SODIUM 137 133 - 146 mmol/L [facility] CHLORIDE 101 96 - 108 mmol/L [facility] POTASSIUM 3.7 3.3 - 5.1 mmol/L [facility] CO2 26 21 - 35 mmol/L [facility] BUN 6 6 - 19 mg/dL [facility] CREATININE 0.60 0.5 - 1.5 mg/dL [facility] GLUCOSE 115(H) 70 - 99 mg/dL [facility] CALCIUM 9.8 8.4 - 10.3 mg/dL [facility] EGFR 100 >59 mL/min/1.7 3m2 [facility] Comment:Estimated glomerular filtration rate calculated using the CKD-EPI refit equation. ANION GAP 14 10 - 20 mmol/L [facility] Blood 12/15/2024 12:0 9 PM EDT 12/15/2024 12:24 PM EDT us Valerio Reddy MD LAB BLOOD ORDERAB LES Final Result Performing Organization Address City/State/[facility] Co de Phone Number [address] [address] * XR CHEST PA AND LATERAL 2 VIEWS (12/15/2024 12:00 PM EDT) Anatomical Region Laterality Modality Chest Computed Radiogr aphy 12/15/2024 1:28 PM EDT Impressions 12/15/2024 1:28 PM EDT No acute abnormality. Narrative 12/15/2024 1:28 PM EDT XR CHEST PA AND LATERAL 2 VIEWS Referring clinician's provided indication for this examination in [facility]: Dyspnea (Shortness of Breath) COMPARISON: None. FINDINGS: Devices/Tubes/Lines: None. Lungs: No focal consolidation or pulmonary edema. Pleura: No pleural effusion or pneumothorax. Heart/Mediastinum: Normal heart and mediastinum. Bones/Soft Tissues: Degenerative changes of the spine. Procedure Note Madhavi Olivera MD - 12/15/2024 XR CHEST PA AND LATERAL 2 VIEWS Referring clinician's provided indication for this examination in [facility]:Dyspnea (Shortness of Breath) COMPARISON: None. FINDINGS: Devices/Tubes/Lines: None. Lungs: No focal consolidation or pulmonary edema. Pleura: No pleural effusion or pneumothorax. Heart/Mediastinum: Normal heart and mediastinum. Bones/Soft Tissues: Degenerative changes of the spine. IMPRESSION: No acute abnormality. us Valerio Reddy MD IMG XR CHEST F inal Result * ECG 12-LEAD (12/15/2024 11:45 AM EDT) Ventricular Rate EKG/MIN 82 BPM [facility] Atrial Rate 82 BPM [facility] MD Interval 146 ms [facility] QRS Duration 82 ms [facility] QT Interval 366 ms [facility] QTC Interval 427 ms [facility] P [place] 44 degrees [facility] R Wave [place] 15 degrees [facility] T Wave [place] 38 degrees [facility] 12/15/2024 11:4 5 AM EDT 12/16/2024 10:08 AM EDT Narrative [facility] - 12/16/2024 10:08 AM EDT Normal sinus rhythm Cannot rule out Anterior infarct , age undetermined Abnormal ECG No previous ECGs available Confirmed by Abraham Kumari ([id number]) on 12/16/2024 10:08:39 AM us Valerio Reddy MD ECG ORDERABLES F inal Result [facility] * US Carotid Duplex Complete (Bilateral) (10/28/2024 [...] Doppler and spectral waveform Doppler. us Leonel Wesley DO CV US NEUROVASCULAR Final Res ult * (ABNORMAL) Renal panel (10/27/2024 8:04 AM EDT) SODIUM 141 133 - 146 mmol/L [facility] POTASSIUM 4.4 3.3 - 5.1 mmol/L [facility] CHLORIDE 103 96 - 108 mmol/L [facility] CO2 29 21 - 35 mmol/L [facility] GLUCOSE 109(H) 70 - 99 mg/dL [facility] BUN 10 6 - 19 mg/dL [facility] CREATININE 0.70 0.5 - 1.5 mg/dL [facility] CALCIUM 10.1 8.4 - 10.3 mg/dL [facility] PHOSPHORUS 3.4 2.7 - 4.5 mg/dL [facility] ALBUMIN 4.3 3.9 - 4.8 g/dL [facility] EGFR 96 >59 mL/min/1.7 3m2 [facility] Comment:Estimated glomerular filtration rate calculated using the CKD-EPI refit equation. ANION GAP 13 10 - 20 mmol/L [facility] Blood 10/27/2024 8:04 AM EDT 10/27/2024 8:06 AM EDT us John Hamlin DO LAB BLOOD ORDERABLES Final Resul t [facility] [address] [place] [address] * DXA Monitoring (10/21/2024 9:50 AM EDT) Anatomical Region Laterality Modality Bone Density Bone Density Jonh Hamlin DO IMG BD BONE DENSITY DEXA Final R esult from Last 3 Months Additional Health Concerns Infection Onset Date Last Indicated CoV-Risk 12/15/2024 12/15/2024 Insurance [employer] PPO MEDICARE REPLACEMENT [employer] PPO MEDICARE REPLACEMENT [employer] PPO MEDICARE REPLACEMENT AET[employer] O MEDICARE REPLACEMENT AETNA O MEDICARE REPLACEMENT AET[employer] O MEDICARE REPLACEMENT Advance Directives For more information, please contact: [phone] (9AM - 5PM Angie/[facility], Saturday-Saturday) Documents on File Type Date Recorded Patient Spool Winder Expl anation Healthcare Proxy 01/30/2024 * Full Code (Latest Code Status on File) Date Activated Date Inactivated Comments 01/30/2024 6:43 AM Question Answer Comments Code Status Confirmed With: Patient Care Teams Mammalogy Teacher Relationship Specialty Start Date End Date Bhavna Cormier MD [address] [place] [address] [address] [place] [address] [email or web address] PCP - General Family Medicine 06/03/24 Additional Source Comments The information contained in this document represents components of the legal health record. It is not the complete legal health record.[facility]
--- OUTSIDE RECORDS SUMMARY | 2024-12-23 11:06 | XMS_ITS | Encounter Summary ---
Author Organization Located Within [facility] Address [facility] [employer] [facility] [address] [place] [address] Phone Care Team Providers Care Laborer Prestressed Concrete Name Role Phone Vince Wilcox MD Primary Care Provider [phone] Vince Wilcox MD Primary Care Provider [phone] Bhavna Cormier MD Primary Care Provider Encounter Details Date Type Department Care Team (Late st Contact Info) Description 12/30/2020 Procedure Pass [facility] Endoscopy Admitting Dept Virtual Department [address] [place] [address] Social History Tobacco Use Types Packs/Day Years [...] Description 02/17/2025 10:00 AM EST Office Visit [facility] [address] [place] [address] Bhavna Cormier MD 234 [facility], [address] [place] [address] [email or web address] 04/29/2025 10:10 AM EST Office Visit [facility] [address] [place] [address] John Hamlin [address] [address] 11/09/2025 8:45 AM EDT Appointment [facility] [address] [address] Leonel Wesley, [address] [address] 11/22/2025 9:00 AM EDT Ancillary Procedure [facility] [address] [place] [address], [address] [address] Leonel Wesley [address] [address] documented as of this encounter Visit Diagnoses Not on filedocumented in this encounter Additional Health Concerns Infection Onset Date Last Indicated Resolved Time CoV-Risk 12/15/2024 12/15/2024 documented as of this encounter Care Teams Laborer Prestressed Concrete Relationship Specialty Start Date End Date Vince Wilcox MD PCP - General Internal Medicine 09/13/20 02/04/24 Vince Wilcox MD [address] [address] PCP - General Internal Medicine 02/05/24 06/02/24 Bhavna Cormier MD [address] [facility], [facility] [address] [place] [address] [email or web address] PCP - General Family Medicine 06/03/24 documented as of this encounter Additional Source Comments The information contained in this document represents components of the legal health record. It is not the complete legal health record.[facility]
--- OUTSIDE RECORDS SUMMARY | 2024-12-23 11:06 | XMS_ITS | Encounter Summary ---
Author Organization [facility] Address [address] [place] [address] Phone Care Team Providers Care Process Control Technician Name Role Phone Vince Wilcox MD Primary Care Provider [phone] Vince Wilcox MD Primary Care Provider [phone] Bhavna Cormier MD Primary Care Provider Reason for Referral * MRI/CAT Scan - Closed Specialty Diagnoses / Procedures Referred By Michael wilson Referred To Contact Radiology Diagnoses Dilated bile duct Procedures MRI Cholangiopancreatography (MRCP) CHG MRI, ABDOMEN, COMBO Arleth Redd PA [address] [place] [address] Phone: tel: fax: Referral ID Status Reason Start Date Expiration Date Visits Re quested Visits Authorized [id number] Closed 06/17/2023 08/16/2023 1 1 Encounter Details Date Type Department Care Team (Latest Contact Info) Description 06/27/2023 Transcribe Orders Virtual Department [address] [place] [address] Arleth Redd PA [address] [place], [place] [id number] Dilated bile duct (Primary Dx) Social History [...] Visit [facility] [address] [place] [address] Bhavna Cormier MD 234 [facility] 7 [place] [address] [email or web address] 04/29/2025 10:10 AM EST Office Visit [facility] [address] [place] [address] John Hamlin, [address] [address] 11/09/2025 8:45 AM EDT Appointment [facility] [place] [address] [place] [address] 3rd [place] [address] Leonel Wesley, 22 [facility] [address] [place] [address] [email or web address] 11/22/2025 9:00 AM EDT Ancillary Procedure [facility] [address] [facility] 3rd Floor, [address] [place] [address] Leonel Wesley DO 22 [facility] [address] [place] [address] [email or web address] documented as of this encounter Results * [...] Dilated bile duct documented in this encounter Additional Health Concerns Infection Onset Date Last Indicated Resolved Time CoV-Risk 12/15/2024 12/15/2024 documented as of this encounter Care Teams Process Control Technician Relationship Specialty Start Date End Date Vince Wilcox MD PCP - General Internal Medicine 09/13/20 02/04/24 Vince Wilcox MD [address] [place] [address] PCP - General Internal Medicine 02/05/24 06/02/24 Bhavna Cormier MD [address] [place] [address] [address] [place] [id number] [email or web address] PCP - General Family Medicine 06/03/24 documented as of this encounter Additional Source Comments The information contained in this document represents components of the legal health record. It is not the complete legal health record.[facility]
--- OUTSIDE RECORDS SUMMARY | 2024-12-23 11:06 | XMS_ITS | Encounter Summary ---
Author Organization [facility] Address [facility] [facility] [address] [place] [address] Phone Care Team Providers Care Needle Grader Name Role Phone Vince Wilcox MD Primary Care Provider [phone] Vince Wilcox MD Primary Care Provider [phone] Bhavna Cormier MD Primary Care Provider Encounter Details Date Type Department Care Team (Late st Contact Info) Description 10/31/2020 Procedure Pass [facility] [address] [place] [address] Social History Tobacco Use Types Packs/Day Years [...] Description 02/17/2025 10:00 AM EST Office Visit [facility] [address] [place] [address] Bhavna Cormier MD [address] [facility], [address] [place], [place] [id number] [email or web address] 04/29/2025 10:10 AM EST Office Visit [facility] [address] [place] [address] John Hamlin [address] [address] 11/09/2025 8:45 AM EDT Appointment [facility] [address] [place] [address] Leonel Wesley, [address] [place] [address] 11/22/2025 9:00 AM EDT Ancillary Procedure [facility] [address], [address] [address] Leonel Wesley [address] [address] documented as of this encounter Visit Diagnoses Not on filedocumented in this encounter Additional Health Concerns Infection Onset Date Last Indicated Resolved Time CoV-Risk 12/15/2024 12/15/2024 documented as of this encounter Care Teams Needle Grader Relationship Specialty Start Date End Date Vince Wilcox MD PCP - General Internal Medicine 09/13/20 02/04/24 Vince Wilcox MD [address] [place] [address] PCP - General Internal Medicine 02/05/24 06/02/24 Bhavna Cormier MD [address] [place] [address] [email or web address] PCP - General Family Medicine 06/03/24 documented as of this encounter Additional Source Comments The information contained in this document represents components of the legal health record. It is not the complete legal health record.[facility]
--- OUTSIDE RECORDS SUMMARY | 2024-12-23 11:06 | XMS_ITS | Encounter Summary ---
Author Organization [facility] Address [address] [place] [address] [place] [address] Phone Care Team Providers Care Retail Account Specialist Name Role Phone Bhavna Cormier MD Primary Care Provider Encounter Details Date Type Department Care Team (Late st Contact Info) Description 11/09/2024 Telephone [facility] [address] [place] [address] Kiana 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 Hamlin is contracted with her insurance. Informed patient insurance is accepted based off insurance participation grid, pt would like a call back. Please contact and advise. Central Support Automotive Technology Instructor (Please do not reply to this user; this inbox is not monitored.) Thank you. documented in this encounter Plan of Treatment Upcoming Encounters Date Type Department Care Team (Latest Contact Info) Description 02/17/2025 10:00 AM EST Office Visit [address] [address] Bhavna Cormier MD [address] [place] [address] [address] [place] [address] [email or web address] 04/29/2025 10:10 AM EST Office Visit [facility] [address] [place] [address] John Hamlin DO 22 [place] [address] 11/09/2025 8:45 AM EDT Appointment [facility] [address] 3rd [place] [address] Leonel Wesley, DO 22 [facility] [address] [place] [address] [email or web address] 11/22/2025 9:00 AM EDT Ancillary Procedure [facility] [address] 3rd [facility], [address] [place] [address] Leonel Wesley, DO 22 [facility] [address] [place] [address] [email or web address] documented as of this encounter Visit Diagnoses Not on filedocumented in this encounter Additional Health Concerns Infection Onset Date Last Indicated Resolved Time CoV-Risk 12/15/2024 12/15/2024 documented as of this encounter Care Teams Retail Account Specialist Relationship Specialty Start Date End Date Bhavna Cormier MD [address] [place] [address] 7 [place] [address] [email or web address] PCP - General Family Medicine 06/03/24 documented as of this encounter Additional Source Comments The information contained in this document represents components of the legal health record. It is not the complete legal health record.[facility]
--- OUTSIDE RECORDS SUMMARY | 2024-12-23 11:07 | XMS_ITS | Encounter Summary ---
Author Organization [facility] Address [address] [place] [address] [place] [address] Phone Care Team Providers Care Director Of Campus Recreation Name Role Phone Vince Wilcox MD Primary Care Provider [phone] Vince Wilcox MD Primary Care Provider [phone] Bhavna Cormier MD Primary Care Provider Encounter Details Date Type Department Care Team (Late st Contact Info) Description 06/18/2023 Procedure Pass [facility] Endoscopy Admitting Dept Virtual Department 30 [place], [place] [id number] Social History Tobacco Use Types Packs/Day Years [...] Industry 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 7 [place] [address] [email or web address] 04/29/2025 10:10 AM EST Office Visit [facility] [address] [place] [address] [place] [address] [address] Ham[address] [address] 11/09/2025 8:45 AM EDT Appointment [facility] [address] [place] [address] Leonel Wesley, [address] [address] 11/22/2025 9:00 AM EDT Ancillary Procedure [facility] [address] [place] [address] [place] [address], [address] [place] [address] Leonel Wesley [address] [address] documented as of this encounter Visit Diagnoses Not on filedocumented in this encounter Additional Health Concerns Infection Onset Date Last Indicated Resolved Time CoV-Risk 12/15/2024 12/15/2024 documented as of this encounter Care Teams Director Of Campus Recreation Relationship Specialty Start Date End Date Vince Wilcox MD PCP - General Internal Medicine 09/13/20 02/04/24 Vince Wilcox MD [address] [address] PCP - General Internal Medicine 02/05/24 06/02/24 Bhavna Cormier MD [address] [place] [address] 7 [place] [address] [email or web address] PCP - General Family Medicine 06/03/24 documented as of this encounter Additional Source Comments The information contained in this document represents components of the legal health record. It is not the complete legal health record.[facility]
--- OUTSIDE RECORDS SUMMARY | 2024-12-23 11:07 | XMS_ITS | Encounter Summary ---
Author Organization [facility] Address [address] [place] [address] [place] [address] Phone Care Team Providers Care Secretarial Teacher Name Role Phone Bhavna Cormier MD Primary Care Provider Reason for Visit * Reason Onset Date Comments Medication Problem 12/10/2024 Re: Fosamax Encounter Details Date Type Department Care Team (Late st Contact Info) Description 12/10/2024 Telephone [facility] 22 [place] [address] Hayley Hernandez RN 22 [place] [address] [email or web address] Medication Problem (Re: Fosamax) Social History Tobacco [...] 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 Wish to be (Past 1 Month) No 025 11:40 AM EDT Elham Porter RN 2. Non-Specific Active Suici miles Thoughts (Past 1 Month) No 12/15/2024 11:40 AM EDT Gregor Porter RN 6. Suicidal Behavior (Lifetime) No 11:40 AM EDT Elham Porter RN documented as of this encounter Progress Notes * Jaz Harvey - 12/18/2024 5:53 PM EDT Lvm advising patient that we are unable to r/s appt at this time. I informed her that a PA for Prolia is in process and we will call as soon as it is acquired. * Hayley Hernandez RN - 12/17/2024 4:48 PM EDT Noted that a PA is needed on Prolia. Don't reschedule until PA completed and approved. * Esha Vasques - 12/16/2024 9:22 AM EDT LVMTCB and R/S * Guerline Wilson RN - 12/16/2024 9:13 AM EDT It appears prolia needs PA so todays appt will need to be cancelled. Can you please call patient tocancel nurse visit? Will call her back once PA is done, thanks To SUSAN pena for PA * Shannon Phan - 12/14/2024 2:40 PM EDT Pt is scheduled. * Hayley Hernandez RN - 12/14/2024 1:37 PM EDT Pt left a voicemail, stating she is looking to schedule her appointment for Prolia injection. Last Prolia was 04/27/[address] Hamlin. Pt was due as of 10/26, so she is overdue. Can you call her and please schedule her in nurse schedule. * Johana Baldwin - 12/14/2024 10:06 AM EDT Pt returning call. She states she will be available all day today for a return call. Central Support Poundmaster (Please do not reply to this user; this inbox is not monitored.) Thank you. * Hayley Hernandez RN - 12/11/2024 12:38 [...] Description 02/17/2025 10:00 AM EST Office Visit [facility] 234 [place] [address] Bhavna Cormier MD 234 [facility] 7 [place] [address] [email or web address] 04/29/2025 10:10 AM EST Office Visit [facility] [address] [place] [address] John Hamlin [address] [address] 11/09/2025 8:45 AM EDT Appointment [facility] [address] [place] [address] Leonel Wesley, [address] [address] 11/22/2025 9:00 AM EDT Ancillary Procedure [facility] 22 [facility] 3rd [facility], [address] [place] [address] Leonel Wesley, [address] [address] documented as of this encounter Visit Diagnoses Not on filedocumented in this encounter Additional Health Concerns Infection Onset Date Last Indicated Resolved Time CoV-Risk 12/15/2024 12/15/2024 documented as of this encounter Care Teams Secretarial Teacher Relationship Specialty Start Date End Date Bhavna Cormier MD [address] [place] [address], [address] [place] [address] [email or web address] PCP - General Family Medicine 06/03/24 documented as of this encounter Additional Source Comments The information contained in this document represents components of the legal health record. It is not the complete legal health record.[facility]
--- OUTSIDE RECORDS SUMMARY | 2024-12-23 11:07 | XMS_ITS | Encounter Summary ---
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 on file Not on file documented as of this encounter Plan of Treatment Upcoming Encounters Date Type Department Care Team (Latest Contact Info) Description 02/17/2025 10:00 AM EST Office Visit [facility] [address] [address] Bhavna Cormier MD [address] [address] [email or web address] 04/29/2025 10:10 AM EST Office Visit [facility] [address] [place] [address] [place] [address] John Hamlin [address] [address] 11/09/2025 8:45 AM EDT Appointment [facility] [place] [address] [address] 3rd [place] [address] Leonel Wesley, 22 [facility] [address] [place] [address] 11/22/2025 9:00 AM EDT Ancillary Procedure [facility] [address] [place] [address]rd [facility], [address] [place] [address] Leonel Wesley, DO 22 [facility] [address] [place] [address] [email or web address] documented as of this encounter Visit Diagnoses Not on filedocumented in this encounter Additional Health Concerns Infection Onset Date Last Indicated Resolved Time CoV-Risk 12/15/2024 12/15/2024 documented as of this encounter Care Teams Veterinary Pharmacologist Relationship Specialty Start Date End Date Vince Wilcox MD PCP - General Internal Medicine 09/13/20 02/04/24 Vince Wilcox MD [facility] [address] PCP - General Internal Medicine 02/05/24 06/02/24 Bhavna Cormier MD [address] [place] [address] 7 [place] [address] [email or web address] PCP - General Family Medicine 06/03/24 documented as of this encounter Additional Source Comments The information contained in this document represents components of the legal health record. It is not the complete legal health record.[facility]
--- OUTSIDE RECORDS SUMMARY | 2024-12-23 11:07 | XMS_ITS | Encounter Summary ---
Author Organization [facility] Address [address] [place] [address] Phone Care Team Providers Care Software Engineering Analyst Name Role Phone Vince Wilcox MD Primary Care Provider + [phone] Vince Wilcox MD Primary Care Provider [phone] Bhavna Cormier MD Primary Care Provider [phone] Encounter Details Date Type Department Care Team (Latest Contact Info) Description 06/17/2023 Transcribe Orders Virtual Department 30 [place] [address] Arleth Redd PA [address] [place] [address] Lesion of ovary (Primary Dx) Social History [...] 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 Not on file documented as of this encounter Plan of Treatment Upcoming Encounters Date Type Department Care Team (Latest Contact Info) Description 02/17/2025 10:00 AM EST Office Visit [facility] 234 [place] [address] Bhavna Cormier MD [address] [address] [email or web address] 04/29/2025 10:10 AM EST Office Visit [facility] [address] [place] [address] [place] [address] John Hamlin [address] [address] 11/09/2025 8:45 AM EDT Appointment [facility] [address] [place] [address] Leonel Wesley [address] [place] [address] 11/22/2025 9:00 AM EDT Ancillary Procedure [facility] [address] [place] 3rd [facility], [address] [place] [address] Leonel Wesley [address] [address] documented as of this encounter Results * [...] clinician's provided indication for this examination in [facility]: Outside Radiology Order; lesion on ovary TECHNIQUE: [...] clinician's provided indication for this examination in [facility]:Outside Radiology Order; lesion on ovary TECHNIQUE: Pelvic [...] Lesion of ovary documented in this encounter Additional Health Concerns Infection Onset Date Last Indicated Resolved Time CoV-Risk 12/15/2024 12/15/2024 documented as of this encounter Care Teams Software Engineering Analyst Relationship Specialty Start Date End Date Vince Wilcox MD PCP - General Internal Medicine 09/13/20 02/04/24 Vince Wilcox MD [address] [place] [address] PCP - General Internal Medicine 02/05/24 06/02/24 Bhavna Cormier MD [address] [place] [address], [facility] 7 [place] [address] [email or web address] PCP - General Family Medicine 06/03/24 documented as of this encounter Additional Source Comments The information contained in this document represents components of the legal health record. It is not the complete legal health record.[facility]
--- OUTSIDE RECORDS SUMMARY | 2024-12-23 11:07 | XMS_ITS | Encounter Summary ---
Author Organization [facility] Address [address] [place] [address] Phone Care Team Providers Care Assembler Name Role Phone Vince Wilcox MD Primary Care Provider [phone] Vince Wilcox MD Primary Care Provider [phone] Bhavna Cormier MD Primary Care Provider Encounter Details Date Type Department Care Team (Late st Contact Info) Description 10/07/2020 Ancillary Orders Virtual Department 30 [place] [address] Dodie Norman NP 10 [place] [address] Dysphagia, unspecified type Social History Tobacco Use [...] AM EST Office Visit [facility] 234 [place] [address] Bhavna Cormier MD [address] [place] [address], [address] [place] [address] [email or web address] 04/29/2025 10:10 AM EST Office Visit [facility] [address] [place] [address] [place] [address] John Hamlin [address] [address] 11/09/2025 8:45 AM EDT Appointment [facility] [address] [place] [address] Leonel Wesley [address] [place] [address] 11/22/2025 9:00 AM EDT Ancillary Procedure [facility] [address] [place] [address], [address] [place] [address] Leonel Wesley [address] [place] [address] documented as of this encounter Results * [...] Dysphagia, unspecified type documented in this encounter Additional Health Concerns Infection Onset Date Last Indicated Resolved Time CoV-Risk 12/15/2024 12/15/2024 documented as of this encounter Care Teams Assembler Relationship Specialty Start Date End Date Vince Wilcox MD PCP - General Internal Medicine 09/13/20 02/04/24 Vince Wilcox MD [address] [address] PCP - General Internal Medicine 02/05/24 06/02/24 Bhavna Cormier MD [address] [place] [address] 7 [place] [address] [email or web address] PCP - General Family Medicine 06/03/24 documented as of this encounter Additional Source Comments The information contained in this document represents components of the legal health record. It is not the complete legal health record.[facility]
--- OUTSIDE RECORDS SUMMARY | 2024-12-23 11:07 | XMS_ITS | Encounter Summary ---
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 Not on file documented as of this encounter Plan of Treatment Upcoming Encounters Date Type Department Care Team (Latest Contact Info) Description 02/17/2025 10:00 AM EST Office Visit [facility] 234 [place] [address] Bhavna Cormier MD 234 [facility] 7 [place] [address] [email or web address] 04/29/2025 10:10 AM EST Office Visit [facility] [address] [place] [address] [place] [address] John Hamlin [address] [address] 11/09/2025 8:45 AM EDT Appointment [facility] [address] [place] [address] Leonel Wesley, [address] [address] 11/22/2025 9:00 AM EDT Ancillary Procedure [facility] [address] [place] [address] [place] [address], [address] [place] [address] Leonel Wesley [address] [address] documented as of this encounter Visit Diagnoses Not on filedocumented in this encounter Additional Health Concerns Infection Onset Date Last Indicated Resolved Time CoV-Risk 12/15/2024 12/15/2024 documented as of this encounter Care Teams Explosives Mixer Operator Relationship Specialty Start Date End Date Vince Wilcox MD PCP - General Internal Medicine 09/13/20 02/04/24 Vince Wilcox MD [address] [address] PCP - General Internal Medicine 02/05/24 06/02/24 Bhavna Cormier MD [address] [place] [address] 7 [place] [address] [email or web address] PCP - General Family Medicine 06/03/24 documented as of this encounter Additional Source Comments The information contained in this document represents components of the legal health record. It is not the complete legal health record.[facility]
--- OUTSIDE RECORDS SUMMARY | 2024-12-23 11:07 | XMS_ITS | Encounter Summary ---
Author Organization [facility] Address [address] [place] [address] Phone Care Team Providers Care Crate Tier Name Role Phone Vince Wilcox MD Primary Care Provider [phone] Vince Wilcox MD Primary Care Provider Bhavna Cormier MD Primary Care Provider Encounter Details Date Type Department Care Team (Latest Contact Info) Description 09/14/2020 Transcribe Orders Virtual Department 30 [place] [address] Dodie Norman NP 10 [place] [address] Dysphagia, pharyngoesophageal phase (Primary Dx) Social History [...] Description 02/17/2025 10:00 AM EST [facility] 234 [place] [address] Bhavna Cormier MD 234 [facility] 7 [place] [address] [email or web address] 04/29/2025 10:10 AM EST Office Visit [facility] [address] [place] [address] [place] [address] John Hamlin [address] [address] 11/09/2025 8:45 AM EDT Appointment [facility] [place]rd [place] [address] Leonel Wesley, [address] [place] [address] 11/22/2025 9:00 AM EDT Ancillary Procedure [facility] [address] [place] [address], [address] [place] [address] Leonel Wesley, [address] [place] [address] documented as of this encounter Visit Diagnoses Diagnosis Dysphagia, pharyngoesophageal phase- Primary documented in this encounter Additional Health Concerns Infection Onset Date Last Indicated Resolved Time CoV-Risk 12/15/2024 12/15/2024 documented as of this encounter Care Teams Crate Tier Relationship Specialty Start Date End Date Vince Wilcox MD PCP - General Internal Medicine 09/13/20 02/04/24 Vince Wilcox MD [address] [place] [address] PCP - General Internal Medicine 02/05/24 06/02/24 Bhavna Cormier MD [address] [place] [address] 7 [place] [address] [email or web address] PCP - General Family Medicine 06/03/24 documented as of this encounter Additional Source Comments The information contained in this document represents components of the legal health record. It is not the complete legal health record.[facility]
--- OUTSIDE RECORDS SUMMARY | 2024-12-23 11:07 | XMS_ITS | Encounter Summary ---
Author Organization [facility] Address [address] [place] [address] Phone Care Team Providers Care Behavioral Intervention Specialist Name Role Phone Vince Wilcox MD Primary Care Provider [phone] Vince Wilcox MD Primary Care Provider [phone] Bhavna Cormier MD Primary Care Provider Reason for Referral * MRI/CAT Scan - Closed Specialty Diagnoses / Procedures Referred By Michael wilson Referred To Contact Radiology Diagnoses Abdominal pain, unspecified abdominal location Procedures CT Abdomen/Pelvis CHG CT SCAN,ABDOMENT AND PELVIS,W CONTRAST Arleth Redd PA 10 [place] [address] Phone: tel: fax: Referral ID Status Reason Start Date Expiration Date Visits Re quested Visits Authorized [id number] Closed 05/01/2023 06/30/2023 1 1 Encounter Details Date Type Department Care Team (Latest Contact Info) Description 05/01/2023 Transcribe Orders Virtual Department 30 [place] [address] Arleth Redd PA 10 [place] [address] Abdominal pain, unspecified abdominal location (Primary Dx) [...] 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 Not on file documented as of this encounter Plan of Treatment Upcoming Encounters Date Type Department Care Team (Latest Contact Info) Description 02/17/2025 10:00 AM EST Office Visit [facility] Medicine [address] [place] [address] Bhavna Cormier MD 234 [facility] 7 [place] [address] [email or web address] 04/29/2025 10:10 AM EST Office Visit [facility] [address] [place] [address] John Hamlin [address] [address] 11/09/2025 8:45 AM EDT Appointment [facility] [address] 3rd [place] [address] Leonel Wesley, [address] [facility] [address] [place] [address] [email or web address] 11/22/2025 9:00 AM EDT Ancillary Procedure [facility] [address] [facility] 3rd Floor, [address] [place] [address] Leonel Wesley DO [address] [facility] [address] [place] [address] [email or web address] documented as of this encounter Results * [...] unspecified abdominal location documented in this encounter Additional Health Concerns Infection Onset Date Last Indicated Resolved Time CoV-Risk 12/15/2024 12/15/2024 documented as of this encounter Care Teams Behavioral Intervention Specialist Relationship Specialty Start Date End Date Vince Wilcox MD PCP - General Internal Medicine 09/13/20 02/04/24 Vince Wilcox MD [address] [place] [address] PCP - General Internal Medicine 02/05/24 06/02/24 Bhavna Cormier MD [address] [place] [address] 7 [place] [address] [email or web address] PCP - General Family Medicine 06/03/24 documented as of this encounter Additional Source Comments The information contained in this document represents components of the legal health record. It is not the complete legal health record.[facility]
--- OUTSIDE RECORDS SUMMARY | 2024-12-23 11:07 | XMS_ITS | Encounter Summary ---
Author Organization [facility] Address [address] [place] [address] [place] [address] Phone Care Team Providers Care Health Promotion Coordinator Name Role Phone Vince Wilcox MD Primary Care Provider [phone] Vince Wilcox MD Primary Care Provider [phone] Bhavna Cormier MD Primary Care Provider Encounter Details Date Type Department Care Team (Latest Contact Info) Description 01/02/2023 Transcribe Orders Virtual Department 30 [place] [address] Estuardo Olea MD [address] [place] [address] [email or web address] [...] AM EST Office Visit [facility] 234 [place] [address] Bhavna Cormier MD 234 [facility] 7 [place] [address] [email or web address] 04/29/2025 10:10 AM EST Office Visit [facility] [address] [place] [address] John Hamlin [address] [address] 11/09/2025 8:45 AM EDT Appointment [facility] [address] [place] [address] Leonel Wesley [address] [address] 11/22/2025 9:00 AM EDT Ancillary Procedure [facility] [address] [facility], [address] [place] [address] Leonel Wesley [address] [address] documented as of this encounter Results * [...] originally createdby Nathaniel Serrano. Estuardo Olea MD [facility] Final Result documented in this encounter Visit Diagnoses Diagnosis Dysphagia, unspecified type- Primary Dysphagia, unspecified type documented in this encounter Additional Health Concerns Infection Onset Date Last Indicated Resolved Time CoV-Risk 12/15/2024 12/15/2024 documented as of this encounter Care Teams Health Promotion Coordinator Relationship Specialty Start Date End Date Vince Wilcox MD PCP - General Internal Medicine 09/13/20 02/04/24 Vince Wilcox MD [address] [place] [address] PCP - General Internal Medicine 02/05/24 06/02/24 Bhavna Cormier MD [address] [place] [address] 7 [place] [address] [email or web address] PCP - General Family Medicine 06/03/24 documented as of this encounter Additional Source Comments The information contained in this document represents components of the legal health record. It is not the complete legal health record.[facility]
--- OUTSIDE RECORDS SUMMARY | 2024-12-23 11:07 | XMS_ITS | Encounter Summary ---
Author Organization [facility] Address [address] [place] [address] [place] [address] Phone Care Team Providers Care Undertaker Assistant Name Role Phone Vince Wilcox MD Primary Care Provider + [phone] Vince Wilcox MD Primary Care Provider [phone] Bhavna Cormier MD Primary Care Provider [phone] Encounter Details Date Type Department Care Team (Late st Contact Info) Description 05/01/2023 Procedure Pass [facility], Ct Scan - [address] [address] Social History Tobacco Use Types Packs/Day Years [...] 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 Not on file documented as of this encounter Plan of Treatment Upcoming Encounters Date Type Department Care Team (Latest Contact Info) Description 02/17/2025 10:00 AM EST Office Visit [facility] 234 [place] [address] Bhavna Cormier MD 234 [facility] 7 [place] [address] [email or web address] 04/29/2025 10:10 AM EST Office Visit [facility] [address] [place] [address] [place] [address] John Hamlin [address] [address] 11/09/2025 8:45 AM EDT Appointment [facility] [place] [address] [place] [address] [place] [address] Leonel Wesley, [address] [address] 11/22/2025 9:00 AM EDT Ancillary Procedure [facility] [address] [place] [address] [place] [address], [address] [place] [address] Leonel Wesley [address] [address] documented as of this encounter Visit Diagnoses Not on filedocumented in this encounter Additional Health Concerns Infection Onset Date Last Indicated Resolved Time CoV-Risk 12/15/2024 12/15/2024 documented as of this encounter Care Teams Undertaker Assistant Relationship Specialty Start Date End Date Vince Wilcox MD PCP - General Internal Medicine 09/13/20 02/04/24 Vince Wilcox MD [address] [address] PCP - General Internal Medicine 02/05/24 06/02/24 Bhavna Cormier MD [address] [place] [address] 7 [place] [address] [email or web address] PCP - General Family Medicine 06/03/24 documented as of this encounter Additional Source Comments The information contained in this document represents components of the legal health record. It is not the complete legal health record.[facility]
--- OUTSIDE RECORDS SUMMARY | 2024-12-23 11:07 | XMS_ITS | Encounter Summary ---
Author Organization [facility] Address [facility] [employer] [facility] [address] [place] [address] Phone Care Team Providers Care Telecommunications Analyst Name Role Phone Vince Wilcox MD Primary Care Provider + [phone] Vince Wilcox MD Primary Care Provider [phone] Bhavna Cormier MD Primary Care Provider Encounter Details Date Type Department Care Team (Late st Contact Info) Description 02/21/2021 Procedure Pass [facility] Admitting Dept Virtual Department 30 [place] [address] Social History Tobacco Use Types Packs/Day Years [...] Description 02/17/2025 10:00 AM EST Office Visit [facility] [address] [place] [address] Bhavna Cormier MD 234 [facility], [address] [place] [address] [email or web address] 04/29/2025 10:10 AM EST Office Visit [facility] 22 [place] [address] John Hamlin [address] [address] 11/09/2025 8:45 AM EDT Appointment [facility] [address] [address] Leonel Wesley, [address] [address] 11/22/2025 9:00 AM EDT Ancillary Procedure [facility] [address] [place] [address], [address] [address] Leonel Wesley [address] [address] documented as of this encounter Visit Diagnoses Not on filedocumented in this encounter Additional Health Concerns Infection Onset Date Last Indicated Resolved Time CoV-Risk 12/15/2024 12/15/2024 documented as of this encounter Care Teams Telecommunications Analyst Relationship Specialty Start Date End Date Vince Wilcox MD PCP - General Internal Medicine 09/13/20 02/04/24 Vince Wilcox MD [address], [place] [address] PCP - General Internal Medicine 02/05/24 06/02/24 Bhavna Cormier MD 234 [facility], [facility] 7 [place] [address] [email or web address] PCP - General Family Medicine 06/03/24 documented as of this encounter Additional Source Comments The information contained in this document represents components of the legal health record. It is not the complete legal health record.[facility]
--- OUTSIDE RECORDS SUMMARY | 2024-12-23 11:07 | XMS_ITS | Encounter Summary ---
Author Organization [facility] Address 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 Not on fi le Not on file Not on file documented as of this encounter Plan of Treatment Upcoming Encounters Date Type Department Care Team (Latest Contact Info) Description 02/17/2025 10:00 AM EST Office Visit [facility] 234 [place] [address] Bhavna Cormier MD [address] [address] [email or web address] 04/29/2025 10:10 AM EST Office Visit [facility] [address] [place] [address] [place] [address] John Hamlin [address] [address] 11/09/2025 8:45 AM EDT Appointment [facility] [address] [place] [address] Leonel Wesley [address] [address] 11/22/2025 9:00 AM EDT Ancillary Procedure [facility] [address] [place] [address] [place] [address], [address] [place] [address] Leonel Wesley [address] [address] documented as of this encounter Visit Diagnoses Not on filedocumented in this encounter Additional Health Concerns Infection Onset Date Last Indicated Resolved Time CoV-Risk 12/15/2024 12/15/2024 documented as of this encounter Care Teams Semiconductor Lab Technician Relationship Specialty Start Date End Date Vince Wilcox MD PCP - General Internal Medicine 09/13/20 02/04/24 Vince Wilcox MD [address] [address] PCP - General Internal Medicine 02/05/24 06/02/24 Bhavna Cormier MD [address] [place] [address] 7 [place] [address] [email or web address] PCP - General Family Medicine 06/03/24 documented as of this encounter Additional Source Comments The information contained in this document represents components of the legal health record. It is not the complete legal health record.[facility]
== END 2024-12-23 10:05 | disposition home or self-care (01) ==
LOC: HO.HMCH 09:24
PROVIDERS: Visit Provider Internal Medicine
DX: R53.83 Other fatigue (principal)

== ENCOUNTER 2024-12-30 09:31 | Outpatient (AMB) | payer OTHER, SELFPAY ==
--- NOTE | 2024-12-30 09:45 | A.OFFPC_ITS ---
Vital Signs 12/30/24 09:46 Height 5 ft 2.6 in Weight 136 lb 4 oz BMI 24.4 BP 122/68 Blood Pressure Location Lt brachial Position Sitting Pulse 75 Pulse Source Pulse Oximeter Temp 97.3 F Temp Source Temporal Artery Scan Pulse Oximetry (%) 97 Oxygen Delivery Method Room Air Intake Visit Reasons: 1 week f/u Intake Note: Patient is here to follow up on Fatigue. Collections Associate Required: No Stone Polisher Machine: Not Required per policy Accompanied by: Self / Same As Patient Allergies alendronate sodium Adverse Reaction (Mild, Verified 12/30/24 09:46) Difficulty Breathing statin Adverse Reaction (Mild, Uncoded 12/30/24 09:46) Muscle Cramps Tobacco use date assessed: 12/30/24 Fall risk assessment: No Falls in past year Last assessed Fall Risk: 12/30/24 Dental Screening Dental Screen Date: 11/11/24 [facility] Medical History (Updated 12/14/24 @ 08:56 by Tracy [place] NP) Acute respiratory disease Anxiety Paraesophageal hernia Surgical History History of colonoscopy (~07/29/18) S/P appendectomy H/O salpingostomy History of bunionectomy H/O esophageal hernia repair Family History Mother Hemorrhage Type 2 diabetes mellitus Lung cancer Father Prostate cancer Social History Housing: House Patient Tobacco Use Status: Former Tobacco user Tobacco use type: Cigarette e-Cigarette/Vaping Use: Never Used Second Hand Smoke Exposure: Yes service: No Current occupational status: employed 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 [employer] Current occupational exposures/hazards: No Cognitive needs: No Hearing needs: No Vision needs: Yes Questionnaire Thrive Questionnaire Date Thrive assessed: 11/09/24 I am a: Patient What is your living situation today?: I have a steady place to live Within the past 12 months, did the food you bought not last and you didn't have the money to get more?: Never true Within the past 12 months, did you worry whether your food would run out before you got money to buy more?: Never true Do you have trouble paying for medicines?: I choose not to answer this question Do you have trouble getting transportation to medical appointments?: No Do you have trouble paying your heating and electricity bill?: I choose not to answer this question Do you have trouble taking care of your child, family member or friend?: No Do you have trouble with day-to-day activities such as bathing, preparing meals, shopping, managing finances, etc.?: No Are you currently unemployed and looking for a job?: No Are you interested in more education?: Yes Please select the resources that you would like help with: None Currently or been in a relationship where the following occur: No concerns reported THRIVE Score: 0 DIAN-7 AMB Questionnaire DIAN-7 Date DIAN - 7 assessed: 11/11/24 Source: Developed by Drs. Alexis Granger, Dodie Reyes, Mikie Garcia and colleagues, with an educational rocco from [employer]. Physical exam (Primary Care) Vital Signs: Last Vital Signs Temp 97.3 F 12/30/24 09:46 Pulse 75 12/30/24 09:46 BP 122/68 12/30/24 09:46 Pulse Ox 97 12/30/24 09:46 Oxygen Delivery Method Room Air 12/30/24 09:46 BMI result Body Mass Index 24.4 Tobacco/Smoking Status: Tobacco use Status Tobacco use date assessed 12/30/24 12/30/24 09:49 Patient Tobacco Use Status Former Tobacco user 12/30/24 09:45 Tobacco use type Cigarette 12/30/24 09:45 e-Cigarette/Vaping Use Never Used 12/30/24 09:45 Thrive Assessment: Date of Thrive Assessment Date Thrive assessed 11/09/24 12/30/24 09:45 Currently or been in a relationship where the following occur: No concerns reported Coding Level of Care Code Est Pt Level 3 (35774) Complex EM visit Add On G2211 Diagnoses Fatigue R53.83 Assessment & Plan Assessment & Plan (1) Fatigue: Code(s): R53.83 - Other fatigue Plan: History of Present Illness - The patient is a 64-year-old female presenting with follow-up after antibiotic treatment. - Reports improvement post-antibiotic treatment but not fully recovered to baseline. - - History of hiatal hernia surgery, managed with stool softeners. 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 - Exercise: Regular gym attendance, though currently paused to prevent overexertion. Review of Systems - General: Reports feeling better but not at baseline. - Endocrine: Denies thyroid issues. - Gastrointestinal: Denies diarrhea and constipation; uses stool softeners post- hiatal hernia surgery. - Neurological: Reports increased exertional fatigue and sweating. Physical Exam General: Cooperative and healthy appearing Nutritional Appearance: Well nourished Orientation/consciousness: Patient oriented x3 Limitations: No limitations Head: Normal to inspection General: Appearance normal, both eyes and all related structures Neck: Normal visual inspection Chest: Normal palpation of entire chest wall Respiratory: Patient reports getting exerted quicker and sweating profusely af ter work. ormal respiratory effort Neurology: Patient oriented x3 Results - Thyroid function tests: Normal results. Plan - Monitor symptoms of exertional fatigue and sweating; if no improvement, further evaluation may be necessary. - Encourage gradual return to normal activities as tolerated. Overall significant improvement in her general symptoms since last office visit. Discussion Notes I discussed with the patient that her thyroid function is normal and that her symptoms of exertional fatigue and sweating should be monitored. If these symptoms do not improve, further evaluation may be necessary. I advised her to gradually return to normal activities as she feels able. We agreed that she will continue to see her regular provider for ongoing care. Patient Instructions - Monitor your symptoms of fatigue and sweating. If they do not improve, contact your healthcare provider. - Gradually resume normal activities as you feel comfortable.
[2024-12-30 09:46] VITALS: BP 122/68; PULSE 75; TEMP 36.3; O2SAT 97; BMI 24.4
--- OUTSIDE RECORDS SUMMARY | 2024-12-30 10:24 | XMS_ITS | Clinical Summary ---
Author Organization [facility] Address [facility] [address] [address] Phone Care Team Providers Care Chain Maker Name Role Phone Bhavna Cormier MD Primary [...] 50 mg by mouth as needed. 01/16/20 22 Active chlorhexidine (PERIDEX) 0.12 % solution 10/31/19 [...] health. She is scheduled to see the mine environmental engineer for her normal ongoing follow-up and will need a cardiac clearance prior to this procedure anyway. Epigastric pain 01/21/2023 Assessment & Plan (01/21/2023 4:35 PM EDT): This is a 62-year-old woman who has a history of undergoing hiatal hernia repair with partial gastric fundoplication for gastroesophageal reflux disease with Dr. Ribeiro from [facility] in 2020. The patient has developed [...] the documentation that was sent over from [facility] including the endoscopy. Bilateral carotid artery [...] due for repeat DXA scan at a [facility] facility on 10/17/2024 this has been [...] she had the last imaging or which [facility] facility it was done. She believes it was in [place] was not [place]. I will ask my staff to send DXA scan request to [facility]. Addendum: She googled her calcium supplementation [...] use Prolia. Of course she has health [place] insurance and we do have to get [...] insurance company. I will have the medical technologist's wellness and see if we can get [...] 2:33 PM EDT Emergency [facility] [address] [place] [address] Discharge Disposition: Home or Self Care 12/10/2024 Telephone [facility] [address] [place] [address] Hayley Hernandez, wireless field technician Problem (Re: Fosamax) 11/09/2024 9:00 AM EDT Office Visit [facility] [address], [address] [place] [address] Leonel Wesley DO Benign essential hypertension (Primary Dx); Bilateral carotid artery stenosis; Obesity (BMI 30-39.9); Essential familial hypercholesterolemia 11/09/2024 Telephone [facility] [address] [place] [address] Kiana Neal 10/29/2024 Orders Only [facility] [address] [place] [address] John Hamlin DO Other osteoporosis without current pathological fracture (Primary Dx) 10/28/2024 9:26 AM EDT - 10/28/2024 11:59 PM EDT Hospital Encounter [facility] [address] [place] [address] Leonel Wesley DO Discharge Disposition: Home or Self Care 10/27/2024 7:53 AM EDT - 10/27/2024 11:59 PM EDT Hospital Encounter [facility] [address] [place] [address] John Hamlin DO Discharge Disposition: Home or Self Care 10/22/2024 Telephone [facility] [address] [place] [address] John Hamlin DO Medication Prior Authorization (Prolia) [...] Description 02/17/2025 10:00 AM EST Office Visit [facility] [address] [place] [address] Bhavna Cormier MD 234 [facility], [address] [place] [address] [email or web address] 04/29/2025 10:10 AM EST Office Visit [facility] [address] [place] [address] John Hamlin DO 22 [place] [address] 11/09/2025 8:45 AM EDT Appointment [facility] [address] [place] [address] Dr [address] [place] [address] Leonel Wesley, DO [address] [place] [address] [place] [address] 11/22/2025 9:00 AM EDT Office Visit [facility] 22 [facility] 3rd [facility], [address] [place] [address] Leonel Wesley, [address] [address] Health Maintenance Due Date Last Done Comments [...] this topic Medical Devices Implanted Type Area Vegetable Loader Device Identifier Shelf Expiration Date Model / [...] EDT) TSH 2.59 0.27 - 4.20 uIU/mL [facility] Blood 12/15/2024 12:1 3 PM EDT 12/15/2024 12:24 PM EDT us Jazz Paz PA-C LAB BLOOD ORDERABLES Final Result [facility] [address] [place], [place] [id number] * (ABNORMAL) CBC and differential (12/15/2024 12:09 PM EDT) WBC 5.02 4.00 - 11.00 K/uL [facility] RBC 3.98(L) 4.00 - 5.20 M/uL [facility] HGB 11.1(L) 12.0 - 16.0 g/dL [facility] HCT 34.6(L) 36.0 - 46.0 % [facility] PLT 196 150 - 450 K/uL [facility] MCV 86.9 80.0 - 100.0 fL [facility] MCH 27.9 27.0 - 31.0 pg [facility] MCHC 32.1 32.0 - 36.0 g/dL [facility] RDW 15.0(H) 11.5 - 14.5 % [facility] MPV 9.1 8.4 - 12.0 fL [facility] NRBC 0.00 0.00 /100 WBCs [facility] ABSOLUTE NRBC 0.00 0.00 K/uL [facility] DIFF METHOD Manual [facility] TOTAL CELLS COUNTED 100 [facility] NEUTS 38.0(L) 48.0 - 76.0 % [facility] BANDS 1.0 0 - 10 % [facility] LYMPHS 43.0(H) 18.0 - 41.0 % [facility] Comment:Many atypical lymphs present MONOS 11.0 4.0 - 11.0 % [facility] EOS 2.0 0.0 - 5.0 % [facility] BASOS 2.0(H) 0.0 - 1.5 % [facility] MYELOS 2.0(H) 0 % [facility] METAS 1.0(H) 0 % [facility] ABSOLUTE NEUTS 1.96 1.92 - 7.60 K/uL [facility] ABSOLUTE LYMPHS 2.16 0.72 - 4.10 K/uL [facility] ABSOLUTE MONOS 0.55 0.16 - 1.10 K/uL [facility] ABSOLUTE EOS 0.10 0.00 - 0.50 K/uL [facility] ABSOLUTE BASOS 0.10 0.00 - 0.15 K/uL [facility] ABSOLUTE MYELOS 0.10 K/uL [facility] ABSOLUTE METAS 0.05 K/uL [facility] Blood 12/15/2024 12:0 9 PM EDT 12/15/2024 12:24 PM EDT us Valerio Reddy MD LAB BLOOD ORDERAB LES Final Result [facility] [address] [place] [address] * (ABNORMAL) Basic metabolic panel (12/15/2024 12:09 PM EDT) SODIUM 137 133 - 146 mmol/L [facility] CHLORIDE 101 96 - 108 mmol/L [facility] POTASSIUM 3.7 3.3 - 5.1 mmol/L [facility] CO2 26 21 - 35 mmol/L [facility] BUN 6 6 - 19 mg/dL [facility] CREATININE 0.60 0.5 - 1.5 mg/dL [facility] GLUCOSE 115(H) 70 - 99 mg/dL [facility] CALCIUM 9.8 8.4 - 10.3 mg/dL [facility] EGFR 100 >59 mL/min/1.7 3m2 [facility] Comment:Estimated glomerular filtration rate calculated using the CKD-EPI refit equation. ANION GAP 14 10 - 20 mmol/L [facility] Blood 12/15/2024 12:0 9 PM EDT 12/15/2024 12:24 PM EDT us Valerio Reddy MD LAB BLOOD ORDERAB LES Final Result Performing Organization Address City/State/[facility] Co de Phone Number [address] [address] * XR CHEST PA AND LATERAL 2 VIEWS (12/15/2024 12:00 PM EDT) Anatomical Region Laterality Modality Chest Computed Radiogr aphy 12/15/2024 1:28 PM EDT Impressions 12/15/2024 1:28 PM EDT No acute abnormality. Narrative 12/15/2024 1:28 PM EDT XR CHEST PA AND LATERAL 2 VIEWS Referring clinician's provided indication for this examination in [facility]: Dyspnea (Shortness of Breath) COMPARISON: None. FINDINGS: Devices/Tubes/Lines: None. Lungs: No focal consolidation or pulmonary edema. Pleura: No pleural effusion or pneumothorax. Heart/Mediastinum: Normal heart and mediastinum. Bones/Soft Tissues: Degenerative changes of the spine. Procedure Note Madhavi Olivera MD - 12/15/2024 XR CHEST PA AND LATERAL 2 VIEWS Referring clinician's provided indication for this examination in [facility]:Dyspnea (Shortness of Breath) COMPARISON: None. FINDINGS: Devices/Tubes/Lines: [...] BPM [facility] Atrial Rate 82 BPM [facility] SD Interval 146 ms [facility] QRS Duration 82 ms [facility] QT Interval 366 ms [facility] QTC Interval 427 ms [facility] P [place] 44 degrees [facility] R Wave [place] 15 degrees [facility] T Wave [place] 38 degrees [facility] 12/15/2024 11:4 5 AM [...] EDT) SODIUM 141 133 - 146 mmol/L [facility] POTASSIUM 4.4 3.3 - 5.1 mmol/L [facility] CHLORIDE 103 96 - 108 mmol/L [facility] CO2 29 21 - 35 mmol/L [facility] GLUCOSE 109(H) 70 - 99 mg/dL [facility] BUN 10 6 - 19 mg/dL [facility] CREATININE 0.70 0.5 - 1.5 mg/dL [facility] CALCIUM 10.1 8.4 - 10.3 mg/dL [facility] PHOSPHORUS 3.4 2.7 - 4.5 mg/dL [facility] ALBUMIN 4.3 3.9 - 4.8 g/dL [facility] EGFR 96 >59 mL/min/1.7 3m2 [facility] Comment:Estimated glomerular filtration rate calculated using the CKD-EPI refit equation. ANION GAP 13 10 - 20 mmol/L [facility] Blood 10/27/2024 8:04 AM EDT 10/27/2024 8:06 AM EDT us John Hamlin DO LAB BLOOD ORDERABLES Final Resul t [facility] [address] [place] [address] * DXA Monitoring (10/21/2024 9:50 AM EDT) Anatomical Region Laterality Modality Bone Density Bone Density Boubacar IMG BD BONE DENSITY DEXA Final R esult from Last 3 Months Insurance [employer] PPO MEDICARE REPLACEMENT AETNA O MEDICARE REPLACEMENT AETNA PPO MEDICARE REPLACEMENT AETNA O MEDICARE REPLACEMENT AETNA O MEDICARE REPLACEMENT AETNA O MEDICARE REPLACEMENT Advance Directives For more information, please contact: [phone] (9AM - 5PM Angie/[facility], Saturday-Saturday) Documents on File Type Date Recorded Patient Medical Program Specialist Expl anation Healthcare Proxy 01/30/2024 * Full Code (Latest Code Status on File) Date Activated Date Inactivated Comments 01/30/2024 6:43 AM Question Answer Comments Code Status Confirmed With: Patient Care Teams Chain Maker Relationship Specialty Start Date End Date Bhavna Cormier MD [email or web address] PCP - General Family Medicine 06/03/24 Additional Source Comments The information contained in this document represents components of the legal health record. It is not the complete legal health record.[facility]
--- OUTSIDE RECORDS SUMMARY | 2024-12-30 10:24 | XMS_ITS | Encounter Summary ---
Author Organization [facility] Address [facility] [address] [place] [address] Phone Care Team Providers Care Applications Trainer Name Role Phone Vince Wilcox MD Primary Care Provider + [phone] Vince Wilcox MD Primary Care Provider [phone] Bhavna Cormier MD Primary Care Provider Encounter Details Date Type Department Care Team (Late st Contact Info) Description 01/24/2021 Procedure Pass [facility] Endoscopy Admitting Dept Virtual Department 30 [place] [address] Social History Tobacco Use Types Packs/Day Years [...] Description 02/17/2025 10:00 AM EST Office Visit [facility] [address] [place] [address] Bhavna Cormier MD [address] [place] [address] 7 [place] [address] [email or web address] 04/29/2025 10:10 AM EST Office Visit [facility] [address] [place] [address] John Hamlin [address] [address] 11/09/2025 8:45 AM EDT Appointment [facility] [place] [address] [place] [address] Leonel Wesley, [address] [address] 11/22/2025 9:00 AM EDT Office Visit [facility] [address] [place] [address], [address] [place] [address] Leonel Wesley [address] [address] documented as of this encounter Visit Diagnoses Not on filedocumented in this encounter Additional Health Concerns Infection Onset Date Last Indicated Resolved Time CoV-Risk 12/15/2024 12/15/2024 12/26/2024 1:21 AM EDT documented as of this encounter Care Teams Applications Trainer Relationship Specialty Start Date End Date Vince Wilcox MD PCP - General Internal Medicine 09/13/20 02/04/24 Vince Wilcox MD [facility] [address] PCP - General Internal Medicine 02/05/24 06/02/24 Bhavna Cormier MD [address], [place] [address] [email or web address] PCP - General Family Medicine 06/03/24 documented as of this encounter Additional Source Comments The information contained in this document represents components of the legal health record. It is not the complete legal health record.[facility]
--- OUTSIDE RECORDS SUMMARY | 2024-12-30 10:24 | XMS_ITS | Encounter Summary ---
Author Organization [facility] Address [facility] [address] [place] [address] Phone Care Team Providers Care Front End Driver Name Role Phone Vince Wilcox MD Primary Care Provider + [phone] Vince Wilcox MD Primary Care Provider [phone] Bhavna Cormier MD Primary Care Provider Encounter Details Date Type Department Care Team (Late st Contact Info) Description 12/30/2020 Procedure Pass [facility] Endoscopy Admitting Dept Virtual Department 30 [place] [address] Social History Tobacco Use Types Packs/Day Years [...] Description 02/17/2025 10:00 AM EST Office Visit [facility] [address] [place] [address] Bhavna Cormier MD [address] [place] [address] 7 [place] [address] [email or web address] 04/29/2025 10:10 AM EST Office Visit [facility] [address] [place] [address] John Hamlin [address] [address] 11/09/2025 8:45 AM EDT Appointment [facility] [place] [address] [place] [address] Leonel Wesley, [address] [address] 11/22/2025 9:00 AM EDT Office Visit [facility] [address] [place] [address], [address] [place] [address] Leonel Wesley [address] [address] documented as of this encounter Visit Diagnoses Not on filedocumented in this encounter Additional Health Concerns Infection Onset Date Last Indicated Resolved Time CoV-Risk 12/15/2024 12/15/2024 12/26/2024 1:21 AM EDT documented as of this encounter Care Teams Front End Driver Relationship Specialty Start Date End Date Vince Wilcox MD PCP - General Internal Medicine 09/13/20 02/04/24 Vince Wilcox MD [facility] [address] PCP - General Internal Medicine 02/05/24 06/02/24 Bhavna Cormier MD [address] [address] [email or web address] PCP - General Family Medicine 06/03/24 documented as of this encounter Additional Source Comments The information contained in this document represents components of the legal health record. It is not the complete legal health record.[facility]
--- OUTSIDE RECORDS SUMMARY | 2024-12-30 10:25 | XMS_ITS | Encounter Summary ---
Author Organization [facility] Address [facility] [place] [facility] ([place], [place]) [address] [place] [address] Phone Care Team Providers Care Metal Punch Press Operator Name Role Phone Vince Wilcox MD Primary Care Provider + [phone] Vince Wilcox MD Primary Care Provider [phone] Bhavna Cormier MD Primary Care Provider Encounter Details Date Type Department Care Team (Late st Contact Info) Description 02/21/2021 Procedure Pass [facility] Endoscopy Admitting Dept Virtual Department 30 [place] [address] Social History Tobacco Use Types Packs/Day Years [...] Visit [facility] [address] [place] [address] Bhavna Cormier MD [address] [place] [address] 7 [place] [address] [email or web address] 04/29/2025 10:10 AM EST Office Visit [facility] [address] [place] [address] John Hamlin [address] [address] 11/09/2025 8:45 AM EDT Appointment [facility] [place] [address] [place] [address] Leonel Wesley, [address] [address] 11/22/2025 9:00 AM EDT Office Visit [facility] [address] [place] [address], [address] [place] [address] Leonel Wesley [address] [address] documented as of this encounter Visit Diagnoses Not on filedocumented in this encounter Additional Health Concerns Infection Onset Date Last Indicated Resolved Time CoV-Risk 12/15/2024 12/15/2024 12/26/2024 1:21 AM EDT documented as of this encounter Care Teams Metal Punch Press Operator Relationship Specialty Start Date End Date Vinec Wilcox MD PCP - General Internal Medicine 09/13/20 02/04/24 Vince Wilcox MD [facility] [address] PCP - General Internal Medicine 02/05/24 06/02/24 Bhavna Cormier MD [address] [address] [email or web address] PCP - General Family Medicine 06/03/24 documented as of this encounter Additional Source Comments The information contained in this document represents components of the legal health record. It is not the complete legal health record.[facility]
--- OUTSIDE RECORDS SUMMARY | 2024-12-30 10:25 | XMS_ITS | Encounter Summary ---
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 Not on file Not on file documented as of this encounter Plan of Treatment Upcoming Encounters Date Type Department Care Team ([facility] st Contact Info) Description 02/17/2025 10:00 AM EST Office Visit [facility] [address] [place] [address] Bhavna Cormier MD 234 [facility] 7 [place] [address] [email or web address] 04/29/2025 10:10 AM EST Office Visit [facility] [address] [place] [address] John Hamlin [address] [address] 11/09/2025 8:45 AM EDT Appointment [facility] [place] [address] [place] [address] Leonel Wesley, [address] [place] [address] 11/22/2025 9:00 AM EDT Office Visit [facility] [address] [place] [address] [place] [address], [address] [place] [address] Leonel Wesley [address] [address] documented as of this encounter Visit Diagnoses Not on filedocumented in this encounter Additional Health Concerns Infection Onset Date Last Indicated Resolved Time CoV-Risk 12/15/2024 12/15/2024 12/26/2024 1:21 AM EDT documented as of this encounter Care Teams Lead Installer Relationship Specialty Start Date End Date Vince Wilcox MD PCP - General Internal Medicine 09/13/20 02/04/24 Vince Wilcox MD [address] [address] PCP - General Internal Medicine 02/05/24 06/02/24 Bhavna Cormier MD [address] [address] [email or web address] PCP - General Family Medicine 06/03/24 documented as of this encounter Additional Source Comments The information contained in this document represents components of the legal health record. It is not the complete legal health record.[facility]
--- OUTSIDE RECORDS SUMMARY | 2024-12-30 10:25 | XMS_ITS | Encounter Summary ---
Author Organization [facility] Address [facility] [address] [place] [address] Phone Care Team Providers Care Vascular Sonographer Name Role Phone Vince Wilcox MD Primary Care Provider [phone] Vince Wilcox MD Primary Care Provider [phone] Bhavna Cormier MD Primary Care Provider [phone] Encounter Details Date Type Department Care Team (Late st Contact Info) Description 10/31/2020 Procedure Pass [facility] [address] [place] [address] Social History Tobacco Use Types Packs/Day Years [...] Description 02/17/2025 10:00 AM EST Office Visit [facility] [address] [place] [address] Bhavna Cormier MD [address] [facility], [address] [place], [place] [id number] [email or web address] 04/29/2025 10:10 AM EST Office Visit [facility] [address] [place] [address] John Hamlin [address] [address] 11/09/2025 8:45 AM EDT Appointment [facility] [address] [place] [address] Leonel Wesley, DO [address] [place] [address] [place] [address] 11/22/2025 9:00 AM EDT Office Visit [facility] [address], [address] [address] Leonel Wesley [address] [address] [email or web address] documented as of this encounter Visit Diagnoses Not on filedocumented in this encounter Additional Health Concerns Infection Onset Date Last Indicated Resolved Time CoV-Risk 12/15/2024 12/15/2024 12/26/2024 1:21 AM EDT documented as of this encounter Care Teams Vascular Sonographer Relationship Specialty Start Date End Date Vince Wilcox MD PCP - General Internal Medicine 09/13/20 02/04/24 Vince Wilcox MD [address] [place] [address] PCP - General Internal Medicine 02/05/24 06/02/24 Bhavna Cormier MD [address] [place] [address] [email or web address] PCP - General Family Medicine 06/03/24 documented as of this encounter Additional Source Comments The information contained in this document represents components of the legal health record. It is not the complete legal health record.[facility]
--- OUTSIDE RECORDS SUMMARY | 2024-12-30 10:25 | XMS_ITS | Encounter Summary ---
Author Organization [facility] Address [address] [place] [address] Phone Care Team Providers Care Shell Coremaker Name Role Phone Vince Wilcox MD Primary Care Provider [phone] Vince Wilcox MD Primary Care Provider [phone] Bhavna Cormier MD Primary Care Provider Encounter Details Date Type Department Care Team (Late st Contact Info) Description 10/07/2020 Ancillary Orders Virtual Department 30 [place] [address] Dodie Norman NP 10 [place] [address] Dysphagia, unspecified type Social History Tobacco Use [...] EST Office Visit [facility] 234 [place] [address] Bhavna Cormier MD 234 [facility], [address] [place] [address] [email or web address] 04/29/2025 10:10 AM EST Office Visit [facility] [address] [place] [address] [place] [address] John Hamlin [address] [address] 11/09/2025 8:45 AM EDT Appointment [facility] [address] [place] [address] Leonel Wesley, [address] [place] [address] 11/22/2025 9:00 AM EDT Office Visit [facility] [address] [place] [address], [address] [place] [address] Leonel Wesley [address] [place] [address] documented as of this encounter Results * [...] hiatal hernia. Dodie Norman NP [facility] Final Res ult documented in this encounter Visit Diagnoses Diagnosis Dysphagia, unspecified type Dysphagia, unspecified type documented in this encounter Additional Health Concerns Infection Onset Date Last Indicated Resolved Time CoV-Risk 12/15/2024 12/15/2024 12/26/2024 1:21 AM EDT documented as of this encounter Care Teams Shell Coremaker Relationship Specialty Start Date End Date Vince Wilcox MD PCP - General Internal Medicine 09/13/20 02/04/24 Vince Wilcox MD [address] [place] [address] PCP - General Internal Medicine 02/05/24 06/02/24 Bhavna Cormier MD [address] [place] [address] [email or web address] PCP - General Family Medicine 06/03/24 documented as of this encounter Additional Source Comments The information contained in this document represents components of the legal health record. It is not the complete legal health record.[facility]
--- OUTSIDE RECORDS SUMMARY | 2024-12-30 10:25 | XMS_ITS | Encounter Summary ---
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 on file Not on file documented as of this encounter Plan of Treatment Upcoming Encounters Date Type Department Care Team (Late st Contact Info) Description 02/17/2025 10:00 AM EST Office Visit [facility] 234 [place] [address] Bhavna Cormier MD [address] [address] CAROL@[email or web address] .[email or web address].[facility] 04/29/2025 10:10 AM EST Office Visit [facility] [address] [place] [address] [place] [address] John Hamlin [address] [address] 11/09/2025 8:45 AM EDT Appointment [facility] [place] [address] Mary Hunter [address] [place] [address] Leonel Wesley, [address] [address] 11/22/2025 9:00 AM EDT Office Visit [facility] [address] [place] [address], [address] [place] [address] Leonel Wesley [address] [address] documented as of this encounter Visit Diagnoses Not on filedocumented in this encounter Additional Health Concerns Infection Onset Date Last Indicated Resolved Time CoV-Risk 12/15/2024 12/15/202412/2612/26/2024 1:21 AM EDT documented as of this encounter Care Teams Hired Help Relationship Specialty Start Date End Date Vince Wilcox MD PCP - General Internal Medicine 09/13/20 02/04/24 Vince Wilcox MD [address] [place] [address] PCP - General Internal Medicine 02/05/24 06/02/24 Bhavna Cormier MD [address] [place] [address] [email or web address] PCP - General Family Medicine 06/03/24 documented as of this encounter Additional Source Comments The information contained in this document represents components of the legal health record. It is not the complete legal health record.[facility]
--- OUTSIDE RECORDS SUMMARY | 2024-12-30 10:25 | XMS_ITS | Encounter Summary ---
Author Organization 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 7 [place] [address] CAROL@[email or web address] 04/29/2025 10:10 AM EST Office Visit [facility] [address] [place] [address] John Hamlin [address] [address] 11/09/2025 8:45 AM EDT Appointment [facility] [place] [address] [place] [address] [place] [address] Leonel Wesley, [address] [place] [address] 11/22/2025 9:00 AM EDT Office Visit [facility] [address] [place] [address] [place] [address], [address] [place] [address] Leonel Wesley [address] [address] documented as of this encounter Visit Diagnoses Not on filedocumented in this encounter Additional Health Concerns Infection Onset Date Last Indicated Resolved Time CoV-Risk 12/15/2024 12/15/2024 12/26/2024 1:21 AM EDT documented as of this encounter Care Teams Psychiatric Mental Health Nurse Relationship Specialty Start Date End Date Vince Wilcox MD PCP - General Internal Medicine 09/13/20 02/04/24 Vince Wilcox MD [address] [address] PCP - General Internal Medicine 02/05/24 06/02/24 Bhavna Cormier MD [address] [address] CAROL@[email or web address] PCP - General Family Medicine 06/03/24 documented as of this encounter Additional Source Comments The information contained in this document represents components of the legal health record. It is not the complete legal health record.[facility]
--- OUTSIDE RECORDS SUMMARY | 2024-12-30 10:25 | XMS_ITS | Encounter Summary ---
Author Organization 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 .[email or web address].[email or web address] 04/29/2025 10:10 AM EST Office Visit [facility] [address] [place] [address] John Hamlin [address] [address] 11/09/2025 8:45 AM EDT Appointment [facility] [place] [address] [place] [address] Leonel Wesley, [address] [place] [address] 11/22/2025 9:00 AM EDT Office Visit [facility] [address] [place] [address] [place] [address], [address] [place] [address] Leonel Wesley [address] [address] documented as of this encounter Visit Diagnoses Not on filedocumented in this encounter Additional Health Concerns Infection Onset Date Last Indicated Resolved Time CoV-Risk 12/15/2024 12/15/2024 12/26/2024 1:21 AM EDT documented as of this encounter Care Teams Electronic Assembly Relationship Specialty Start Date End Date Vince Wilcox MD PCP - General Internal Medicine 09/13/20 02/04/24 Vince Wilcox MD [address] [address] PCP - General Internal Medicine 02/05/24 06/02/24 Bhavna Cormier MD [address] [address] [email or web address] PCP - General Family Medicine 06/03/24 documented as of this encounter Additional Source Comments The information contained in this document represents components of the legal health record. It is not the complete legal health record.[facility]
--- OUTSIDE RECORDS SUMMARY | 2024-12-30 10:25 | XMS_ITS | Encounter Summary ---
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 on file Not on file documented as of this encounter Plan of Treatment Upcoming Encounters Date Type Department Care Team (Late st Contact Info) Description 02/17/2025 10:00 AM EST Office Visit [facility] 234 [place] [address] Bhavna Cormier MD 234 [facility] 7 [place] [address] CAROL@[email or web address] .[email or web address] 04/29/2025 10:10 AM EST Office Visit [facility] [address] [place] [address] John Hamlin [address] [address] 11/09/2025 8:45 AM EDT Appointment [facility] [address] [place] [address] Leonel Wesley [address] [place] [address] 11/22/2025 9:00 AM EDT Office Visit [facility] [address] [facility], [address] [place] [address] Leonel Wesley [address] [address] documented as of this encounter Results * [...] clinician's provided indication for this examination in [facility]: Outside Radiology Order; lesion on ovary [...] clinician's provided indication for this examination in [facility]:Outside Radiology Order; lesion on ovary TECHNIQUE: [...] documented as of this encounter Care Teams Feather Cutting Machine Feeder Relationship Specialty Start Date End Date Vince Wilcox MD PCP - General Internal Medicine 09/13/20 02/04/24 Vince Wilcox MD [address] [place] [address] PCP - General Internal Medicine 02/05/24 06/02/24 Bhavna Cormier MD [address] [place] [address] CAROL@[email or web address] PCP - General Family Medicine 06/03/24 documented as of this encounter Additional Source Comments The information contained in this document represents components of the legal health record. It is not the complete legal health record.[facility]
--- OUTSIDE RECORDS SUMMARY | 2024-12-30 10:25 | XMS_ITS | Encounter Summary ---
Author Organization [facility] Address [address] [place] [address] [place] [address] Phone Care Team Providers Care Field Pipe Lines Supervisor Name Role Phone Vince Wilcox MD Primary Care Provider [phone] Vince Wilcox MD Primary Care Provider Bhavna Cormier MD Primary Care Provider Encounter Details Date Type Department Care Team (Latest Contact Info) Description 01/02/2023 Transcribe Orders Virtual Department 30 [place] [address] Estuardo Olea MD [address] [place] [address] [email or web address] Dysphagia, unspecified type (Primary Dx) Social History [...] Office Visit [facility] 234 [place] [address] Bhavna Cormier MD 234 [facility] 7 [place] [address] CAROL@[email or web address] 04/29/2025 10:10 AM EST Office Visit [facility] [address] [place] [address] John Hamlin [address] [address] 11/09/2025 8:45 AM EDT Appointment [facility] [address] [place] [address] Leonel Wesley [address] [address] 11/22/2025 9:00 AM EDT Office Visit [facility] [address] [facility], [address] [place] [address] Leonel Wesley [address] [address] documented as of this encounter Results * [...] originally createdby Nathaniel Serrano. Estuardo Olea MD [facility] Final Result documented in this encounter Visit Diagnoses Diagnosis Dysphagia, unspecified type- Primary Dysphagia, unspecified type documented in this encounter Additional Health Concerns Infection Onset Date Last Indicated Resolved Time CoV-Risk 12/15/2024 12/15/2024 12/26/2024 1:21 AM EDT documented as of this encounter Care Teams Field Pipe Lines Supervisor Relationship Specialty Start Date End Date Vince Wilcox MD PCP - General Internal Medicine 09/13/20 02/04/24 Vince Wilcox MD [address] [place] [address] PCP - General Internal Medicine 02/05/24 06/02/24 Bhavna Cormier MD [address] [place] [address] CAROL@[email or web address] PCP - General Family Medicine 06/03/24 documented as of this encounter Additional Source Comments The information contained in this document represents components of the legal health record. It is not the complete legal health record.[facility]
--- OUTSIDE RECORDS SUMMARY | 2024-12-30 10:25 | XMS_ITS | Encounter Summary ---
Author Organization [facility] Address [address] [place] [address] Phone Care Team Providers Care Fitter Mechanic Name Role Phone Vince Wilcox MD Primary Care Provider [phone] Vince Wilcox MD Primary Care Provider [phone] Bhavna Cormier MD Primary Care Provider Reason for Referral * MRI/CAT Scan - Closed Specialty Diagnoses / Procedures Referred By Michael wilson Referred To Contact Radiology Diagnoses Abdominal pain, unspecified abdominal location Procedures CT Abdomen/Pelvis CHG CT SCAN,ABDOMENT AND PELVIS,W CONTRAST Arleth Redd PA 10 [place] [address] Phone: tel: fax: Referral ID Status Reason Start Date Expiration Date Visits Re quested Visits Authorized [id number] Closed 05/01/2023 06/30/2023 1 1 Encounter Details Date Type Department Care Team (Latest Contact Info) Description 05/01/2023 Transcribe Orders Virtual Department 30 [place] [address] Arleth Redd PA 10 [place] [address] Abdominal pain, unspecified abdominal location (Primary Dx) [...] 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 7 [place] [address] CAROL@[email or web address] .[email or web address] 04/29/2025 10:10 AM EST Office Visit [facility] [address] [place] [address] John Hamlin [address] [address] 11/09/2025 8:45 AM EDT Appointment [facility] [address] 3rd [place] [address] Leonel Wesley, DO 22 [facility] [address] [place] [address] [email or web address] 11/22/2025 9:00 AM EDT Office Visit [facility] [address] Floor, [address] [place] [address] Leonel Wesley, DO 22 [facility] [address] [place] [address] [email or web address] documented as of this encounter Results * [...] documented as of this encounter Care Teams Fitter Mechanic Relationship Specialty Start Date End Date Vince Wilcox MD PCP - General Internal Medicine 09/13/20 02/04/24 [place] [address] [place] [address] PCP - General Internal Medicine 02/05/24 06/02/24 Bhavna Cormier MD [address] [place] [address] CAROL@[email or web address] PCP - General Family Medicine 06/03/24 documented as of this encounter Additional Source Comments The information contained in this document represents components of the legal health record. It is not the complete legal health record.[facility]
--- OUTSIDE RECORDS SUMMARY | 2024-12-30 10:25 | XMS_ITS | Encounter Summary ---
Author Organization [facility] Address [address] [place] [address] Phone Care Team Providers Care Track Mechanic Name Role Phone Vince Wilcox MD Primary Care Provider [phone] Vince Wilcox MD Primary Care Provider Bhavna Cormier MD Primary Care Provider Encounter Details Date Type Department Care Team (Latest Contact Info) Description 09/14/2020 Transcribe Orders Virtual Department 30 [place] [address] Dodie Norman NP 10 [place] [address] Dysphagia, pharyngoesophageal phase (Primary Dx) Social History [...] Description 02/17/2025 10:00 AM EST Office Visit [facility] 234 [place], [place] [phone] Bhavna Cormier MD [address] [place] [address], [address] [place] [address] [email or web address] 04/29/2025 10:10 AM EST Office Visit [facility] [address] [place] [address] [place] [address] John Hamlin [address] [address] 11/09/2025 8:45 AM EDT Appointment [facility] [place] [place] [address] Leonel Wesley, [address] [place] [address] 11/22/2025 9:00 AM EDT Office Visit [facility] [address] [place] [address] [address] [facility], [address] [place] [address] Leonel Wesley, [address] [place] [address] [email or web address] documented as of this encounter Visit Diagnoses Diagnosis Dysphagia, pharyngoesophageal phase- Primary documented in this encounter Additional Health Concerns Infection Onset Date Last Indicated Resolved Time CoV-Risk 12/15/2024 12/15/2024 12/26/2024 1:21 AM EDT documented as of this encounter Care Teams Track Mechanic Relationship Specialty Start Date End Date Vince Wilcox MD PCP - General Internal Medicine 09/13/20 02/04/24 Vince Wilcox MD [address] [place] [address] PCP - General Internal Medicine 02/05/24 06/02/24 Bhavna Cormier MD [address] [place] [address] [email or web address] PCP - General Family Medicine 06/03/24 documented as of this encounter Additional Source Comments The information contained in this document represents components of the legal health record. It is not the complete legal health record.[facility]
--- OUTSIDE RECORDS SUMMARY | 2024-12-30 10:25 | XMS_ITS | Encounter Summary ---
Author Organization [facility] Address [address] [place] [address] Phone Care Team Providers Care Optical Mechanic Apprentice Name Role Phone Vince Wilcox MD Primary Care Provider + [phone] Vince Wilcox MD Primary Care Provider [phone] Bhavna Cormier MD Primary Care Provider [phone] Encounter Details Date Type Department Care Team (Late st Contact Info) Description 01/30/2024 Procedure Pass [place] Admitting Dept - Virtual Department 30 [place], [place] [id number] Social History Tobacco Use Types Packs/Day Years [...] AM EST Office Visit [facility] 234 [place] [address] Bhavna Cormier MD 234 [facility] 7 [place] [address] CAROL@[email or web address] .[email or web address] 04/29/2025 10:10 AM EST Office Visit [facility] [place] [address] John Hamlin [address] [address] 11/09/2025 8:45 AM EDT Appointment [facility] [place] [address] [place] [address] Leonel Wesley, 22 [facility] [address] [place] [address] 11/22/2025 9:00 AM EDT Office Visit [facility] [address] [place] [address] [facility], [address] [place] [address] NancieLeonel minor, DO 22 [facility] [address] [place] [address] [email or web address] documented as of this encounter Visit Diagnoses Not on filedocumented in this encounter Additional Health Concerns Infection Onset Date Last Indicated Resolved Time CoV-Risk 12/15/2024 12/15/2024 12/26/2024 1:21 AM EDT documented as of this encounter Care Teams Optical Mechanic Apprentice Relationship Specialty Start Date End Date Vince Wilcox MD PCP - General Internal Medicine 09/13/20 02/04/24 Vince Wilcox MD [address] [place] [address] PCP - General Internal Medicine 02/05/24 06/02/24 Bhavna Cormier MD [facility] [place] [address] [email or web address] PCP - General Family Medicine 06/03/24 documented as of this encounter Additional Source Comments The information contained in this document represents components of the legal health record. It is not the complete legal health record.[facility]
--- OUTSIDE RECORDS SUMMARY | 2024-12-30 10:25 | XMS_ITS | Encounter Summary ---
Author Organization Located Within [facility] Address [address] [place] [address] [place] [address] Phone Care Team Providers Care Natural Foods Clerk Name Role Phone Vince Wilcox MD Primary Care Provider + [phone] Vince Wilcox MD Primary Care Provider [phone] Bhavna Cormier MD Primary Care Provider [phone] Encounter Details Date Type Department Care Team (Late st Contact Info) Description 05/01/2023 Procedure Pass [facility], Ct Scan - [address] [address] Social History Tobacco Use Types Packs/Day Years [...] Industry 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 Not on file Not on file documented as of this encounter Plan of Treatment Upcoming Encounters Date Type Department Care Team (Late st Contact Info) Description 02/17/2025 10:00 AM EST Office Visit [facility] [address] [place] [address] Bhavna Cormier MD 234 [facility] 7 [place] [address] [email or web address] 04/29/2025 10:10 AM EST Office Visit [facility] [address] [place] [address] John Hamlin [address] [address] 11/09/2025 8:45 AM EDT Appointment [facility] [address] [place] [address] Leonel Wesley, [address] [address] 11/22/2025 9:00 AM EDT Office Visit [facility] [address] [place] [address] 3rd [facility], [address] [place] [address] Leonel Wesley [address] [address] documented as of this encounter Visit Diagnoses Not on filedocumented in this encounter Additional Health Concerns Infection Onset Date Last Indicated Resolved Time CoV-Risk 12/15/2024 12/15/2024 12/26/2024 1:21 AM EDT documented as of this encounter Care Teams Natural Foods Clerk Relationship Specialty Start Date End Date Vince Wilcox MD PCP - General Internal Medicine 09/13/20 02/04/24 Vince Wilcox MD [address] [place] [address] PCP - General Internal Medicine 02/05/24 06/02/24 Bhavna Cormier MD [address] [address] [email or web address] PCP - General Family Medicine 06/03/24 documented as of this encounter Additional Source Comments The information contained in this document represents components of the legal health record. It is not the complete legal health record.[facility]
--- OUTSIDE RECORDS SUMMARY | 2024-12-30 10:25 | XMS_ITS | Encounter Summary ---
Author Organization [facility] Address [address] [place] [address] Phone Care Team Providers Care Blow Molding Machine Tender Name Role Phone Vince Wilcox MD Primary Care Provider [phone] Vince Wilcox MD Primary Care Provider [phone] Bhavna Cormier MD Primary Care Provider [phone] Reason for Referral * MRI/CAT Scan - Closed Specialty Diagnoses / Procedures Referred By Michael wilsno Referred To Contact Radiology Diagnoses Dilated bile duct Procedures MRI Cholangiopancreatography (MRCP) CHG MRI, ABDOMEN, COMBO Arleth Redd PA [address] [place] [address] Phone: tel: fax: Referral ID Status Reason Start Date Expiration Date Visits Re quested Visits Authorized [id number] Closed 06/17/2023 08/16/2023 1 1 Encounter Details Date Type Department Care Team (Latest Contact Info) Description 06/27/2023 Transcribe Orders Virtual Department [address] [place] [address] Arleth Redd PA [address] [place], [place] [phone] Dilated bile duct (Primary Dx) Social History [...] Industry 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 Not on file Not on file documented as of this encounter Plan of Treatment Upcoming Encounters Date Type Department Care Team (Late st Contact Info) Description 02/17/2025 10:00 AM EST Office Visit [facility] [address] [place] [address] Bhavna Cormier MD 234 [facility] 7 [place] [address] [email or web address] 04/29/2025 10:10 AM EST Office Visit [facility] [address] [place] [address] John Hamlin [address] [place] [address] 11/09/2025 8:45 AM EDT Appointment [facility] Mary [address] [place] [address] 3rd [place] [address] Leonel Wesley, [address] [place] [address] [email or web address] 11/22/2025 9:00 AM EDT Office Visit [facility] 22 [facility] 3rd Floor, [address] [place] [address] Leonel Wesley, 22 [facility] [address] [place] [address] [email or web address] documented as of this encounter Results * [...] documented as of this encounter Care Teams Blow Molding Machine Tender Relationship Specialty Start Date End Date Vince Wilcox MD PCP - General Internal Medicine 09/13/20 02/04/24 Vince Wilcox MD [address] [place] [address] PCP - General Internal Medicine 02/05/24 06/02/24 Bhavna Cormier MD [address] [place] [address] [email or web address] PCP - General Family Medicine 06/03/24 documented as of this encounter Additional Source Comments The information contained in this document represents components of the legal health record. It is not the complete legal health record.[facility]
--- OUTSIDE RECORDS SUMMARY | 2024-12-30 10:25 | XMS_ITS | Encounter Summary ---
Author Organization [facility] Address [address] [place] [address] [place] [address] Phone Care Team Providers Care Chucking Machine Set Up Operator Tool Name Role Phone Bhavna Cormier MD Primary Care Provider Encounter Details Date Type Department Care Team (Late st Contact Info) Description 11/09/2024 Telephone [facility] [address] [place] [address] [email or web address] Social History Tobacco Use Types Packs/Day [...] Industry 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 Job End Date 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 Please contact and advise. Central Support Waxer Tender (Please do not reply to this user; this inbox is not monitored.) Thank you. documented in this encounter Plan of Treatment Upcoming Encounters Date Type Department Care Team (Late st Contact Info) Description 02/17/2025 10:00 AM EST Office Visit [facility] [address] [place] [address] Bhavna Cormier MD 234 [facility] [address] [place] [address] [email or web address] 04/29/2025 10:10 AM EST Office Visit [facility] [address] [place] [address] John Hamlin DO [address] [place] [address] 11/09/2025 8:45 AM EDT Appointment [facility] [address] 3rd [place] [address] Leonel Wesley, DO 22 [facility] [address] [place] [address] 11/22/2025 9:00 AM EDT Office Visit [facility] [address] 3rd Floor, [address] [place] [address] Leonel Wesley, DO 22 [facility] [address] [place] [address] [email or web address] documented as of this encounter Visit Diagnoses Not on filedocumented in this encounter Additional Health Concerns Infection Onset Date Last Indicated Resolved Time CoV-Risk 12/15/2024 12/15/2024 12/26/2024 1:21 AM EDT documented as of this encounter Care Teams Chucking Machine Set Up Operator Tool Relationship Specialty Start Date End Date Bhavna Cormier MD [email or web address] PCP - General Family Medicine 06/03/24 documented as of this encounter Additional Source Comments The information contained in this document represents components of the legal health record. It is not the complete legal health record.[facility]
== END 2024-12-30 12:40 | disposition home or self-care (01) ==
LOC: HO.HMCH 09:32
PROVIDERS: Visit Provider Internal Medicine
DX: R53.83 Other fatigue (principal)

== ENCOUNTER 2025-01-07 08:05 | Outpatient (REF) | payer MEDICARE, SELFPAY ==
[2025-01-07 09:59] LABS: MANUAL DIFF FLAG NO
[2025-01-07 10:01] LABS: Hematocrit 34.6 % (37.0-47.0); Hemoglobin 11.3 g/dl (12.0-16.0); Imm Gran Abs Auto 0.02 X10*3/uL (0.00-0.03); Imm Gran Pct Auto 0.4 % (0.0-0.4); Lymphocytes Absolute Auto 2.1 X10*3/uL (1.2-4.9); Mean Corpuscular HGB Conc 32.7 g/dl (31.0-35.0); Mean Corpuscular Hemoglobin 28.3 pg (27.0-33.0); Mean Corpuscular Volume 86.5 fL (80.0-98.0); NRBC Abs Auto 0.000 X10*3/uL (0.0-0.012); NRBC Pct Auto 0.0 /100WBC (0.0-0.2); Platelet Count 308 X10*3/uL (160-400); Red Blood Count 4.00 X10*6/uL (4.20-5.50); White Blood Count 4.5 X10*3/uL (4.8-10.8)
[2025-01-07 10:20] LABS: Alanine Aminotransferase 23 U/L (0-31); Albumin Level 4.0 g/dL (3.5-5.0); Alkaline Phosphatase 85 U/L (39-117); Aspartate Amino Transferase 38 U/L (5-31); Total Protein 6.7 g/dL (6.5-8.0)
== END 2025-01-07 08:06 | disposition home or self-care (01) ==
LOC: HO.HMGCLDS 08:05
PROVIDERS: Visit Provider Internal Medicine
DX: Z00.00 Encounter for general adult medical examination without abnormal findings (principal); K27.9 Peptic ulcer, site unspecified, unspecified as acute or chronic, without hemorrhage or perforation; K75.9 Inflammatory liver disease, unspecified
CPT/HCPCS: 36415; 80076; 85025; 86140

== ENCOUNTER 2025-03-27 12:54 | Outpatient (REF) | payer MEDICARE, SELFPAY ==
[2025-03-27 16:04] LABS: Resp Syncy Virus RNA Qual PCR NEGATIVE (Negative); SARS COV2 PCR INHOUSE NEGATIVE (Negative)
== END 2025-03-27 12:55 | disposition home or self-care (01) ==
LOC: HO.LNP 12:54
PROVIDERS: Visit Provider Physician Assistant Medical
DX: J44.89 Other specified chronic obstructive pulmonary disease (principal); J06.9 Acute upper respiratory infection, unspecified; Z87.891 Personal history of nicotine dependence
CPT/HCPCS: 87637; 99212

== ENCOUNTER 2025-03-27 12:54 | Outpatient (AMB) | payer MEDICARE, SELFPAY ==
--- OUTSIDE RECORDS SUMMARY | 2025-03-27 12:57 | XMS_ITS | Encounter Summary ---
Author Organization [facility] Address [address] [place] [address] Phone Care Team Providers Care Asphalt Distributor Operator Name Role Phone Vince Wilcox MD Primary Care Provider [phone] Vince Wilcox MD Primary Care Provider [phone] Bhavna Cormier MD Primary Care Provider [phone] Encounter Details Date Type Department Care Team (Late st Contact Info) Description 12/30/2020 Procedure Pass [facility] Endoscopy Admitting Dept Virtual Department [address] [place] [address] Social History Tobacco Use Types Packs/Day Years [...] Care Team (Late st Contact Info) Description 02/12/2025 Procedure Pass [address] [place] [address] 04/05/2025 4:10 PM EST Office Visit [facility] [address] [place] [address] Jazz Walls CNM, MPH 22 [facility], [address] [place] [address] 04/26/2025 9:45 AM EST Office Visit [facility] [address] [place] [address] Lucius Bennett MD [address] [place] [address] Orthopedics & Sports Medicine, [place] [address] 05/10/2025 4:30 PM EST Office Visit [facility] [address] [place] [address] Bhavna Cormier MD [address] [place] [address] [email or web address] 08/19/2025 4:20 PM EDT Office Visit [facility] [address] [place] [address] John Hamlin 22 [place] [address] 11/09/2025 8:45 AM EDT Appointment [facility] [address] 3rd [place] [address] Leonel Wesley, DO 22 [facility] [address] [place] [address] 11/12/2025 11:15 AM EDT Appointment [facility] - [address] [place] [address] Dorota Ku MD [address] [place] [address] [email or web address] 11/22/2025 9:00 AM EDT Office Visit [facility] [address] [place] [address] 3rd Floor, [address] [place] [address] Anthony Butler MD [address] [place] [address], [address] [place] [address] [email or web address] documented as of this encounter Visit Diagnoses Not on filedocumented in this encounter Additional Health Concerns Infection Onset Date Last Indicated Resolved Time CoV-Risk 12/15/2024 12/15/2024 12/26/2024 1:21 AM EDT documented as of this encounter Care Teams Asphalt Distributor Operator Relationship Specialty Start Date End Date Vince Wilcox MD [address] [place] [address] PCP - General Internal Medicine 09/13/20 02/04/24 Vince Wilcox MD [address] [place] [address] PCP - General Internal Medicine 02/05/24 06/02/24 Bhavna Cormier MD [address] [place] [address] 7 [place] [address] [email or web address] PCP - General Family Medicine 06/03/24 documented as of this encounter Additional Source Comments The information contained in this document represents components of the legal health record. It is not the complete legal health record.[facility]
--- OUTSIDE RECORDS SUMMARY | 2025-03-27 12:57 | XMS_ITS | Clinical Summary ---
Author Organization [facility] Address [facility] [employer] [address] [address] Phone Care Team Providers Care Stem Setter Name Role Phone Bhavna Cormier MD Primary Care Provider [phone] Allergies Active Allergy Reactions Criticality Noted Date Comments Atorvastatin Other (See Comments) 10/31/2020 Leg cramps Codeine Unknown 12/25/2022 Gi upset Medications levothyroxine (SYNTHROID, LEVOTHROID) 75 MCG tablet levothyroxine 75 mcg tablet Active dextroamphetam ine-amphetamin e (ADDERALL) 5 mg Tab Take 5 mg by mouth daily. Active cholecalcifero l (VITAMIN D3) 25 MCG (1,000 unit) tablet Take 1,000 Units by mouth daily. Active butalbital-hans taminophen-caf feine (FIORICET, ESGIC) 50-325-40 mg per tablet Take 1 tablet by mouth every 4 (four) hours as needed for pain (specific location in comments). Active calcium carbonate 1,250 mg (500 mg elemental) capsule Take 500 mg by mouth daily. Active magnesium 250 mg Tab Take 210 mg by mouth daily. Active traZODone (DESYREL) 50 MG tablet Take 50 mg by mouth as needed. 2 Active ibuprofen (ADVIL,MOTRIN) 800 MG tablet Take 800 mg by mouth every 8 (eight) hours. 3 Active PHENobarbital- hyoscyamine-at ropine-scopola mine () 16.2-0.1037 -0.0194 mg Tab Take 1 tablet by mouth as needed. 4 Active denosumab (PROLIA SUBQ) 4 Active docusate sodium (COLACE) 100 MG capsule Take 1 capsule (100 mg total) by mouth 2 (two) times a day. 60 capsule 6 4 Active rosuvastatin (CRESTOR) 20 MG tablet TAKE 1 TABLET BY MOUTH DAILY 90 tablet 3 5 Active Active Problems Problem Noted Date Diagnosed Date Encounter to establish care 02/17/2025 Assessment & Plan (02/17/2025 10:25 AM EST): Here to establish care HFM, prior records not yet received Patient has requested prior PCP records be sent to our office UTD on CRC screening per patient, will confirm and get prior PCP records UTD on mammogram UTD on lung cancer screening per patient, will confirm and get prior PCP records RTC for CPE in 3-4 months, sooner as needed Other specified hypothyroidism 02/17/2025 Assessment & Plan (02/17/2025 10:25 AM EST): History of hypothyroidism, maintained on levothyroxine 75 mcg daily with last TSH at goal. Continue current regimen. Attention deficit hyperactiv ity disorder (ADHD), predominantly inattentive type 02/17/2025 Assessment & Plan (02/17/2025 10:25 AM EST): History of ADHD for which she has been prescribed Adderall 5 mg as needed which she uses occasionally. Migraine without aura and wi thout status migrainosus, not intractable 02/17/2025 Assessment & Plan (02/17/2025 10:26 AM EST): History of migraines for which she has been prescribed Fioricet as needed. She is also maintained on magnesium supplementation. Continue current regimen. Primary insomnia 02/17/2025 Assessment & Plan (02/17/2025 10:26 AM EST): History of insomnia for she has been prescribed trazodone as needed which she uses sparingly. Continue current regimen. History of tobacco use 02/17/2025 Assessment & Plan (02/17/2025 10:27 AM EST): History of tobacco use, quit in 2018 and denies cravings. She is UTD with lung cancer screening, will continue annual monitoring. History of repair of hiatal hernia 02/21/2024 Other dysphagia 08/12/2023 Bilateral carotid artery stenosis 12/25/2022 Assessment & Plan (02/17/2025 10:18 AM EST): Follows with cardiology for annual carotid artery ultrasounds, recommended restarting rosuvastatin 20 mg as this was controlling her lipids very well previously. Repeat lipid panel and LFTs ordered for 4 weeks from now to ensure no recurrence of transaminitis. Follow-up with cardiology in place. Assessment & Plan (11/09/2024 9:13 AM EDT): [...] current pathological fracture 03/10/2021 Assessment & Plan (02/17/2025 10:19 AM EST): Follows with Dr. Hamlin of endocrinology, will be starting Prolia injections as had significant AE to the alendronate. Maintained on calcium and vitamin D supplementation as well. Follow-up with Dr. Hamlin in place. Assessment & Plan (04/27/2024 10:41 AM EST): She continues with calcium vitamin D supplements today she presents for the 6th Prolia injection. She is due for repeat DXA scan at a [facility] facility on 10/17/2024 this has been [...] she had the last imaging or which [facility] facility it was done. She believes it was [place]. I will ask my staff to send DXA scan request to [facility]. Addendum: She googled her calcium [...] use Prolia. Of course she has health [employer] insurance and we do have to get [...] Essential familial hypercholesterolemia 02/16/20 Assessment & Plan (02/17/2025 10:18 AM EST): Last lipid panel with excellent lipid control, had discontinued the rosuvastatin 20 mg out of concern for transaminitis however she has been on this medication for 15 years and had no prior issues with her liver enzymes previously. Recommended restarting the rosuvastatin and repeat LFTs in 4 weeks. Will also order repeat lipid panel to ensure LDL continues to be at goal. Assessment & Plan (11/09/2024 9:14 AM EDT): [...] insurance company. I will have the medical practice administrator's wellness and see if we can get [...] I will see her thereafter in follow-up. Benign essential hypertension 10/31/2020 Overview (11/09/2024): Her blood pressure is perfectly controlled to the guidelines Assessment & Plan (02/17/2025 10:17 AM EST): BP at goal on last cardiology evaluation, not maintained on antihypertensive medications. Assessment & Plan (11/09/2024 9:13 AM EDT): [...] & Plan (10/31/2020 12:03 PM EDT): Well-controlled Resolved Problems Problem Noted Date Diagnosed Date Resolved Date Paraesophageal hernia 08/12/20232024 Assessment & Plan (08/12/2023 3:53 PM EDT): [...] health. She is scheduled to see the supervisor paste mixing for her normal ongoing follow-up and will need a cardiac clearance prior to this procedure anyway. Epigastric pain 01/21/2023 02/17/2025 Assessment & Plan (01/21/2023 4:35 PM EDT): This is a 62-year-old woman who has a history of undergoing hiatal hernia repair with partial gastric fundoplication for gastroesophageal reflux disease with Dr. Ribeiro from [facility] in 2020. The patient has developed [...] the documentation that was sent over from [facility] including the endoscopy. Chest pain on breathing 10/31/202001/30 Assessment & Plan (01/10/2021 12:20 PM EDT): No coronary disease whatsoever on high quality stress testing Assessment & Plan (10/31/2020 12:03 PM EDT): As mentioned given her risk factors it is worth doing an exercise nuclear stress test she does have nonspecific T wave abnormalities on the ECG and a lot of risk factors. Obesity (BMI 30-39.9) 10/31/20202024 Assessment & Plan (11/09/2024 9:14 AM EDT): [...] Encounters Date Type Department Care Team Description 03/03/2025 Telephone [facility] [address] [place] [address] Bhavna Cormier MD Insurance Issue 02/26/2025 Orders Only [facility] [address] [place] [address] Marcial Moreira MA Left foot pain (Primary Dx) 02/17/2025 11:45 AM EST Nurse Only [facility] [address] [place] [address] Bhavna Cormier MD Other osteoporosis without current pathological fracture (Primary Dx) 02/17/2025 10:00 AM EST Telemedicine [facility] [address] [place] [address] Bhavna Cormier MD Encounter to establish care (Primary Dx); Familial hypercholesterolemi a, unspecified type; Screening for condition; Benign essential hypertension; Bilateral carotid artery stenosis; Other osteoporosis without current pathological fracture; Other specified hypothyroidism; Attention deficit hyperactivity disorder (ADHD), predominantly inattentive type; Migraine without aura and without status migrainosus, not intractable; Primary insomnia; History of tobacco use 02/17/2025 Telephone [facility] [address] [place] [address] Estuardo Olea MD Schedule Procedure 02/12/2025 Ancillary Orders [facility]Outside Imaging [address] [place] [address] Sathya, MD Sathya 02/12/2025 Ancillary Orders [facility],Outside Imaging [address] [place] [address] Unknown, MD Sathya 02/12/2025 Ancillary Orders [facility],Outside Imaging [address] [place] [address] Unknown, MD Sathya 02/12/2025 Transcribe Orders Virtual Department [address] [place] [address] Yesenia Silveira MA Breast screening (Primary Dx) 02/12/2025 Transcribe Orders [facility] Access [facility] - Virtual Department [address] [place] [address] Self-Referred, Patient from Last 3 Months Immunizations Immunization Administration Dates Next Due COVID-19 (Pre-01/21) Pfizer Vaccine, mRNA, PF 05/23/2020,05/12/2020 INFLUENZA, SPLIT VIRUS, TRIV ALENT W/ PRESERVATIVE IM 03/11/2023,02/12/2018,05/15/2017,04/14,03/05/2011 Influenza Quadrivalent MDCK Preservative Free IM 03/16/2022 Influenza Quadrivalent Prese rvative Free IM 02/12/2020,12/30/2018 Influenza, Unspecified Formulation 03/12/2024,,03/16/2022 Pneumococcal polysaccharide PPSV23 12/31/2018 Td, unspecified formulation 12/31/2001 Tdap 09/01/2021,08/07/2011 Zoster recombinant 03/16/2022,05/27/2021 Family History Medical History Relation Comments Arthritis Father Heart disease Father Lung cancer Mother Osteoporosis Mother Relation Status Comments Father Alive Mother Social History Tobacco Use Types Packs/Day Years Used Date Smoking Tobacco: Former Cigarettes 2017 Smokeless Tobacco: Former Tobacco Cessation:Counseling Given: Not Answered Alcohol Use Standard Drinks/Week Comments Never 0 (1 standard drink = 0.6 oz pur e alcohol) Child or Family Care Answer Date Record ed Do you have problems with on e of the following making it difficult for you to work, study, or receive health care? No 02/11/2025 Education Answer Date Recorded Are you interested in help w ith more adult education (for example, completing high school, GED, job training, learning the [place] language, technical skills, or developing parenting skills)? No 02/11/2025 Are you concerned about learning? Not on file 02/11/2025 No 02/11/2025 Yes 02/11/2025 Food Answer Date Recorded Within the past 6 months we worried whether our food would run out before we got money to buy more. Never True 02/11/2025 Within the past 6 months the food we bought just didn't last and we didn't have enough money to get more. Never True Residential Stability Answer Date Recor ded What is your housing situation today? I have samson machuca 02/11/2025 How many times have you move d in the past 12 months? Zero (I did not move) 02/11/2025 Paying for Meds Answer Date Recorded Do you have trouble paying for medicines? Yes 02/11/2025 Paying Utility Bills Answer Date Record ed Do you have trouble paying y our heating or electricity bill? I choose not to answer 02/11/2025 Transportation Answer Date Recorded Has the lack of transportati on kept you from medical appointments or from getting medications? No 02/11/2025 Digital Access Answer Date Recorded No 02/11/2025 Yes 02/11/2025 Do you have reliable internet access at home? Ye s 02/11/2025 Do you have a device (e.g., phone, tablet, computer) with a working camera? Yes 02/11/2025 Intimate Partner Violence Answer Date R ecorded Are you denied basic needs s uch as food, clothing, or medical care? No 02/11/2025 In the past 12 months have y ou been in a relationship with a person who hurts, threatens, or tries to control you? No 02/11/2025 Are you denied basic needs s uch as food, clothing, or medical care? No 02/11/2025 In the past 12 months have y ou been in a relationship with a person who hurts, threatens, or tries to control you? No 02/11/2025 Comments No Sex and Gender Information Value [...] st Contact Info) Description 02/12/2025 Procedure Pass [address] [place] [address] 04/05/2025 4:10 PM EST Office Visit [facility] [address] [place] [address] [place] [address] Jazz Walls, PHILIPPE, MPH [address] [place] [address] 04/26/2025 9:45 AM EST Office Visit [facility] [address] [place] [address] Lucius Bennett MD [address] [place] [address] Orthopedics & Sports Medicine, [facility] [place] [address] 05/10/2025 4:30 PM EST Office Visit [facility] [address] [place] [address] Bhavna Cormier MD [address] [place] [address] [email or web address] 08/19/2025 4:20 PM EDT Office Visit [facility] [address] [place] [address] John Hamlin DO [address] [place] [address] [email or web address] 11/09/2025 8:45 AM EDT Appointment [facility] [address] 3rd [place] [address] Leonel Wesley, DO [address] [place] [address] [place] [address] [email or web address] 11/12/2025 11:15 AM EDT Appointment [address] [place] [address] Dorota Ku MD [address] [address] [email or web address] 11/22/2025 9:00 AM EDT Office Visit [facility] [address] [place] [address] Dr 3rd Floor, [address] [place] [address] Anthony Butler MD [address] [place] [address], [address] [address] [email or web address] Health Maintenance Due Date Last Done Comments HEPATITIS C SCREENING 06/19/1977 HIV ONE-TIME SCREENING (18-65 YEARS) 06/19/1977 COLOGUARD 06/19/2004 COLONOSCOPY 06/19/2004 COLORECTAL CANCER SCREENING 06/19/2004 FIT TEST 06/19/2004 FOBT 06/19/2004 SIGMOIDOSCOPY 06/19/2004 VIRTUAL COLONOSCOPY 06/19/2004 LUNG CANCER SCREENING (LDCT Only) 06/19/2009 PNEUMOCOCCAL VACCINES (50+ years) (2 of 2 - PCV) 01/01/2020 12/31/2018 INFLUENZA VACCINE (#1) 2024 4, 03/11/2023, 03/11/2023, Additional history exists COVID-19 VACCINE (2024- season) 2024 03/18/2021, 05/23/2020, 05/12/2020, Additional history exists BLOOD PRESSURE 05/12/2025 11/09/2024 MAMMOGRAM 12/09/2025 12/10/2023, 09/29, 10/10/2021 TSH LEVEL 12/15/2025 12/15/2024, 03/13/2021 DEPRESSION SCREENING 02/11/2026 02/11/2025 SCREENING FOR DIABETES 12/16/2027 12/15/2024 Adult Td,Tdap [...] this topic Medical Devices Implanted Type Area Search Engine Optimization Consultant Device Identifier Shelf Expiration Date Model / Serial / Lot Mesh Mesh Bladder Pin Pin Bilateral: Toe Procedures Procedure Name Priority Date/Time Associated Diagnosis Comments XR FOOT (LEFT) Routine 02/26/2025 10:38 AM EST Left foot pain TSH WITH REFLEX STAT 12/15/2024 12:13 PM EDT BD DXA MONITORING Routine 10/21/2024 9:5 0 AM EDT Other osteoporosis without current pathological fracture BI MAMMOGRAM OUTSIDE (NO INTERPRETATION) Routine 12/10/2023 12:00 AM EDT from Last 3 Months or Most Recently Relevant to Health Maintenance Results * TSH with reflex (12/15/2024 12:13 PM EDT) TSH 2.59 0.27 - 4.20 uIU/mL [facility] Blood 12/15/2024 12:1 3 PM EDT 12/15/2024 12:24 PM EDT us Jazz Paz PA-C LAB BLOOD BKR ORDERABLES Fi nal Result [facility] [address] [place] [address] * DXA Monitoring (10/21/2024 9:50 AM EDT) Anatomical Region Laterality Modality Bone Density Bone Density us John Hamlin DO IMG BD BONE DENSITY DEXA Final R esult * Mammogram Outside (No Interpretation) (12/10/2023 12:00 AM EDT) Narrative Record, 02/12/2025 5:14 PM EST This study is for PACS storage only and not for interpretation. Procedure Note Record, 02/12/2025 This study is for PACS storage only and not for interpretation. us Unknown Unknown MD SEGUNDO OUTSIDE IMAGING W/OUT INT ERPRETATION Final Result from Last 3 Months or Most Recently Relevant to Health Maintenance Insurance [employer] PPO MEDICARE REPLACEMENT AET[employer] O MEDICARE REPLACEMENT A[employer] O MEDICARE REPLACEMENT AETNA O MEDICARE REPLACEMENT AETNA [facility] MEDICARE REPLACEMENT AETNA [facility] MEDICARE REPLACEMENT Advance Directives For more information, please contact: [phone] (9AM - 5PM Angie/[facility], Saturday-Saturday) Documents on File Type Date Recorded Patient Economic Development Coordinator Expl anation Healthcare Proxy 01/30/2024 * Full Code (Latest Code Status on File) Date Activated Date Inactivated Comments 01/30/2024 6:43 AM Question Answer Comments Code Status Confirmed With: Patient Care Teams Stem Setter Relationship Specialty Start Date End Date Bhavna Cormier MD [address] [place] [address] [address] [place] [address] [email or web address] PCP - General Family Medicine 06/03/24 Additional Source Comments The information contained in this document represents components of the legal health record. It is not the complete legal health record.[facility]
--- OUTSIDE RECORDS SUMMARY | 2025-03-27 12:57 | XMS_ITS | Encounter Summary ---
Author Organization [facility] Address [address] [place] [address] Phone Care Team Providers Care Regrader Name Role Phone Vince Wilcox MD Primary Care Provider [phone] Vince Wilcox MD Primary Care Provider [phone] Bhavna Cormier MD Primary Care Provider Encounter Details Date Type Department Care Team (Late st Contact Info) Description 01/24/2021 Procedure Pass [facility] Endoscopy Admitting Dept Virtual Department [address] [place] [address] Social History Tobacco Use Types Packs/Day Years [...] st Contact Info) Description 02/12/2025 Procedure Pass [address] [place] [address] 04/05/2025 4:10 PM EST Office Visit [facility]necology Clinic [address] [place] [address] Jazz Walls CNM, MPH [address] [facility], [address] [place] [address] 04/26/2025 9:45 AM EST Office Visit [facility] [address] [place] [address] Lucius Bennett MD [address] [place] [address] Orthopedics & Sports Medicine, [place] [address] 05/10/2025 4:30 PM EST Office Visit [facility] [address] [place] [address] Bhavna Cormier MD [address] [place] [address] [email or web address] 08/19/2025 4:20 PM EDT Office Visit [facility] Endocrinology Clinic [address] [place] [address] John Hamlin [address] [place] [address] 11/09/2025 8:45 AM EDT Appointment [facility] [address] 3rd [place] [address] Leonel Wesley, DO [address] [facility] [address] [place] [address] 11/12/2025 11:15 AM EDT Appointment [facility] - [address] [place] [address] Dorota Ku MD [address] [place] [address] [email or web address] 11/22/2025 9:00 AM EDT Office Visit [facility] [address] [place] [address] 3rd Floor, [address] [place] [address] Anthony Butler MD [address] [place] [address], [address] [place] [address] [email or web address] documented as of this encounter Visit Diagnoses Not on filedocumented in this encounter Additional Health Concerns Infection Onset Date Last Indicated Resolved Time CoV-Risk 12/15/2024 12/15/2024 12/26/2024 1:21 AM EDT documented as of this encounter Care Teams Regrader Relationship Specialty Start Date End Date Vince Wilcox MD [address] [place] [address] PCP - General Internal Medicine 09/13/20 02/04/24 Vince Wilcox MD [address] [place] [address] PCP - General Internal Medicine 02/05/24 06/02/24 Bhavna Cormier MD [address] [place] [address] [address] [place] [address] [email or web address] PCP - General Family Medicine 06/03/24 documented as of this encounter Additional Source Comments The information contained in this document represents components of the legal health record. It is not the complete legal health record.[facility]
--- OUTSIDE RECORDS SUMMARY | 2025-03-27 12:57 | XMS_ITS | Encounter Summary ---
Author Organization [facility] Address [address] [place] [address] [place] [address] Phone Care Team Providers Care Pool Table Operator Name Role Phone Vince Wilcox MD Primary Care Provider [phone] Vince Wilcox MD Primary Care Provider [phone] Bhavna Cormier MD Primary Care Provider [phone] Encounter Details Date Type Department Care Team (Late st Contact Info) Description 06/27/2023 Procedure Pass [facility], [address] [place] [address] Social History Tobacco Use Types Packs/Day Years [...] 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 Job End Date 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s [facility] Gynecology Clinic [address] [place] [address] [place] [address] Jazz Walls CNM, MPH [address] [facility] [address] [place] [address] 04/26/2025 9:45 AM EST Office Visit [facility] [address] [place] [address] Lucius Bennett MD [address] [place] [address] Orthopedics & Sports Medicine, [facility] [place] [address] 05/10/2025 4:30 PM EST Office Visit [facility] [address] [place] [address] Bhavna Cormier MD [address] [place] [address] [email or web address] 08/19/2025 4:20 PM EDT Office Visit [facility] Endocrinology Clinic [address] [place] [address] John Hamlin DO [address] [place] [address] 11/09/2025 8:45 AM EDT Appointment [facility] [address] 3rd [place] [address] Leonel Wesley DO [address] [facility] [address] [place] [address] [email or web address] 11/12/2025 11:15 AM EDT Appointment [address] [place] [address] Dorota Ku MD [address] [address] [email or web address] 11/22/2025 9:00 AM EDT Office Visit [facility] [address] [place] [address] Dr 3rd Floor, [address] [place] [address] Anthony Butler MD [address] [place] [address], [address] [place] [address] [email or web address] documented as of this encounter Visit Diagnoses Not on filedocumented in this encounter Additional Health Concerns Infection Onset Date Last Indicated Resolved Time CoV-Risk 12/15/2024 12/15/2024 12/26/2024 1:21 AM EDT documented as of this encounter Care Teams Pool Table Operator Relationship Specialty Start Date End Date Vince Wilcox MD [address] [place] [address] PCP - General Internal Medicine 09/13/20 02/04/24 Vince Wilcox MD [address] [place] [address] PCP - General Internal Medicine 02/05/24 06/02/24 Bhavna Cormier MD [address] [place] [address] [address] [place] [address] [email or web address] PCP - General Family Medicine 06/03/24 documented as of this encounter Additional Source Comments The information contained in this document represents components of the legal health record. It is not the complete legal health record.[facility]
--- OUTSIDE RECORDS SUMMARY | 2025-03-27 12:57 | XMS_ITS | Encounter Summary ---
Author Organization [facility] Address [address] [place] [address] Phone Care Team Providers Care Plant Maintenance Manager Name Role Phone Vince Wilcox MD Primary Care Provider [phone] Vince Wilcox MD Primary Care Provider [phone] Bhavna Cormier MD Primary Care Provider [phone] Reason for Referral * MRI/CAT Scan - Closed Specialty Diagnoses / Procedures Referred By Michael wilson Referred To Contact Radiology Diagnoses Dilated bile duct Procedures MRI Cholangiopancreatography (MRCP) CHG MRI, ABDOMEN, COMBO Arleth Redd PA 10 [place] [address] Phone: tel: fax: Referral ID Status Reason Start Date Expiration Date Visits Re quested Visits Authorized [id number] Closed 06/17/2023 08/16/2023 1 1 Encounter Details Date Type Department Care Team (Latest Contact Info) Description 06/27/2023 Transcribe Orders Virtual Department 30 [place] [address] Arleth Redd PA 10 [place], [place] [phone] Dilated bile duct (Primary Dx) Social History [...] Industry 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 Not on file Not on file documented as of this encounter Plan of Treatment Upcoming Encounters Date Type Department Care Team (Late st Contact Info) Description 02/12/2025 Procedure Pass [facility] - [address] [place] [address] 04/05/2025 4:10 PM EST Office Visit [facility] [address] [place] [address] [place] [address] Jazz Walls CNM, MPH [address] [place] [address] 04/26/2025 9:45 AM EST Office Visit [facility] [address] [place] [address] Lucius Bennett MD [address] [place] [address] Orthopedics & Sports Medicine, [facility] [place] [address] 05/10/2025 4:30 PM EST Office Visit [facility] [address] [place] [address] Bhavna Cormier MD [address] [place] [address] [email or web address] 08/19/2025 4:20 PM EDT Office Visit [facility]ology [facility] [address] [place] [address] John Hamlin DO 22 [place] [address] 11/09/2025 8:45 AM EDT Appointment [facility] [address] 3rd [place] [address] Leonel Wesley, DO [address] [address] 11/12/2025 11:15 AM EDT Appointment [facility] - [address] [place] [address] Dorota Ku MD [address] [address] [email or web address] 11/22/2025 9:00 AM EDT Office Visit [facility] [address] [place] [address] 3rd Floor, [address] [place] [address] Anthony Butler MD [address] [place] [address], [address] [address] documented as of this encounter Results * [...] clinician's provided indication for this examination in [facility]: Outside Radiology Order; bile duct dilation TECHNIQUE: [...] clinician's provided indication for this examination in [facility]:Outside Radiology Order; bile duct dilation TECHNIQUE: Multiplanar [...] documented as of this encounter Care Teams Plant Maintenance Manager Relationship Specialty [place] [address] [place] [address] PCP - General Internal Medicine 09/13/20 02/04/24 Vince Wilcox MD [address], [place] [address] PCP - General Internal Medicine 02/05/24 06/02/24 Bhavna Cormier MD [address] [place] [address], [facility] 7 [place] [address] [email or web address] PCP - General Family Medicine 06/03/24 documented as of this encounter Additional Source Comments The information contained in this document represents components of the legal health record. It is not the complete legal health record.[facility]
--- OUTSIDE RECORDS SUMMARY | 2025-03-27 12:57 | XMS_ITS | Encounter Summary ---
Author Organization [facility] Address [facility] [address] [place] [address] Phone Care Team Providers Care Clinic Licensed Practical Nurse Name Role Phone Bhavna Cormier MD Primary Care Provider Reason for Visit * Reason Onset Date Comments Insurance Issue 03/03/2025 Encounter Details Date Type Department Care Team (Late st Contact Info) Description 03/03/2025 Telephone [facility] [address] [place] [address] Bhavna Cormier MD 234 [facility] [address] [place] [address] [email or web address] Insurance Issue Social History Tobacco Use Types Packs/Day Years [...] high school, GED, job training, learning the Slovenian language, technical skills, or developing parenting skills)? 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 Pt stated that she spoke with [employer] and [employer], and was told that none of their available plans had her PCP in network. Pt stated that she spoke with the CD Billing Department, and that they told her they hadn't received any information about any josh status change. Pt asks if HFM/the rn family practice has any advice on what she should do/what's going on. Pt stated that the deadline for her to change plans is Saturday. Please contact and advise. Central Support Program Coordinator Executive Education (Please do not reply to this user; this inbox is not monitored.) Thank you. documented in this encounter Plan of Treatment Upcoming Encounters Date Type Department Care Team (Late st Contact Info) Description 02/12/2025 Procedure Pass [address] [place] [address] 04/05/2025 4:10 PM EST Office Visit [facility]ne[facility] [address] [place] [address] [place] [address] Jazz Walls CNM, MPH [address] [place] [address], [facility] [address] [place] [address] 04/26/2025 9:45 AM EST Office Visit [facility] [address] [place] [address] Lucius Bennett MD [address] [place] [address] Orthopedics & Sports Medicine, [place] [address] 05/10/2025 4:30 PM EST Office Visit [facility] [address] [place] [address] Bhavna Cormier MD [address] [place] [address] 7 [place] [address] [email or web address] 08/19/2025 4:20 PM EDT Office Visit [facility] Endocrinology Clinic [address] [place] [address] John Hamlin DO 22 [place] [address] 11/09/2025 8:45 AM EDT Appointment [facility] [address] 3rd [place] [address] Leonel Wesley DO [address] [address] 11/12/2025 11:15 AM EDT Appointment [facility] - [address] [place] [address] Dorota Ku MD [address] [address] [email or web address] 11/22/2025 9:00 AM EDT Office Visit [facility] [address] [place] [address] 3rd Floor, [address] [place] [address] Anthony Butler MD 22 [facility], [address] [address] [email or web address] documented as of this encounter Visit Diagnoses Not on filedocumented in this encounter Additional Health Concerns Assessment Noted Time PHQ-2 Depression Total Score: 0 02/12/20 25 9:10 PM EST documented as of this encounter Care Teams Clinic Licensed Practical Nurse Relationship Specialty Start Date End Date Bhavna Cormier MD [address] [place] [address], [address] [place] [address] [email or web address] PCP - General Family Medicine 06/03/24 documented as of this encounter Additional Source Comments The information contained in this document represents components of the legal health record. It is not the complete legal health record.[facility]
--- OUTSIDE RECORDS SUMMARY | 2025-03-27 12:57 | XMS_ITS | Encounter Summary ---
Author Organization [facility] Address [address] [place] [address] [place] [address] Phone Care Team Providers Care Real Estate Office Manager Name Role Phone Vince Wilcox MD Primary Care Provider [phone] Vince Wilcox MD Primary Care Provider [phone] Bhavna Cormier MD Primary Care Provider Encounter Details Date Type Department Care Team (Latest Contact Info) Description 01/02/2023 Transcribe Orders Virtual Department 30 [place] [address] Estuardo Olea MD [address] [place] [address] [email or web address] Dysphagia, unspecified type (Primary Dx) [...] st Contact Info) Description 02/12/2025 Procedure Pass [address] [place] [address] 04/05/2025 4:10 PM EST Office Visit [facility]s [facility]necology Clinic [address] [place] [address] [place] [address] Jazz Walls CNM, MPH [address] [address] 04/26/2025 9:45 AM EST Office Visit [facility] [address] [place] [address] Lucius Bennett MD [address] [place] [address] Orthopedics & Sports Medicine, [facility] [place] [address] 05/10/2025 4:30 PM EST Office Visit [facility] 234 [place] [address] Bhavna Cormier MD [address] [place] [address] [email or web address] 08/19/2025 4:20 PM EDT Office Visit [facility] Endocrinology Clinic [address] [place] [address] John Hamlin DO 22 [place] [address] 11/09/2025 8:45 AM EDT Appointment [address] 3rd [place] [address] Leonel Wesley DO 22 [facility] [address] [place] [address] [email or web address] 11/12/2025 11:15 AM EDT Appointment [address] [place] [address] Dorota Ku MD [address] [address] [email or web address] 11/22/2025 9:00 AM EDT Office Visit [facility] [address] [place] [address] [facility], [address] [place] [address] Anthony Butler MD [address] [place] [address], [address] [address] [email or web address] documented as of this encounter Results * [...] originally createdby Nathaniel Serrano. Estuardo Olea MD IMG FL MISC Final Result documented in this encounter Visit Diagnoses Diagnosis Dysphagia, unspecified type- Primary Dysphagia, unspecified type documented in this encounter Additional Health Concerns Infection Onset Date Last Indicated Resolved Time CoV-Risk 12/15/2024 12/15/2024 12/26/2024 1:21 AM EDT documented as of this encounter Care Teams Real Estate Office Manager Relationship Specialty Start Date End Date Vince Wilcox MD [address] [address] PCP - General Internal Medicine 09/13/20 02/04/24 Vince Wilcox MD [address], [place] [address] PCP - General Internal Medicine 02/05/24 06/02/24 Bhavna Cormier MD [address] [place] [address] [address] [place] [address] [email or web address] PCP - General Family Medicine 06/03/24 documented as of this encounter Additional Source Comments The information contained in this document represents components of the legal health record. It is not the complete legal health record.[facility]
--- OUTSIDE RECORDS SUMMARY | 2025-03-27 12:57 | XMS_ITS | Encounter Summary ---
Author Organization [facility] Address [address] [place] [address] Phone Care Team Providers Care Ultra Sound Technician Name Role Phone Vince Wilcox MD Primary Care Provider [phone] Vince Wilcox MD Primary Care Provider [phone] Bhavna Cormier MD Primary Care Provider [phone] Encounter Details Date Type Department Care Team (Late st Contact Info) Description 10/31/2020 Procedure Pass [facility] [address] [place] [address] [place] [address] Social History Tobacco Use Types Packs/Day Years [...] Contact Info) Description 02/12/2025 Procedure Pass [address] [place] [address] 04/05/2025 4:10 PM EST Office Visit [facility]necology Clinic [address] [place] [address] [place] [address] Jazz Walls CNM, MPH 22 [facility], [address] [place] [address] 04/26/2025 9:45 AM EST Office Visit [facility] [address] [place] [address] Lucius Bennett MD [address] [place] [address] Orthopedics & Sports Medicine, [facility] [place] [address] 05/10/2025 4:30 PM EST Office Visit [facility] [address] [place] [address] Bhavna Cormier MD [address] [place] [address] [email or web address] 08/19/2025 4:20 PM EDT Office Visit [facility] Endocrinology Clinic [address] [place] [address] John Hamlin 22 [place] [address] 11/09/2025 8:45 AM EDT Appointment [facility] [address] 3rd [place] [address] Leonel Wesley DO 22 [facility] [address] [place] [address] 11/12/2025 11:15 AM EDT Appointment [facility] - [address] [place] [address] Dorota Ku MD [address] [address] [email or web address] 11/22/2025 9:00 AM EDT Office Visit [facility] 22 [facility] 3rd Floor, [address] [place] [address] Anthony Butler MD 22 [facility], [address] [place] [address] [email or web address] documented as of this encounter Visit Diagnoses Not on filedocumented in this encounter Additional Health Concerns Infection Onset Date Last Indicated Resolved Time CoV-Risk 12/15/2024 12/15/2024 12/26/2024 1:21 AM EDT documented as of this encounter Care Teams Ultra Sound Technician Relationship Specialty Start Date End Date Vince Wilcox MD [facility] [address] PCP - General Internal Medicine 09/13/20 02/04/24 Vince Wilcox MD [facility] [address] PCP - General Internal Medicine 02/05/24 06/02/24 Bhavna Cormier MD [address] [place] [address] 7 [place] [address] [email or web address] PCP - General Family Medicine 06/03/24 documented as of this encounter Additional Source Comments The information contained in this document represents components of the legal health record. It is not the complete legal health record.[facility]
--- OUTSIDE RECORDS SUMMARY | 2025-03-27 12:57 | XMS_ITS | Encounter Summary ---
Author Organization [facility] Address [address] [place] [address] [place] [address] Phone Care Team Providers Care Inspector Experimental Assembly Name Role Phone Bhavna Cormier MD Primary Care Provider [phone] Encounter Details Date Type Department Care Team (Late st Contact Info) Description 02/26/2025 Orders Only [facility] [address] [place] [address] Marcial Moreira [address] [address] Left foot pain (Primary Dx) Social History Tobacco Use Types [...] high school, GED, job training, learning the Azeri language, technical skills, or developing parenting skills)? [...] st Contact Info) Description 02/12/2025 Procedure Pass [facility] [address] [place] [address] 04/05/2025 4:10 PM EST Office Visit [facility] [address] [place] [address] [place] [address] Jazz Walls, CNM, MPH 22 [facility], [address] [place] [address] 04/26/2025 9:45 AM EST Office Visit [facility] [address] [place] [address] Lucius Bennett MD [address] [place] [address] Orthopedics & Sports Medicine, [facility] [place] [address] 05/10/2025 4:30 PM EST Office Visit [facility] [address] [place] [address] Bhavna Cormier MD [address] [place] [address] [email or web address] 08/19/2025 4:20 PM EDT Office Visit [facility] [address] [place] [address] John Hamlin DO 22 [place] [address] 11/09/2025 8:45 AM EDT Appointment [facility] [address] 3rd [place] [address] Leonel Wesley DO 22 [facility] [address] [place] [address] 11/12/2025 11:15 AM EDT Appointment [address] [place] [address] Dorota Ku MD [address] [address] [email or web address] 11/22/2025 9:00 AM EDT Office Visit [facility] [address] [place] [address] 3rd Floor, [address] [place] [address] Anthony Butler MD 22 [facility], [address] [place] [address] [email or web address] documented as of this encounter Procedures Procedure Name Priority Date/Time Associated Diagnosis Comments XR FOOT (LEFT) Routine 02/26/2025 10:38 AM EST Left foot pain documented in this encounter Visit Diagnoses Diagnosis Left foot pain- Primary Pain in soft tissues of limb documented in this encounter Additional Health Concerns Assessment Noted Time PHQ-2 Depression Total Score: 0 02/12/20 9:10 PM EST documented as of this encounter Care Teams Inspector Experimental Assembly Relationship Specialty Start Date End Date Bhavna Cormier MD [address] [place] [address] 7 [place] [address] [email or web address] PCP - General Family Medicine 06/03/24 documented as of this encounter Additional Source Comments The information contained in this document represents components of the legal health record. It is not the complete legal health record.[facility]
--- OUTSIDE RECORDS SUMMARY | 2025-03-27 12:57 | XMS_ITS | Encounter Summary ---
Author Organization [facility] Address [address] [place] [address] [place] [address] Phone Care Team Providers Care Pole Framer Machine Name Role Phone Bhavna Cormier MD Primary Care Provider Reason for Visit * Reason Onset Date Comments Schedule Procedure 02/17/2025 Encounter Details Date Type Department Care Team (Late st Contact Info) Description 02/17/2025 Telephone [facility] Gastroenterology Clinic 10 [place] [address] Estuardo Olea MD [address] [address] [email or web address] Schedule Procedure Social History Tobacco Use Types Packs/Day Years [...] high school, GED, job training, learning the Kyrgyz language, technical skills, or developing parenting skills)? 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 ECW recall 02/17/25. documented in this encounter Plan of Treatment Upcoming Encounters Date Type Department Care Team (Late st Contact Info) Description 02/12/2025 Procedure Pass [facility] - [address] [place] [address] 04/05/2025 4:10 PM EST Office Visit [facility] Obstetrics and Gynecology [address] [place] [address] Jazz Walls CNM, MPH [address] [place] [address] 04/26/2025 9:45 AM EST Office Visit [facility] Medicine Clinic [address] [place] [address] Lucius Bennett MD [address] [place] [address] Orthopedics & Sports Medicine, [place] [address] 05/10/2025 4:30 PM EST Office Visit [facility] Care Clinic [address] [place] [address] Bhavna Cormier MD [address] [place] [address] [email or web address] 08/19/2025 4:20 PM EDT Office Visit [facility] Endocrinology Clinic [address] [place] [address] John Hamlin DO 22 [place] [address] 11/09/2025 8:45 AM EDT Appointment [facility] [address] 3rd [place] [address] Leonel Wesley DO [address] [address] [email or web address] 11/12/2025 11:15 AM EDT Appointment [facility] - [address] [place] [address] Dorota Ku MD [address] [address] [email or web address] 11/22/2025 9:00 AM EDT Office Visit [facility] [address] [place] [address] 3rd [facility], [address] [place] [address] Anthony Bulter MD [address] [place] [address] [email or web address] documented as of this encounter Visit Diagnoses Not on filedocumented in this encounter Additional Health Concerns Assessment Noted Time PHQ-2 Depression Total Score: 0 02/12/20 9:10 PM EST documented as of this encounter Care Teams Pole Framer Machine Relationship Specialty Start Date End Date Bhavna Cormier MD [address] [place] [address] [email or web address] PCP - General Family Medicine 06/03/24 documented as of this encounter Additional Source Comments The information contained in this document represents components of the legal health record. It is not the complete legal health record.[facility]
--- OUTSIDE RECORDS SUMMARY | 2025-03-27 12:58 | XMS_ITS | Encounter Summary ---
Author Organization Formerly [facility] Address [address] [place] [address] [place] [address] Phone Care Team Providers Care Security Guard Supervisor Name Role Phone Vince Wilcox MD Primary Care Provider + [phone] Vince Wilcox MD Primary Care Provider [phone] Bhavna Cormier MD Primary Care Provider Encounter Details Date Type Department Care Team (Late st Contact Info) Description 06/18/2023 Procedure Pass [facility] Endoscopy Admitting Dept Virtual Department 30 [place], [place] [id number] Social History Tobacco Use Types Packs/Day Years [...] 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 on file Not on file documented as of this encounter Plan of Treatment Upcoming Encounters Date Type Department Care Team (Late st Contact Info) Description 02/12/2025 Procedure Pass [facility] [address] [place] [address] 04/05/2025 4:10 PM EST Office Visit [facility] Obstetrics and Gynecology Clinic [address] [place] [address] [place] [address] Jazz Walls CNM, MPH 22 [facility] 102 [place] [address] 04/26/2025 9:45 AM EST Office Visit [facility] [address] [place] [address] Lucius Bennett MD [address] [place] [address] Orthopedics & Sports Medicine, [facility] [place] [address] 05/10/2025 4:30 PM EST Office Visit [facility] Primary Care Clinic [address] [place] [address] Bhavna Cormier MD [address] [place] [address] [email or web address] [email or web address] 08/19/2025 4:20 PM EDT Office Visit [facility] Endocrinology Clinic [address] [place] [address] John Hamlin DO 22 [place] [address] 11/09/2025 8:45 AM EDT Appointment [facility] [address] 3rd [place] [address] Leonel Wesley DO 22 [facility] [address] [place] [address] [email or web address] 11/12/2025 11:15 AM EDT Appointment [address] [place] [address] Dorota Ku MD [address] [address] [email or web address] 11/22/2025 9:00 AM EDT Office Visit [facility] [address] [place] [address] Dr 3rd Floor, [address] [place] [address] Anthony Butler MD [address] [place] [address], [address] [place] [address] [email or web address] documented as of this encounter Visit Diagnoses Not on filedocumented in this encounter Additional Health Concerns Infection Onset Date Last Indicated Resolved Time CoV-Risk 12/15/2024 12/15/2024 12/26/2024 1:21 AM EDT documented as of this encounter Care Teams Security Guard Supervisor Relationship Specialty Start Date End Date Vince Wilcox MD [address] [place] [address] PCP - General Internal Medicine 09/13/20 02/04/24 Vince Wilcox MD [address] [place] [address] PCP - General Internal Medicine 02/05/24 06/02/24 Bhavna Cormier MD [address] [place] [address] 7 [place] [address] [email or web address] PCP - General Family Medicine 06/03/24 documented as of this encounter Additional Source Comments The information contained in this document represents components of the legal health record. It is not the complete legal health record.[facility]
--- OUTSIDE RECORDS SUMMARY | 2025-03-27 12:58 | XMS_ITS | Encounter Summary ---
Author Organization [facility] Address [address] [place] [address] [place] [address] Phone Care Team Providers Care Ged Tutor Name Role Phone Vince Wilcox MD Primary Care Provider + [phone] Vince Wilcox MD Primary Care Provider [phone] Bhavna Cormier MD Primary Care Provider [phone]- [phone] Encounter Details Date Type Department Care Team (Late st Contact Info) Description 05/01/2023 Procedure Pass 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 Not on file Not on file documented as of this encounter Plan of Treatment Upcoming Encounters Date Type Department Care Team (Late st Contact Info) Description 02/12/2025 Procedure Pass [facility] - [address] [place] [address] 04/05/2025 4:10 PM EST Office Visit [facility] Obstetrics [facility] Gynecology Clinic [address] [place] [address] [place] [address] Jazz Walls, PHILIPPE, MPH [address] [place] [address] 04/26/2025 9:45 AM EST Office Visit [facility] [address] [place] [address] Lucius Bennett MD [address] [place] [address] Orthopedics & Sports Medicine, [facility] [place] [address] 05/10/2025 4:30 PM EST Office Visit [facility] Primary Care Clinic [address] [place] [address] Bhavna Cormier MD [address] [place] [address] [email or web address] [email or web address] 08/19/2025 4:20 PM EDT Office Visit [facility] Endocrinology Clinic [address] [place] [address] John Hamlin DO 22 [place] [address] 11/09/2025 8:45 AM EDT Appointment [facility] [address] 3rd [place] [address] Leonel Wesley DO 22 [facility] [address] [place] [address] [email or web address] 11/12/2025 11:15 AM EDT Appointment [facility] - [address] [place] [address] Dorota Ku MD [address] [address] [email or web address] 11/22/2025 9:00 AM EDT Office Visit [facility] [address] [place] [address] Dr 3rd Floor, [address] [place] [address] Anthony Butler MD [address] [place] [address] [email or web address] documented as of this encounter Visit Diagnoses Not on filedocumented in this encounter Additional Health Concerns Infection Onset Date Last Indicated Resolved Time CoV-Risk 12/15/2024 12/15/2024 12/26/2024 1:21 AM EDT documented as of this encounter Care Teams Ged Tutor Relationship Specialty Start Date End Date Vince Wilcox MD [address] [place] [address] PCP - General Internal Medicine 09/13/20 02/04/24 Vince Wilcox MD [address] [place] [address] PCP - General Internal Medicine 02/05/24 06/02/24 Bhavna Cormier MD [address] [place] [address] 7 [place] [address] [email or web address] [email or web address] PCP - General Family Medicine 06/03/24 documented as of this encounter Additional Source Comments The information contained in this document represents components of the legal health record. It is not the complete legal health record.[facility]
--- OUTSIDE RECORDS SUMMARY | 2025-03-27 12:58 | XMS_ITS | Encounter Summary ---
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 fi le Not on file Not on file documented as of this encounter Plan of Treatment Upcoming Encounters Date Type Department Care Team (Late st Contact Info) Description 02/12/2025 Procedure Pass [address] [place] [address] 04/05/2025 4:10 PM EST Office Visit [facility] Obstetrics and Gynecology Clinic [address] [place] [address] [place] [address] Jazz Walls CNM, MPH [address] [place] [address] 04/26/2025 9:45 AM EST Office Visit [facility] Orthopedics and Sports Medicine Clinic [address] [place] [address] Lucius Bennett MD [address] [place] [address] Orth[facility] [place] [address] 05/10/2025 4:30 PM EST Office Visit [facility] Primary Care Clinic 234 [place] [address] Bhavna Cormier MD [address] [place] [address] 7 [place] [address] [email or web address] 08/19/2025 4:20 PM EDT Office Visit [facility] Endocrinology Clinic [address] [place] [address] John Hamlin DO [address] [place] [address] 11/09/2025 8:45 AM EDT Appointment [facility] [address] 3rd [place] [address] Leonel Wesley, DO [address] [place] [address] 11/12/2025 11:15 AM EDT Appointment [facility] - [address] [place] [address] Dorota Ku MD [address] [address] [email or web address] 11/22/2025 9:00 AM EDT Office Visit [facility] 22 [facility] 3rd [facility], [address] [place] [address] Anthony Butler MD [address] [place] [address] [email or web address] documented as of this encounter Visit Diagnoses Not on filedocumented in this encounter Additional Health Concerns Infection Onset Date Last Indicated Resolved Time CoV-Risk 12/15/2024 12/15/2024 12/26/2024 1:21 AM EDT documented as of this encounter Care Teams Dairy Products Maker Relationship Specialty Start Date End Date Vince Wilcox MD [address] [place] [address] PCP - General Internal Medicine 09/13/20 02/04/24 Vince Wilcox MD [address] [address] PCP - General Internal Medicine 02/05/24 06/02/24 Bhavna Cormier MD [address] [place] [address] 7 [place] [address] [email or web address] PCP - General Family Medicine 06/03/24 documented as of this encounter Additional Source Comments The information contained in this document represents components of the legal health record. It is not the complete legal health record.[facility]
--- OUTSIDE RECORDS SUMMARY | 2025-03-27 12:58 | XMS_ITS | Encounter Summary ---
Author Organization [facility] Address [address] [place] [address] Phone Care Team Providers Care Mixing And Molding Machine Operator Name Role Phone Vince Wilcox MD Primary Care Provider [phone] Vince Wilcox MD Primary Care Provider [phone] Bhavna Cormier MD Primary Care Provider Encounter Details Date Type Department Care Team (Late st Contact Info) Description 02/21/2021 Procedure Pass [facility] Endoscopy Admitting Dept Virtual Department 30 [place] [address] Social History Tobacco Use Types Packs/Day Years [...] st Contact Info) Description 02/12/2025 Procedure Pass [address] [place] [address] 04/05/2025 4:10 PM EST Office Visit [facility] Obstetrics and Gynecology Clinic [address] [place] [address] Jazz Walls CNM, MPH 22 [facility], [address] [place] [address] 04/26/2025 9:45 AM EST Office Visit [facility] Orthopedics and Sports Medicine Clinic 329 [place] [address] Lucius Bennett MD [address] [place] [address] Orthopedics & Sports Medicine, [place] [address] 05/10/2025 4:30 PM EST Office Visit [facility] Primary Care Clinic 234 [place] [address] Bhavna Cormier MD [address] [place] [address] [email or web address] 08/19/2025 4:20 PM EDT Office Visit [facility] Endocrinology Clinic [address] [place] [address] John Hamlin 22 [place] [address] 11/09/2025 8:45 AM EDT Appointment [facility] [address] 3rd [place] [address] Leonel Wesley, DO 22 [facility] [address] [place] [address] 11/12/2025 11:15 AM EDT Appointment [facility] - [address] [place] [address] Dorota Ku MD [address] [place] [address] [email or web address] 11/22/2025 9:00 AM EDT Office Visit [facility] [address] [place] [address] 3rd Floor, [address] [place] [address] Anthony Butler MD [address] [place] [address], [address] [place] [address] [email or web address] documented as of this encounter Visit Diagnoses Not on filedocumented in this encounter Additional Health Concerns Infection Onset Date Last Indicated Resolved Time CoV-Risk 12/15/2024 12/15/2024 12/26/2024 1:21 AM EDT documented as of this encounter Care Teams Mixing And Molding Machine Operator Relationship Specialty Start Date End Date Vince Wilcox MD [address] [place] [address] PCP - General Internal Medicine 09/13/20 02/04/24 Vince Wilcox MD [address] [place] [address] PCP - General Internal Medicine 02/05/24 06/02/24 Bhavna Cormier MD [address] [place] [address] 7 [place] [address] [email or web address] PCP - General Family Medicine 06/03/24 documented as of this encounter Additional Source Comments The information contained in this document represents components of the legal health record. It is not the complete legal health record.[facility]
--- OUTSIDE RECORDS SUMMARY | 2025-03-27 12:58 | XMS_ITS | Encounter Summary ---
Author Organization [facility] Address [address] [place] [address] Phone Care Team Providers Care Supervisor Fitting Name Role Phone Vince Wilcox MD Primary Care Provider [phone] Vince Wilcox MD Primary Care Provider Bhavna Cormier MD Primary Care Provider Encounter Details Date Type Department Care Team (Latest Contact Info) Description 09/14/2020 Transcribe Orders Virtual Department 30 [place] [address] Dodie Norman NP 10 [place] [address] Dysphagia, pharyngoesophageal phase (Primary Dx) Social History [...] st Contact Info) Description 02/12/2025 Procedure Pass [facility] - [address] [place] [address] 04/05/2025 4:10 PM EST Office Visit [facility] Obstetrics and Gynecology Clinic [address] [place] [address] [place] [address] Jazz Walls CNM, MPH 22 [facility], [address] [place] [address] 04/26/2025 9:45 AM EST Office Visit [facility]ics [facility] Sports Medicine Clinic 329 [place] [address] Lucius Bennett MD [address] [place] [address] Orthopedics & Sports Medicine, [place] [address] 05/10/2025 4:30 PM EST Office Visit [facility] Primary Care Clinic 234 [place] [address] Bhavna Cormier MD 234 [facility] 7 [place] [address] [email or web address] 08/19/2025 4:20 PM EDT Office Visit [facility] Endocrinology Clinic [address] [place] [address] John Hamlin 22 [place] [address] 11/09/2025 8:45 AM EDT Appointment [facility] [address] 3rd [place] [address] Leonel Wesley DO 22 [facility] [address] [place] [address] 11/12/2025 11:15 AM EDT Appointment [facility] - [address] [place] [address] Dorota Ku MD [address] [address] [email or web address] 11/22/2025 9:00 AM EDT Office Visit [facility] 22 [facility] 3rd Floor, [address] [place] [address] Anthony Butler MD [address] [place] [address], [address] [place] [address] [email or web address] documented as of this encounter Visit Diagnoses Diagnosis Dysphagia, pharyngoesophageal phase- Primary documented in this encounter Additional Health Concerns Infection Onset Date Last Indicated Resolved Time CoV-Risk 12/15/2024 12/15/2024 12/26/2024 1:21 AM EDT documented as of this encounter Care Teams Supervisor Fitting Relationship Specialty Start Date End Date Vince Wilcox MD [address] [place] [address] PCP - General Internal Medicine 09/13/20 02/04/24 Vince Wilcox MD [address] [place] [address] PCP - General Internal Medicine 02/05/24 06/02/24 Bhavna Cormier MD [address] [place] [address] 7 [place] [address] [email or web address] PCP - General Family Medicine 06/03/24 documented as of this encounter Additional Source Comments The information contained in this document represents components of the legal health record. It is not the complete legal health record.[facility]
--- OUTSIDE RECORDS SUMMARY | 2025-03-27 12:58 | XMS_ITS | Encounter Summary ---
Author Organization 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 Obstetrics and Gynecology Clinic [address] [place] [address] [place] [address] Jazz Walls, DAM, MPH [address] [address] 04/26/2025 9:45 AM EST Office Visit [facility] Orthopedics and Sports Medicine Clinic [address] [place] [address] Lucius Bennett MD [address] [place] [address] Orthopedics & Sports Medicine, [facility] [place] [address] 05/10/2025 4:30 PM EST Office Visit [facility] Primary Care Clinic [address] [place] [address] Bhavna Cormier MD [address] [place] [address] [email or web address] 08/19/2025 4:20 PM EDT Office Visit [facility] Endocrinology Clinic [address] [place] [address] John Hamlin DO 22 [place] [address] [email or web address] 11/09/2025 8:45 AM EDT Appointment [facility] [address] 3rd [place] [address] Leonel Wesley DO 22 [facility] [address] [place] [address] [email or web address] 11/12/2025 11:15 AM EDT Appointment [address] [place] [address] Dorota Ku MD [address] [address] [email or web address] 11/22/2025 9:00 AM EDT Office Visit [facility] [address] [place] [address] Dr 3rd Floor, [address] [place] [address] Anthony Butler MD [address] [place] [address], [address] [place] [address] [email or web address] documented as of this encounter Results * [...] this examination in Epic: Outside Radiology Order; lesion on ovary TECHNIQUE: [...] for this examination in Epic:Outside Radiology Order; lesion on ovary TECHNIQUE: Pelvic [...] documented as of this encounter Care Teams Therapeutic Consultant Relationship Specialty Start Date End Date Vince Wilcox MD [address] [place] [address] PCP - General Internal Medicine 09/13/20 02/04/24 Vince Wilcox MD [address] [place] [address] PCP - General Internal Medicine 02/05/24 06/02/24 Bhavna Cormier MD [address] [place] [address] 7 [place] [address] [email or web address] PCP - General Family Medicine 06/03/24 documented as of this encounter Additional Source Comments The information contained in this document represents components of the legal health record. It is not the complete legal health record.[facility]
--- OUTSIDE RECORDS SUMMARY | 2025-03-27 12:58 | XMS_ITS | Encounter Summary ---
Author Organization [facility] Address [address] [place] [address] Phone Care Team Providers Care Front Line Supervisor Name Role Phone Vince Wilcox MD Primary Care Provider [phone] Vince Wilcox MD Primary Care Provider Bhavna Cormier MD Primary Care Provider Encounter Details Date Type Department Care Team (Late st Contact Info) Description 10/07/2020 Ancillary Orders Virtual Department 30 [place] [address] Dodie Norman NP [address] [place] [address] Dysphagia, unspecified type Social History Tobacco Use [...] st Contact Info) Description 02/12/2025 Procedure Pass [facility] - [address] [place] [address] 04/05/2025 4:10 PM EST Office Visit [facility] Obstetrics and Gynecology Clinic [address] [place] [address] Jazz Walls, PHILIPPE, MPH 22 [facility] 102 [place] [address] 04/26/2025 9:45 AM EST Office Visit [facility] Orthopedics and Sports Medicine Clinic [address] [place] [address] Lucius Bennett MD [address] [place] [address] Orthopedics & Sports Medicine, [place] [address] 05/10/2025 4:30 PM EST Office Visit [facility] Primary Care Clinic [address] [place] [address] Bhavna Cormier MD [address] [place] [address] [email or web address] 08/19/2025 4:20 PM EDT Office Visit [facility] Endocrinology Clinic [address] [place] [address] John Hamlin 22 [place] [address] 11/09/2025 8:45 AM EDT Appointment [facility] [address] 3rd [place] [address] Leonel Wesley, DO 22 [facility] [address] [place] [address] 11/12/2025 11:15 AM EDT Appointment [facility] - [address] [place] [address] Dorota Ku MD [address] [address] [email or web address] 11/22/2025 9:00 AM EDT Office Visit [facility] [address] [place] [address] 3rd Floor, [address] [place] [address] Anthony Butler MD [address] [place] [address], [address] [place] [address] [email or web address] documented as of this encounter Results * [...] Number of total images: 437 Procedure Note Aqulies Ross MD - 10/28/2020 TECHNIQUE: BARIUM SWALLOW [...] with endoscopy. 3.Large hiatal hernia. Dodie Norman CLEANER GREASER IMG FL MISC Final Res ult documented in this encounter Visit Diagnoses Diagnosis Dysphagia, unspecified type Dysphagia, unspecified type documented in this encounter Additional Health Concerns Infection Onset Date Last Indicated Resolved Time CoV-Risk 12/15/2024 12/15/2024 12/26/2024 1:21 AM EDT documented as of this encounter Care Teams Front Line Supervisor Relationship Specialty Start Date End Date Vince Wilcox MD [address] [place] [address] PCP - General Internal Medicine 09/13/20 02/04/24 Vince Wilcox MD [address] [place] [address] PCP - General Internal Medicine 02/05/24 06/02/24 Bhavna Cormier MD [address] [place] [address], [address] [place] [address] [email or web address] PCP - General Family Medicine 06/03/24 documented as of this encounter Additional Source Comments The information contained in this document represents components of the legal health record. It is not the complete legal health record.[facility]
--- OUTSIDE RECORDS SUMMARY | 2025-03-27 12:58 | XMS_ITS | Encounter Summary ---
Author Organization [facility] Address [address] [place] [address] Phone Care Team Providers Care Rn Icu Name Role Phone Vince Wilcox MD Primary Care Provider [phone] Vince Wilcox MD Primary Care Provider [phone] Bhavna Cormier MD Primary Care Provider Encounter Details Date Type Department Care Team (Late st Contact Info) Description 05/07/2023 Telephone [facility] Main Endoscopy [address] [place] [address] Swati Lucas RN 30 [place] [address] [email or web address] Social History Tobacco Use Types Packs/Day Years [...] 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 Not on file Not on file documented as of this encounter Plan of Treatment Upcoming Encounters Date Type Department Care Team (Late st Contact Info) Description 02/12/2025 Procedure Pass [address] [place] [address] 04/05/2025 4:10 PM EST Office Visit [facility] Obstetrics and Gynecology Clinic [address] [place] [address] [place] [address] Jazz Walls CNM, MPH [address] [address] 04/26/2025 9:45 AM EST Office Visit [facility] Orthopedics and Sports Medicine Clinic [address] [place] [address] Lucius Bennett MD [address] [place] [address] Orthopedics & Sports Medicine, [facility] [place] [address] 05/10/2025 4:30 PM EST Office Visit [facility] Primary Care Clinic 234 [place] [address] Bhavna Cormier MD 234 [facility] 7 [place] [address] [email or web address] 08/19/2025 4:20 PM EDT Office Visit [facility] Endocrinology Clinic [address] [place] [address] John Hamlin DO 22 [place] [address] [email or web address] 11/09/2025 8:45 AM EDT Appointment [address] 3rd [place] [address] Leonel Wesley DO 22 [facility] [address] [place] [address] [email or web address] 11/12/2025 11:15 AM EDT Appointment [facility] [place] [facility] - [address] [place] [address] Dorota Ku MD [address] [address] [email or web address] 11/22/2025 9:00 AM EDT Office Visit [facility] [address] [place] [address] 3[address] [facility], [address] [place] [address] Anthony Butler MD [address] [place] [address] [email or web address] documented as of this encounter Visit Diagnoses Not on filedocumented in this encounter Additional Health Concerns Infection Onset Date Last Indicated Resolved Time CoV-Risk 12/15/2024 12/15/2024 12/26/2024 1:21 AM EDT documented as of this encounter Care Teams Rn Icu Relationship Specialty Start Date End Date Vince Wilcox MD [address] [address] PCP - General Internal Medicine 09/13/20 02/04/24 Vince Wilcox MD [address] [place] [address] PCP - General Internal Medicine 02/05/24 06/02/24 Bhavna Cormier MD [address] [place] [address] 7 [place] [address] [email or web address] PCP - General Family Medicine 06/03/24 documented as of this encounter Additional Source Comments The information contained in this document represents components of the legal health record. It is not the complete legal health record.[facility]
--- OUTSIDE RECORDS SUMMARY | 2025-03-27 12:58 | XMS_ITS | Encounter Summary ---
Author Organization [facility] Address [address] [place] [address] [place] [address] Phone Care Team Providers Care Facility Maintenance Mechanic Name Role Phone Vince Wilcox MD Primary Care Provider [phone] Vince Wilcox MD Primary Care Provider [phone] Bhanva Cormier MD Primary Care Provider Encounter Details Date Type Department Care Team (Late st Contact Info) Description 06/19/2023 Procedure Pass [facility] Endoscopy Admitting Dept Virtual Department 30 [place], [place] [id number] Social History Tobacco Use Types Packs/Day Years [...] st Contact Info) Description 02/12/2025 Procedure Pass [facility] [address] [place] [address] 04/05/2025 4:10 PM EST Office Visit [facility] Obstetrics and Gynecology Clinic [address] [place] [address] [place] [address] Jazz Walls CNM, MPH 22 [facility] 102 [place] [address] 04/26/2025 9:45 AM EST Office Visit [facility] Orthopedics and Sports Medicine Clinic [address] [place] [address] Lucius Bennett MD [address] [place] [address] Orthopedics & Sports Medicine, [facility]. [place], [place] 05/10/2025 4:30 PM EST Office Visit [facility] Primary Care Clinic [address] [place] [address] Bhavna Cormier MD [address] [place] [address] [email or web address] 08/19/2025 4:20 PM EDT Office Visit [facility] Endocrinology Clinic [address] [place] [address] John Hamlin DO 22 [place] [address] 11/09/2025 8:45 AM EDT Appointment [facility] [address] 3rd [place] [address] Leonel Wesley DO 22 [facility] [address] [place] [address] [email or web address] 11/12/2025 11:15 AM EDT Appointment [address] [place] [address] Dorota Ku MD [address] [address] [email or web address] 11/22/2025 9:00 AM EDT Office Visit [facility] [address] [place] [address] Dr 3rd Floor, [address] [place] [address] Anthony Butler MD [address] [place] [address], [address] [place] [address] [email or web address] documented as of this encounter Visit Diagnoses Not on filedocumented in this encounter Additional Health Concerns Infection Onset Date Last Indicated Resolved Time CoV-Risk 12/15/2024 12/15/2024 12/26/2024 1:21 AM EDT documented as of this encounter Care Teams Facility Maintenance Mechanic Relationship Specialty Start Date End Date Vince Wilcox MD [address] [place] [address] PCP - General Internal Medicine 09/13/20 02/04/24 Vince Wilcox MD [address] [place] [address] PCP - General Internal Medicine 02/05/24 06/02/24 Bhavna Cormier MD [address] [place] [address] 7 [place] [address] [email or web address] PCP - General Family Medicine 06/03/24 documented as of this encounter Additional Source Comments The information contained in this document represents components of the legal health record. It is not the complete legal health record.[facility]
--- OUTSIDE RECORDS SUMMARY | 2025-03-27 12:58 | XMS_ITS | Encounter Summary ---
Author Organization [facility] Address [address] [place] [address] [place] [address] Phone Care Team Providers Care Workforce Management Coordinator Name Role Phone Bhavna Cormier MD Primary Care Provider Encounter Details Date Type Department Care Team (Late st Contact Info) Description 02/12/2025 Transcribe Orders Virtual Department 30 [place] [address] Yesenia Silveira [place] [email or web address] Breast screening (Primary Dx) Social History Tobacco Use Types [...] high school, GED, job training, learning the [place] language, technical skills, or developing parenting skills)? 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 on file Not on file documented as of this encounter Plan of Treatment Upcoming Encounters Date Type Department Care Team (Late st Contact Info) Description 02/12/2025 Procedure Pass [place] [facility] - [address] [place] [address] 04/05/2025 4:10 PM EST Office Visit [facility] Obstetrics and Gynecology Clinic [address] [place] [address] [place] [address] Jazz Walls CNM, MPH 22 [facility], [address] [place] [address] 04/26/2025 9:45 AM EST Office Visit [facility] Orthopedics and Sports Medicine Clinic [address] [place] [address] Lucius Bennett MD [address] [place] [address] Orthopedics & Sports Medicine, [place] [address] 05/10/2025 4:30 PM EST Office Visit [facility] Primary Care Clinic [address] [place] [address] Bhavna Cormier MD 234 [facility] 7 [place] [address] [email or web address] 08/19/2025 4:20 PM EDT Office Visit [facility] Endocrinology Clinic [address] [place] [address] John Hamlin 22 [place] [address] 11/09/2025 8:45 AM EDT Appointment [facility] [address] 3rd [place] [address] Leonel Wesley DO 22 [facility] [address] [place] [address] 11/12/2025 11:15 AM EDT Appointment [facility] - [address] [place] [address] Dorota Ku MD [address] [address] [email or web address] 11/22/2025 9:00 AM EDT Office Visit [facility] 22 [facility] 3rd Floor, [address] [place] [address] Anthony Butler MD [address] [place] [address], [address] [place] [address] [email or web address] Scheduled Orders Name Type Priority Associated Diagnoses Orde r Schedule Mammogram Screening (Bilateral) Imaging Routine Breast screening Expected: 02/12/2025, Expires: 02/12/2027 documented as of this encounter Visit Diagnoses Diagnosis Breast screening- Primary Breast screening, unspecified documented in this encounter Additional Health Concerns Assessment Noted Time PHQ-2 Depression Total Score: 0 02/12/20 9:10 PM EST documented as of this encounter Care Teams Workforce Management Coordinator Relationship Specialty Start Date End Date Bhavna Cormier MD [address] [place] [address] 7 [place] [address] [email or web address] PCP - General Family Medicine 06/03/24 documented as of this encounter Additional Source Comments The information contained in this document represents components of the legal health record. It is not the complete legal health record.[facility]
--- OUTSIDE RECORDS SUMMARY | 2025-03-27 12:58 | XMS_ITS | Encounter Summary ---
Author Organization [facility] Address [address] [place] [address] Phone Care Team Providers Care Utilization Management Manager Name Role Phone Vince Wilcox MD Primary Care Provider [phone] Vince Wilcox MD Primary Care Provider [phone] Bhavna Cormier MD Primary Care Provider Reason for Referral * MRI/CAT Scan - Closed Specialty Diagnoses / Procedures Referred By Michael wilson Referred To Contact Radiology Diagnoses Abdominal pain, unspecified abdominal location Procedures CT Abdomen/Pelvis CHG CT SCAN,ABDOMENT AND PELVIS,W CONTRAST Arleth Redd PA [address] [place] [address] Phone: tel: fax: Referral ID Status Reason Start Date Expiration Date Visits Re quested Visits Authorized [id number] Closed 05/01/2023 06/30/2023 1 1 Encounter Details Date Type Department Care Team (Latest Contact Info) Description 05/01/2023 Transcribe Orders Virtual Department 30 [place] [address] Arleth Redd PA 10 [place] [address] Abdominal pain, unspecified abdominal location (Primary Dx) [...] Industry 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 Job End Date 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 Not on fi le Not on file Not on file documented as of this encounter Plan of Treatment Upcoming Encounters Date Type Department Care Team (Late st Contact Info) Description 02/12/2025 Procedure Pass [facility] - [address] [place] [address] 04/05/2025 4:10 PM EST Office Visit [facility] Obstetrics and Gynecology Clinic [address] [place] [address] [place] [address] Jazz Walls CNM, MPH [address] [place] [address], [address] [address] 04/26/2025 9:45 AM EST Office Visit [facility] Orthopedics and Sports Medicine Clinic [address] [place] [address] Lucius Bennett MD [address] [place] [address] Orthopedics & Sports Medicine, [facility] [place] [address] 05/10/2025 4:30 PM EST Office Visit [facility] Primary Care Clinic [address] [place] [address] Bhavna Cormier MD 234 [facility] 7 [place] [address] [email or web address] 08/19/2025 4:20 PM EDT Office Visit [facility] Endocrinology Clinic [address] [place] [address] John Hamlin DO 22 [place] [address] 11/09/2025 8:45 AM EDT Appointment [facility] [address] 3rd [place] [address] Leonel Wesley DO 22 [facility] [address] [place] [address] 11/12/2025 11:15 AM EDT Appointment [facility] - [address] [place] [address] Dorota Ku MD [address] [address] [email or web address] 11/22/2025 9:00 AM EDT Office Visit [facility] [address] [place] [address] 3rd Floor, [address] [place] [address] Anthony Butler MD [address] [place] [address], [address] [address] [email or web address] documented as of [...] documented as of this encounter Care Teams Utilization Management Manager Relationship Specialty Start Date End Date Vince Wilcox MD [address] [place] [address] PCP - General Internal Medicine 09/13/20 02/04/24 Vince Wilcox MD [address] [place] [address] PCP - General Internal Medicine 02/05/24 06/02/24 Bhavna Cormier MD [address] [place] [address], [address] [place] [address] [email or web address] PCP - General Family Medicine 06/03/24 documented as of this encounter Additional Source Comments The information contained in this document represents components of the legal health record. It is not the complete legal health record.[facility]
[2025-03-27 13:08] VITALS: BP 90/60; PULSE 71; RESP 16; TEMP 37.1; O2SAT 98; BMI 25.6
--- NOTE | 2025-03-27 13:08 | AM.OFFWIN_ITS ---
Intake Vital Signs 03/27/25 13:08 Height 5 ft 2 in Weight 140 lb BMI 25.6 BP 90/60 Blood Pressure Location Lt brachial Position Sitting Respiration 16 Pulse 71 Pulse Source Pulse Oximeter Temp 98.7 F Temp Source Oral Pulse Oximetry (%) 98 Oxygen Delivery Method Room Air Intake Visit Reasons: EP Chest congestion Intake Note: Pt is here today c/o chest congestion since yesterday Patient Tobacco Use Status: Former Tobacco user Electroplater Automatic Required: No Allergies alendronate sodium Adverse Reaction (Mild, Verified 03/27/25 13:09) Difficulty Breathing statin Adverse Reaction (Mild, Uncoded 03/27/25 13:09) Muscle Cramps HPI EP Chest congestion HPI Details Patient is a 64-year-old female with COPD history, who comes to the walk-in clinic complaining of chest congestion that started yesterday. She has a prior long-term smoker who has since quit smoking, and is up-to-date on her low dose CT scans. She reports that she is emphysema type, but also that she does get chest congestion diagnosed as bronchitis at least once a year. 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 She ended up being prescribed an antibiotic after 3 weeks of coughing with the last bronchitis episode, and requests antibiotics now to prevent her symptoms from worsening . She denies history of pneumonia. She has no fever or chills, purulent productive cough, shortness of breath, difficulty sleeping, chest pain or burning in the chest, nausea vomiting or diarrhea, head ache or dizziness, coughing fits, weakness, headache, sore throat, or other significant associated symptoms. 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 Current occupational exposures/hazards: No Cognitive needs: No Hearing needs: No Vision needs: Yes Review of Systems Const All systems reviewed & are unremarkable except as noted in HPI and below Physical Exam Vital Signs: Last Vital Signs Temp 98.7 F 03/27/25 13:08 Pulse 71 03/27/25 13:08 Resp 16 03/27/25 13:08 BP 90/60 03/27/25 13:08 Pulse Ox 98 03/27/25 13:08 Oxygen Delivery Method Room Air 03/27/25 13:08 BMI result Body Mass Index 25.6 Const General: cooperative, healthy appearing, comfortable, no acute distress, alert, awake, Physically active and well groomed; No anxious, diaphoretic, ill appearing, intoxicated appearing, poor hygiene or tired appearing Nutritional Appearance: average body habitus Orientation/consciousness: oriented to person Limitations: no limitations HEENT Head: Yes normal to inspection, Yes normocephalic and Yes atraumatic Ears: hearing grossly normal bilaterally, external ears normal, TM's normal bilaterally and EAC's normal General nose exam: Normal external nose present, Normal nares present, No nasal polyps present, Normal nasal mucous membranes and turbinates present, Normal septum present and No nasal discharge present Face and sinus: Yes normal facial exam, Yes sinuses nontender and Yes face s ymmetric Mouth: Normal oral and palatal mucosa present, lip normal and tongue normal Throat: No peritonsillar mass, Yes postnasal drainage, No uvular edema and No cobblestoning Eyes General: appearance normal, both eyes and all related structures Neck Neck: Yes normal visual inspection, Yes full ROM, Yes no lymphadenopathy, Yes trachea midline, Yes supple and No anterior neck swelling Chest Chest palpation & inspection: normal palpation of entire chest wall Resp Effort & Inspection: normal respiratory effort, able to speak in complete sentences, no audible wheezes, Actively coughing (Occasional, mildly congested), no grunting, not labored, no nasal flaring, no pursed lip breathing, no respiratory distress, no retractions, not tachypneic, no tripod positioning, no use of accessory muscles, No prolonged expiratory phase and symmetric chest movement Auscultation: clear to auscultation bilaterally, no crackles, no rales, no rhonchi, no wheezes, lung sounds not diminished and No rub present Percussion: percussion normal Cardio Palpation: normal PMI Rate: regular rate Rhythm: regular rhythm Heart sounds: S1 normal heart sound present and S2 normal heart sound present Skin Other: Good color, warm and dry Neuro General: oriented to person Psych Appearance: grossly normal Mental Status: mental status grossly normal Speech and movement: Normal speech and movement present Affect: normal affect Attitude: cooperative Thought process: Normal thought process present Insight: Good insight present (Psych) Judgement: Good judgement present (Psych) Assessment & Plan Assessment & Plan (1) Bronchitis: Code(s): J40 - Bronchitis, not specified as acute or chronic Plan COPD patient with emphysema, and 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 She is currently only having a rare congested cough, at this time oropharyngeal mucous visible, and no rhonchi auscultated in the lung arce yet, although some soft rhonchi can be heard radiating near the trachea during a cough. She is not having any coughing fits, and shows no signs of being short of breath. Results are pending for flu COVID and RSV. We discussed how this is likely an acute upper respiratory infection that is likely to become Acute on chronic bronchitis soon, and possible COPD exacerbation. Currently, she should be drinking water and starting Mucinex to try to get the mucus out before it becomes a lower respiratory infection. If her cough starts to worsen, and becomes more productive in nature, she has a course of azithromycin that she can start. She has indicated that she has never needed prednisone in the past, and at this point I will hold off on writing this for her. She knows to follow up if her symptoms persist or worsen, and she knows to go to the emergency department if symptoms become worrisome. Orders: Orders SARS-CoV2/FLU/RSV 03/27/25 J06.9 - Acute upper respiratory infection, unspecified Medications: New azithromycin take 500 mg today (day 1), then 250 mg for 4 days (days 2-5) PO 6 tabs 0RF azithromycin take 500 mg today (day 1), then 250 mg for 4 days (days 2-5) PO 6 tabs 0RF Coding Level of Care Code Est Pt Level 4 (01892) Diagnoses Bronchitis J40
== END 2025-03-27 14:05 | disposition home or self-care (01) ==
PROVIDERS: Visit Provider Physician Assistant Medical
DX: J40 Bronchitis, not specified as acute or chronic (principal)